=== PATIENT | male | born 1980 | race Caucasian/White ===

== ENCOUNTER 2016-04-20 20:33 | Inpatient (IN) | payer OTHER ==
[~2016-04-20] VITALS: Ht 175.3 cm; Wt 68.7 kg
[~2016-04-20 20:33] MED LIST: Aspirin PO; CREON DR 24,001 EACH PO; ELIQUIS2.5 MG PO; ESCITALOPRAM10 MG PO; FLUOXETINE HCL20 MG PO; FOLIC ACID 1 MG PO; HUMALOG100 U/ML IC; IMODIUM 2 MG. CA2 MG PO; LANTUS INS100 UNITS/ IC; LEVEMIR 10100 UNITS/ SC; LEVEMIR FL100 UNIT/1 SC; LEXAPRO 10MG10 MG PO; MOTRIN 600 MG600 MG PO; NALTREXONE HCL50 MG PO; NEURONTIN300 MG PO; NEXIUM40 M1 PO; NOVOLOG100 U/ML; NOVOLOG100 U/ML SC; PANTOPRAZOLE SO40 MG PO; PERCOCET 325 MG1 TA2 PO; PERCOCET 5-3251 EACH PO; PRILOSEC 20MG C20 MG PO; QUETIAPINE FUMA25 MG PO; REMERON 15MG TA15 MG PO; SEROQUEL50 MG PO; TYLENOL TAB 32325 MG PO; Theragran Vitamins PO; VICODIN 5-3001 EACH PO; VISTARIL50 MG PO; VITAMIN B1100 MG PO; ZOFRAN ODT4 M1 SL; ZOFRAN4 M2 PO
[2016-04-20 21:15] LABS: ABSOLUTE BASOPHIL COUNT 0 /CUMM (0.0-0.2); ABSOLUTE EOSINOPHIL COUNT 0.1 /CUMM (0.0-0.7); ABSOLUTE GRANULOCYTE CT 4.2 /CUMM (1.4-6.5); ABSOLUTE LYMPH COUNT 2.9 /CUMM (1.2-3.4); ABSOLUTE MONOCYTE COUNT 0.3 /CUMM (0.10-0.60); BASOPHIL % 0.5 % (0.0-2.0); EOSINOPHIL % 1.3 % (0-5); GRANULOCYTE % 56.2 % (42.2-75.2); MEAN CORPUSCULAR HGB 29.4 PG (27.0-31.0); MEAN CORPUSCULAR HGB CONC 33.6 G/DL (33.0-37.0); MEAN CORPUSCULAR VOLUME 87.5 FL (80.0-94.0); MEAN PLATELET VOLUME 8.7 FL (7.4-10.4); PLATELET COUNT 220 /CUMM (130-400); RBC DISTRIBUTION WIDTH 15.1 % (11.5-14.5); RED BLOOD CELL CT 5.03 /CUMM (4.70-6.10); WHITE BLOOD CELL COUNT 7.5 /CUMM (4.8-10.8)
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
[2016-04-21 07:10] VITALS: BP 89/54
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
[2016-04-21 09:00] VITALS: BP 108/62
[2016-04-21 16:00] VITALS: BP 92/50
[2016-04-21 20:00] VITALS: BP 104/62
[2016-04-21 22:00] VITALS: BP 104/64
--- NOTE | 2016-04-21 22:42 | Admission Certification ---
Admission Certification Certification Statement - As attending physician, I certify that at the time of - admission, based on clinical presentation, severity of - symptoms, need for further diagnostic testing and - therapeutic interventions, and risk of adverse outcomes - without in-hospital treatment, in my clinical assessment, - this patient requires an acute hospital stay for a minimum - of two nights or longer. I have also considered psychsocial - factors such as support system, advanced age, financial - issues, cognitive issues, and failed out-patient treatments, - past re-admission history, safety of patient, and lack of - compliance as applicable. Specific rationale supporting this admission is: Intentional insulin overdose, hypoglycemia. Suicide attempt.
[2016-04-22] VITALS (9 sets, daily range): BP systolic 93–154; BP diastolic 57–80
--- NOTE | 2016-04-22 08:12 | PN- Diabetes ---
Assessment/Plan Assessment: The patient is still having low sugars. His fingerstick blood sugar this morning is 67. He took about 200 units of Levemir at 6 PM about 36 hours ago. However the effects have persisted as he is probably absorbing it slowly over time. He is able to eat to help keep his sugar up and at times he has received 50% glucose. The patient is alert and awake this morning and states he feels OK. He is going to eat breakfast. Plan: Suggest continue D10W intravenously and continue to monitor his sugars every few hours. He should continue to eat a high carbohydrate diet. He states that his usual dose of insulin is 20 units of Levemir once a day If his sugars become begin to become elevated tonight we could begin Levemir 10 units once a day beginning this evening. Subjective Subjective: Feels okay. Notices low sugar at times. Objective Last 24 Hrs of Vital Signs/I&O Vital Signs Date Time Temp Pulse Resp B/P Pulse O2 O2 Flow FiO2 Ox Delivery Rate 04/22 0600 75 20 95/57 /02 0400 97.7 55 18 100/60 04/22 0400 97 Room Air / 0200 85 16 118/64 02 0000 Room Air 02/ 0000 98.2 61 18 100/60 Room Air 02/02 0000 98.2 61 18 100/60 / 2200 98.4 72 22 104/64 02/ 2000 98.4 78 22 104/62 02/01 1600 98.1 62 13 92/50 95 Room Air 02/ 0900 98.0 76 16 108/62 97 Room Air 02/ 0829 97.5 82 18 116/59 95 Room Air Intake & Output / 1600 02/02 0800 /02 0000 Intake Total 1350 3700 Output Total 800 Balance 1350 2900 Intake, IV 1200 2200 Intake, Oral 150 1500 Output, Urine 800 Vital Signs Date Time Temp Pulse Resp B/P Pulse O2 O2 Flow FiO2 Ox Delivery Rate 04/22 0600 75 20 95/57 /02 0400 97.7 55 18 100/60 /02 0400 97 Room Air /02 0200 85 16 118/64 02/02 0000 Room Air 02/02 0000 98.2 61 18 100/60 Room Air 02/02 0000 98.2 61 18 100/60 02/01 2200 98.4 72 22 104/64 02/ 2000 98.4 78 22 104/62 02/ 1600 98.1 62 13 92/50 95 Room Air / 0900 98.0 76 16 108/62 97 Room Air / 0829 97.5 82 18 116/59 95 Room Air Intake & Output / 1600 / 0800 / 0000 Intake Total 1350 3700 Output Total 800 Balance 1350 2900 Intake, IV 1200 2200 Intake, Oral 150 1500 Output, Urine 800 Physical Exam General Appearance: well developed/nourished, alert, awake Head: atraumatic Respiratory: normal breath sounds Cardiovascular: regular rate/rhythm Abdomen: normal bowel sounds Extremities: normal inspection Current Medications: Current Medications Sig/Alejandrina Start time Last Medication Dose Route Stop Time Status Admin Acetaminophen 1,000 MG Q6P PRN 04/21 0915 AC IV Acetaminophen 650 MG Q6-PRN PRN 04/21 0215 AC PO Cyanocobalamin/ 1 BAG DAILY 04/21 1000 KY Thiamine/Pyridoxine IV Dextrose/Water 1,000 ML Dextrose 25 GM ONCE ONE 04/22 0230 DC 04/22 IV 04/22 0231 0231 Dextrose 25 GM Q1 NEEDED PRN 04/21 1000 AC IV Dextrose 25 GM ONCE ONE 04/21 0945 DC 04/21 IV 04/21 0946 0930 Dextrose/Water 1,000 ML Q8H 04/21 1104 AC 04/22 IV 0234 Dextrose/Water 1,000 ML Q10H 04/21 0100 DC 04/21 IV 1029 Enoxaparin Sodium 40 MG DAILY 04/21 1000 AC 04/21 SC 1029 Fluoxetine HCl 20 MG DAILY 04/21 1000 AC 04/21 PO 1029 Folic Acid 1 MG DAILY 04/21 1115 AC 04/21 PO 1254 Lorazepam 1.5 MG Q6H 04/22 1200 AC PO 04/23 0601 Lorazepam 2 MG Q6 04/21 1200 DC 04/22 PO 0529 Lorazepam 0 Q1P PRN 04/21 1115 AC IV Magnesium Oxide 800 MG ONCE ONE 04/21 1700 DC 02/ PO 04/21 1701 1825 Magnesium Oxide 800 MG ONE ONE 04/21 1000 DC 02 PO 04/21 1001 1105 Melatonin 5 MG AT BEDTIME 04/21 2245 AC 04/21 PO 2350 Multivitamins 1 TAB DAILY 04/21 1115 AC 04/21 PO 1254 Ondansetron HCl 4 MG Q6P PRN 04/21 0915 AC 04/21 IV 1105 Oxycodone/ 2 TAB Q6P PRN 04/21 0915 AC 04/22 Acetaminophen PO 0808 Pantoprazole Sodium 40 MG DAILY 04/21 0215 AC IV Potassium Chloride 40 MEQ ONCE ONE 04/21 1000 DC 04/21 PO 04/21 1001 1031 Potassium Chloride 0 .STK-MED ONE 04/21 0822 DC PO Potassium Chloride 20 MEQ ONCE ONE 04/21 0815 DC 04/21 PO 04/21 0816 0823 Thiamine HCl 100 MG DAILY 04/21 1115 AC 04/21 PO 1254 Findings Pertinent Lab/Judson Results: Laboratory Tests 04/22 04/21 04/21 04/21 04/21 0655 1455 1430 0850 0850 Chemistry Sodium (137 - 145 mmol/L) 135 L 136 L 141 Potassium (3.5 - 5.1 mmol/L) 3.9 4.4 3.8 Chloride (98 - 107 mmol/L) 101 100 103 Carbon Dioxide (22 - 30 mmol/L) 30 30 27 Anion Gap (5 - 16) 4 L 7 11 BUN (9 - 20 mg/dL) 9 14 13 Creatinine (0.7 - 1.2 mg/dL) 0.7 0.8 0.7 Estimated GFR (>60 ml/min) > 60 > 60 > 60 Glucose (65 - 99 mg/dL) 90 103 H 55 L Lactic Acid (0.7 - 2.1 mmol/L) 1.7 2.7 H Calcium (8.4 - 10.2 mg/dL) 8.7 8.5 8.6 Phosphorus (2.5 - 4.5 mg/dL) 3.6 4.2 3.5 Magnesium (1.6 - 2.3 mg/dL) 1.8 1.4 L 1.3 L Total Bilirubin (0.2 - 1.3 mg/dL) 1.0 0.6 0.7 AST (17 - 59 U/L) 52 46 54 ALT (21 - 72 U/L) 45 47 47 Albumin (3.5 - 5.0 g/dL) 3.4 L 3.6 3.9 Toxicology Urine Opiates Screen (>2000 NG/ML) 263.00 Methadone Screen (>300 NG/ML) < 40 Barbiturate Screen (>200 NG/ML) < 60 Ur Phencyclidine Scrn (>25 NG/ML) < 6.00 Amphetamines Screen (>1000 NG/ML) < 100 U Benzodiazepines Scrn (>200 NG/ML) < 85 Urine Cocaine Screen (>300 NG/ML) < 50 Urine Cannabis Screen (>50 NG/ML) < 5.00
--- NOTE | 2016-04-22 09:21 | PN- CRCU ---
Subjective HPI/Critical Care Issues: pt seen and examined glucose still low 67 finger stick this am pt awake and alert no n/v/d/c no bush no dizziness no cp no dyspnea Objective Current Medications: Current Medications Sig/Alejandrina Start time Last Medication Dose Route Stop Time Status Admin Acetaminophen 1,000 MG Q6P PRN 04/21 0915 AC IV Acetaminophen 650 MG Q6-PRN PRN 04/21 0215 AC PO Cyanocobalamin/ 1 BAG DAILY 04/21 1000 DC Thiamine/Pyridoxine IV Dextrose/Water 1,000 ML Dextrose 25 GM ONCE ONE 04/22 0230 DC 04/22 IV 04/22 0231 0231 Dextrose 25 GM Q1 NEEDED PRN 04/21 1000 AC IV Dextrose 25 GM ONCE ONE 04/21 0945 DC 04/21 IV 04/21 0946 0930 Dextrose/Water 1,000 ML Q8H 04/21 1104 AC 04/22 IV 0234 Dextrose/Water 1,000 ML Q10H 04/21 0100 DC 04/21 IV 1029 Enoxaparin Sodium 40 MG DAILY 04/21 1000 AC 04/21 SC 1029 Fluoxetine HCl 20 MG DAILY 04/21 1000 AC 04/21 PO 1029 Folic Acid 1 MG DAILY 04/21 1115 AC 04/21 PO 1254 Lorazepam 1.5 MG Q6H 04/22 1200 AC PO 04/23 0601 Lorazepam 2 MG Q6 04/21 1200 DC 04/22 PO 0529 Lorazepam 0 Q1P PRN 04/21 1115 AC IV Magnesium Oxide 800 MG ONCE ONE 04/22 0915 DC PO 04/22 0916 Magnesium Oxide 800 MG ONCE ONE 04/21 1700 DC 04/21 PO 04/21 1701 1825 Magnesium Oxide 800 MG ONE ONE 04/21 1000 DC 04/21 PO 04/21 1001 1105 Melatonin 5 MG AT BEDTIME 04/21 2245 AC 04/21 PO 2350 Multivitamins 1 TAB DAILY 04/21 1115 AC 04/21 PO 1254 Ondansetron HCl 4 MG Q6P PRN 04/21 0915 AC 04/21 IV 1105 Oxycodone/ 2 TAB Q6P PRN 04/21 0915 AC 04/22 Acetaminophen PO 0808 Pantoprazole Sodium 40 MG DAILY 04/21 0215 AC IV Potassium Chloride 40 MEQ ONCE ONE 04/22 0915 DC PO 04/22 0916 Potassium Chloride 40 MEQ ONCE ONE 04/21 1000 DC 04/21 PO 04/21 1001 1031 Thiamine HCl 100 MG DAILY 04/21 1115 AC 04/21 PO 1254 Vital Signs & I&O Last 24 Hrs of Vitals and I&O: Vital Signs Date Time Temp Pulse Resp B/P Pulse O2 O2 Flow FiO2 Ox Delivery Rate 04/22 0600 75 20 95/57 04/22 0400 97.7 55 18 100/60 04/22 0400 97 Room Air 04/22 0200 85 16 118/64 04/22 0000 Room Air 04/22 0000 98.2 61 18 100/60 Room Air 04/22 0000 98.2 61 18 100/60 04/21 2200 98.4 72 22 104/64 04/21 2000 98.4 78 22 104/62 04/21 1600 98.1 62 13 92/50 95 Room Air Intake & Output 04/22 1600 04/22 0800 04/22 0000 Intake Total 1350 3700 Output Total 800 Balance 1350 2900 Intake, IV 1200 2200 Intake, Oral 150 1500 Output, Urine 800 Exam Other Physical Findings: gen awake and alert heent ncat cvs s1, s2 lungs ctab abd soft bs+ ext without edema Results Last 24 Hrs of Lab Results: Laboratory Tests 04/22/16 0655: Anion Gap 4 L, Estimated GFR > 60, Glucose 90, Calcium 8.7, Phosphorus 3.6, Magnesium 1.8, Total Bilirubin 1.0, AST 52, ALT 45, Albumin 3.4 L 04/21/16 1455: Anion Gap 7, Estimated GFR > 60, Glucose 103 H, Lactic Acid 1.7, Calcium 8.5, Phosphorus 4.2, Magnesium 1.4 L, Total Bilirubin 0.6, AST 46, ALT 47, Albumin 3.6 04/21/16 1430: Urine Opiates Screen 263.00, Methadone Screen < 40, Barbiturate Screen < 60, Ur Phencyclidine Scrn < 6.00, Amphetamines Screen < 100, U Benzodiazepines Scrn < 85, Urine Cocaine Screen < 50, Urine Cannabis Screen < 5.00 Impression/Plan Impression/Plan Impression/Plan: Impression 35-year-old man with diabetes history of PE with a suicide attempt multiple times in the past as well. Ingestion/misuse of subcutaneous insulin. Plan -Endocrinology consultation -Psychiatry consultation -Monitor fingersticks -Once off D10 can be DG to GM -The patient has not been taking Eliquis for his history of PE however given his suicide attempt it would not be to start an anticoagulant, if he overdoses on this, it will be life threatening, he should not be anticoagulated based on his suicide attempt history -DVT prophylaxis at all times at this time TTS 35 min
--- NOTE | 2016-04-22 11:40 | PN- Resident CRCU ---
Subjective HPI/CRCU Issues: Pt in ICU for: suicide attempt with insulin overdose now getting D10 fluids. Saw pt at bedside. He is doingwell this am. no complaints. no acute overnight events. Lowest sugar at 67; no D50 administered; pt encouraged to drink juice and eat carbx. Objective Vital Signs & I&O Last 8 Hrs of Vitals and I&O: Laboratory Tests 04/22 04/21 04/21 0655 1455 1430 Chemistry Sodium (137 - 145 mmol/L) 135 L 136 L Potassium (3.5 - 5.1 mmol/L) 3.9 4.4 Chloride (98 - 107 mmol/L) 101 100 Carbon Dioxide (22 - 30 mmol/L) 30 30 Anion Gap (5 - 16) 4 L 7 BUN (9 - 20 mg/dL) 9 14 Creatinine (0.7 - 1.2 mg/dL) 0.7 0.8 Estimated GFR (>60 ml/min) > 60 > 60 Glucose (65 - 99 mg/dL) 90 103 H Lactic Acid (0.7 - 2.1 mmol/L) 1.7 Calcium (8.4 - 10.2 mg/dL) 8.7 8.5 Phosphorus (2.5 - 4.5 mg/dL) 3.6 4.2 Magnesium (1.6 - 2.3 mg/dL) 1.8 1.4 L Total Bilirubin (0.2 - 1.3 mg/dL) 1.0 0.6 AST (17 - 59 U/L) 52 46 ALT (21 - 72 U/L) 45 47 Albumin (3.5 - 5.0 g/dL) 3.4 L 3.6 Toxicology Urine Opiates Screen (>2000 NG/ML) 263.00 Methadone Screen (>300 NG/ML) < 40 Barbiturate Screen (>200 NG/ML) < 60 Ur Phencyclidine Scrn (>25 NG/ML) < 6.00 Amphetamines Screen (>1000 NG/ML) < 100 U Benzodiazepines Scrn (>200 NG/ML) < 85 Urine Cocaine Screen (>300 NG/ML) < 50 Urine Cannabis Screen (>50 NG/ML) < 5.00 Vital Signs Date Time Temp Pulse Resp B/P Pulse O2 O2 Flow FiO2 Ox Delivery Rate 04/22 1200 97.8 70 22 100/60 04/22 1200 97 Room Air Room Air 04/22 0800 97.5 84 20 93/57 /02 0800 97.5 84 20 100/60 96 Room Air Room Air 04/22 0800 95 Room Air Room Air / 0600 75 20 95/57 /02 0400 97.7 55 18 100/60 / 0400 97 Room Air / 0200 85 16 118/64 / 0000 Room Air / 0000 98.2 61 18 100/60 Room Air / 0000 98.2 61 18 100/60 04/21 2200 98.4 72 22 104/64 / 2000 98.4 78 22 104/62 04/21 1600 98.1 62 13 92/50 95 Room Air Intake & Output 04/22 1600 04/22 0800 04/22 0000 Intake Total 1350 3700 Output Total 800 Balance 1350 2900 Intake, IV 1200 2200 Intake, Oral 150 1500 Output, Urine 800 Exam General Appearance: well developed/nourished, no apparent distress, alert, awake Head: atraumatic, normal appearance Ears, Nose, Throat: normal pharynx Neck: normal inspection, supple Respiratory: normal breath sounds, chest non-tender, no respiratory distress, quiet respiration, lungs clear Cardiovascular: regular rate/rhythm Gastrointestinal: soft, non-tender Extremities: normal inspection IV Drips IV Drips: d10 Nutrition Nutrition: P.O. diet Current Medications: Current Medications Sig/Alejandrina Start time Last Medication Dose Route Stop Time Status Admin Acetaminophen 1,000 MG Q6P PRN 04/21 0915 AC IV Acetaminophen 650 MG Q6-PRN PRN 04/21 0215 AC PO Dextrose 25 GM ONCE ONE 04/22 0230 DC 04/22 IV 04/22 0231 0231 Dextrose 25 GM Q1 NEEDED PRN 04/21 1000 AC IV Dextrose/Water 1,000 ML Q8H 04/21 1104 AC 04/22 IV 1116 Enoxaparin Sodium 40 MG DAILY 04/21 1000 AC 04/21 SC 1029 Fluoxetine HCl 20 MG DAILY 04/21 1000 AC 04/22 PO 1100 Folic Acid 1 MG DAILY 04/21 1115 AC 04/22 PO 1100 Lorazepam 1.5 MG Q6H 04/22 1200 AC PO 04/23 0601 Lorazepam 2 MG Q6 04/21 1200 DC 04/22 PO 0529 Lorazepam 0 Q1P PRN 04/21 1115 AC IV Magnesium Oxide 800 MG ONCE ONE 04/22 0915 DC 04/22 PO 04/22 0916 1059 Magnesium Oxide 800 MG ONCE ONE 04/21 1700 DC 04/21 PO 04/21 1701 1825 Melatonin 5 MG AT BEDTIME 04/21 2245 AC 04/21 PO 2350 Multivitamins 1 TAB DAILY 04/21 1115 AC 04/22 PO 1100 Ondansetron HCl 4 MG Q6P PRN 04/21 0915 AC 04/21 IV 1105 Oxycodone/ 2 TAB Q6P PRN 04/21 0915 AC 04/22 Acetaminophen PO 0808 Pantoprazole Sodium 40 MG DAILY 04/21 0215 AC 04/22 IV 1100 Potassium Chloride 40 MEQ ONCE ONE 04/22 09 DC 04/22 PO 04/22 0916 1100 Thiamine HCl 100 MG DAILY 04/21 1115 AC 04/22 PO 1101 Impression/Plan Impression/Problem List Impression: Impression/Plan: This is a 35-year-old male with past medical history significant for alcohol dependence with chronic pancreatitis, type 1 diabetes, chronic back pain, 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 Additionally, patient has alcohol dependence with last drink of 750 mL of hard liquor on 03/20 evening. In ED he was noted to have mild hypotension, lethargy, with blood sugars ranging between 269 and 62. Admitted to ICU for D10 and q1hr accuckeck. PLAN: Respiratory: Patient satting well on room air. He has hx of PE with IVC filter and on eliquis. He has not been prescribed for several months and he has not taken it. Upon speaking with pt he stated that if he had any access to Eliquis he would have attempted to overdose on it as well. Considering that it could be potentially fatal the risk-benefit strategy would suggest that pt remain off anticoagulation as he more likely to harm himself with medication. Continue to monitor. Per CT in January 2016: IVC filter unchanged. ID: Hypothermic, with normal white count. Does not complain of change in abdominal pain. Con't monitor. CVS:Had Bp in 80s/50s during ED admission. Today BP WNL. Heme/onc: stable. Con't monitor Musculoskeletal: Stable. Con't monitor GI: Chronic pancreatitis: STABLE. Pt has chronic pancreatitis secondary to etoh/ multiple episodes of acute pancreatitis. Per CT done in Jan 2016:Chronic changes related to findings consistent with a chronic pancreatitis unchanged. No evidence for recurrent acute pancreatitis. No pseudocyst or peripancreatic mass. He does not complain of increase or change in quality of abdominal pain. Con't monitor. Amylase lipase within normal limits. Normal LFT * Out pt f/u Nephro: Per CT-Small minimally complex right renal cyst with small amount of peripheral calcification versus adjacent small stone' this has remained stable dating back to 2011 compatible with a benign finding. * Out pt f/u Endo: Insulin overdose: Patient reportedly took 200 units of insulin for overdose and suicide attempt. Unsure how much he actually took. However his insulin level was at 52 during admission. He has resumed eating regular diet. We will encourage high carbohydrate intake initially. Once his blood sugars stabilize we'll plan for your insulin sliding scale and his home dose of 14 units Levemir twice a day. He was on D10 at 125; his last glucose > 200 so we are decreasing rate fo fluids with goal to be off after 3 blood sugars in a row WNL. Additionallyl, AM cortisol 10.3. Lactic acid 2.7. No anion gap, renal function WNL. * repeat labs at 11 AM * high carb diet * plan for resuming home regimen once blood sugars stabilize * D10 at 75cc/hr Psych: Alcohol abuse: He is off banana bag. Started multivitamin. Folic acid given. Today Magnesium 1.3, potassium 3.4. Lat drink on night of admission. Drank a bottle of hard liquor. Currently denying any sob, tremors, shakes, chest pain, etc. Of note Acetaminophen level less than 10, Serum alcohol 367, Negative acetone. CT-TRANSPLANT NURSE shows extensive use of hydrocodone and oxycodone; no prescription of Benzos. * ciwa protocol: Last scores 0,0,0,2,3 * standing 2mg q6 ativan * replete mag and K Pt has supposed hx of: mood disorder, malingering, self-mutilation and cutting, personality disorder, and depression. * psych * social work * utox Full code regualr diet Chemcial dvt ppx Problem List: 1. Chronic pancreatitis 2. Nausea and vomiting 3. Abdominal pain 4. Hypoglycemia due to insulin 5. Suicidal ideation Pain Ratin Pain Location: none Tomorrow's Labs & Rationales: cbc icu Plan DVT/Prophylaxis: pharmacological
--- NOTE | 2016-04-22 13:24 | Cons- Psychiatry ---
Psychiatric Consult Date of Consult: 04/22/16 Reason for Consult: "Suicide attempt. Alcohol dependency, COPD" History of Present Illness: This is a 35-year-old male who presented to the emergency room on 04/20/2016 at 2055, having taken a bus from his home. Per the triage note, he states, "I may have taken too much of my insulin." The patient was noted to be intoxicated and smelling of alcohol in the ED, and reported that he intentionally injected too much insulin. Glucose in the ED was 47 at one point. The patient is well known to our service, and was last admitted to acute inpatient psychiatry in April 2015, and was discharged to a longer term residential program[facility] in [place]. The patient reports today that he was in the [facility] facility, and transferred to the [facility] on [facility] in [place] for 5 months, began drinking, transferred back to [facility] for a few days. The people from [facility] helped him to get a job at [employer] in [place], where he had been working until recently. He had been living with a female friend, who is in recovery, at her place since August 2015. The patient reports that he had a few beers at [facility] and [place], "I didn't think anything of it;" then "I got rocked [intoxicated]" on [place]. CIWA scores from 04/22/2016 0800: 2-4-9-8-3-2-8-8-3-1-1-4-3-0 VS 04/22/16 0800: 100/60, 84HR, 97.5, 20RR, 96% on room air. The patient is currently on lorazepam 1.5 mg PO every 6 hours scheduled for 4 doses, and has lorazepam when necessary ordered per CIWA. He is receiving daily thiamine, folic acid and multivitamin. Allergies: Coded Allergies: adhesive tape (UNKNOWN REACTION TO SURGICAL TAPE 05/13/15) amylase (From Creon) (RASH 05/13/15) lipase (From Creon) (RASH 05/13/15) pancrelipase (RASH 05/13/15) protease (From Creon) (RASH 05/13/15) tramadol (Mild, DIZZY 05/13/15) ketorolac (From TORADOL) (MUSCLE CRAMPING 01/12/16) Current Medications: Current Medications Sig/Alejandrina Start time Last Medication Dose Route Stop Time Status Admin Acetaminophen 1,000 MG Q6P PRN 04/21 0915 AC IV Acetaminophen 650 MG Q6-PRN PRN 04/21 0215 PO Dextrose 25 GM ONCE ONE 04/22 0230 DC 04/22 IV 04/22 0231 0231 Dextrose 25 GM Q1 NEEDED PRN 04/21 1000 AC IV Dextrose/Water 1,000 ML Q8H 04/21 1104 AC 04/22 IV 1116 Enoxaparin Sodium 40 MG DAILY 04/21 1000 AC 04/21 SC 1029 Fluoxetine HCl 20 MG DAILY 04/21 1000 AC 04/22 PO 1100 Folic Acid 1 MG DAILY 04/21 1115 AC 04/22 PO 1100 Lorazepam 1.5 MG Q6H 04/22 1200 AC PO 04/23 0601 Lorazepam 2 MG Q6 04/21 1200 DC 04/22 PO 0529 Lorazepam 0 Q1P PRN 04/21 1115 IV Magnesium Oxide 800 MG ONCE ONE 04/22 0915 DC 04/22 PO 04/22 0916 1059 Magnesium Oxide 800 MG ONCE ONE 04/21 1700 DC 04/21 PO 04/21 1701 1825 Melatonin 5 MG AT BEDTIME 04/21 2245 AC 04/21 PO 2350 Multivitamins 1 TAB DAILY 04/21 1115 AC 04/22 PO 1100 Ondansetron HCl 4 MG Q6P PRN 04/21 0915 AC 04/21 IV 1105 Oxycodone/ 2 TAB Q6P PRN 04/21 0915 AC 04/22 Acetaminophen PO 0808 Pantoprazole Sodium 40 MG DAILY 04/21 0215 AC 04/22 IV 1100 Potassium Chloride 40 MEQ ONCE ONE 04/22 0915 DC 04/22 PO 04/22 0916 1100 Thiamine HCl 100 MG DAILY 04/21 1115 AC 04/22 PO 1101 Past History Past Medical History Neurological: history of TBI EENT: NONE Cardiovascular: NONE Respiratory: pulmonary embolism Gastrointestinal: pancreatitis (complicated by pseudocyst), upper GI bleed, Piedad-Valentino tear Hepatic: NONE Renal: NONE Musculoskeletal: NONE Psychiatric: alcohol dependence, depression, PTSD benzodiazepine dependence suicide attempts Endocrine: diabetes, intentional insulin overdoses Blood Disorders: PE Cancer(s): NONE RISK ANALYST/Reproductive: NONE Past Surgical History Surgical History: IVC filter placement GREY IN R LEG R SCAPULA REPAIR Psychosocial History Strengths/Capabilities: Can be Resourceful; engaging; hard worker, will seek help as needed, sober for 2 months Physical Limitations (Interventions): Patient has several serious medical issues. Psychiatric Treatment History Psych Treatment Psychiatric Treatment Yes Inpatient Treatment Yes Outpatient Treatment Yes Location of Treatment [facility], [facility], and [facility] Reason for Treatment Suicidal ideation, depression, alcohol dependence, benzodiazepine abuse Response to Treatment Improved for short periods of time Diagnosis: Alcohol dependence, benzodiazepine dependence, mood disorder NOS, suicidal ideation, rule out bipolar disorder NOS, personality disorder NOS, with narcissistic traits, rule out antisocial traits. Risk Factors: age (under 24/over 65) (HOMELESS), access to lethal means, high anxiety/distress, history of suicide atmpts, SA/MH hospitalized, substance abuse , isolate/no social support, poor impulse control, male, limited support Substance Use/Abuse History Drug Use/Abuse Substances Used/Abused Yes Substance Used/Abused Alcohol Assessment/Plan Mental Status Orientation: Person, Place, Situation Affect: Constricted, WNL Speech: WNL Mental Status Exam: The patient is sitting up in his bed in ICU room 105. His 1:1 sitter is present , but leaves the room during the interview. He is alert and oriented. He denies history of seizure He denies auditory, visual or tactile hallucinations, and presents no torres delusions. He denies suicidal or homicidal ideation. He reports that he feels safe with himself at this time. He makes a verbal contract to stay safe while in the hospital, and also to not leave before treatment is finished. Insight and judgment are poor. Lab Results: Laboratory Tests 04/22 04/21 04/21 04/21 04/21 0655 1455 1430 0850 0850 Chemistry Sodium (137 - 145 mmol/L) 135 L 136 L 141 Potassium (3.5 - 5.1 mmol/L) 3.9 4.4 3.8 Chloride (98 - 107 mmol/L) 101 100 103 Carbon Dioxide (22 - 30 mmol/L) 30 30 27 Anion Gap (5 - 16) 4 L 7 11 BUN (9 - 20 mg/dL) 9 14 13 Creatinine (0.7 - 1.2 mg/dL) 0.7 0.8 0.7 Estimated GFR (>60 ml/min) > 60 > 60 > 60 Glucose (65 - 99 mg/dL) 90 103 H 55 L Lactic Acid (0.7 - 2.1 mmol/L) 1.7 2.7 H Calcium (8.4 - 10.2 mg/dL) 8.7 8.5 8.6 Phosphorus (2.5 - 4.5 mg/dL) 3.6 4.2 3.5 Magnesium (1.6 - 2.3 mg/dL) 1.8 1.4 L 1.3 L Total Bilirubin (0.2 - 1.3 mg/dL) 1.0 0.6 0.7 AST (17 - 59 U/L) 52 46 54 ALT (21 - 72 U/L) 45 47 47 Albumin (3.5 - 5.0 g/dL) 3.4 L 3.6 3.9 Toxicology Urine Opiates Screen (>2000 NG/ML) 263.00 Methadone Screen (>300 NG/ML) < 40 Barbiturate Screen (>200 NG/ML) < 60 Ur Phencyclidine Scrn (>25 NG/ML) < 6.00 Amphetamines Screen (>1000 NG/ML) < 100 U Benzodiazepines Scrn (>200 NG/ML) < 85 Urine Cocaine Screen (>300 NG/ML) < 50 Urine Cannabis Screen (>50 NG/ML) < 5.00 02 02 02 02 0600 0500 0500 0210 Chemistry Sodium (137 - 145 mmol/L) 145 Potassium (3.5 - 5.1 mmol/L) 3.4 L Chloride (98 - 107 mmol/L) 108 H Carbon Dioxide (22 - 30 mmol/L) 25 Anion Gap (5 - 16) 13 BUN (9 - 20 mg/dL) 12 Creatinine (0.7 - 1.2 mg/dL) 0.6 L Estimated GFR (>60 ml/min) > 60 BUN/Creatinine Ratio (7 - 25 %) 20.0 Hemoglobin A1c (<5.7) 11.3 H Insulin Level (3.0 - 25.0 mIU/mL) Cancelled 52.6 H Lactic Acid (0.7 - 2.1 mmol/L) 2.6 H 2.6 H Cortisol AM Sample (4.46 - 22.7 ug/dL) 10.3 Toxicology Acetaminophen (10.0 - 30.0 ug/mL) < 10.0 L 04/21 04/20 04/20 0217 2143 2108 Blood Gas Bicarbonate Actual (22 - 26 MEQ/L) 24 Mixed VBG pH (7.31 - 7.41 PH) 7.39 Mixed VBG pCO2 (41 - 51 TORR) 41 Mixed VBG O2 Saturation (35 - 45 TORR) 67 H P-50 (Temp Corrected) N Carboxyhemoglobin (1.5 - 5.0 %) 39 *H O2 Concentration % RA Temperature (97.0 - 100.0 FARH) 98.6 Chemistry Sodium (137 - 145 mmol/L) 148 H 144 Potassium (3.5 - 5.1 mmol/L) 3.4 L 3.9 Chloride (98 - 107 mmol/L) 107 100 Carbon Dioxide (22 - 30 mmol/L) 25 23 Anion Gap (5 - 16) 16 21 H BUN (9 - 20 mg/dL) 12 12 Creatinine (0.7 - 1.2 mg/dL) 0.7 0.6 L Estimated GFR (>60 ml/min) > 60 > 60 BUN/Creatinine Ratio (7 - 25 %) 17.1 20.0 Glucose (65 - 99 mg/dL) 47 *L 269 H Lactic Acid (0.7 - 2.1 mmol/L) 3.0 H Calcium (8.4 - 10.2 mg/dL) 8.7 9.2 Magnesium (1.6 - 2.3 mg/dL) 1.7 Total Bilirubin (0.2 - 1.3 mg/dL) 0.4 AST (17 - 59 U/L) 56 ALT (21 - 72 U/L) 55 Alkaline Phosphatase (< 127 U/L) 69 Troponin I (<0.11 ng/ml) < 0.01 Total Protein (6.3 - 8.2 g/dL) 7.6 Albumin (3.5 - 5.0 g/dL) 4.8 Globulin (1.9 - 4.2 gm/dL) 2.8 Albumin/Globulin Ratio (1.1 - 2.2 %) 1.7 Amylase (30 - 110 U/L) < 30 L Lipase (23 - 300 U/L) 28 Hematology CBC w Diff NO MAN DIFF REQ WBC (4.8 - 10.8 /CUMM) 7.5 RBC (4.70 - 6.10 /CUMM) 5.03 Hgb (14.0 - 18.0 G/DL) 14.8 Hct (42 - 52 %) 44.0 MCV (80.0 - 94.0 FL) 87.5 MCH (27.0 - 31.0 PG) 29.4 RDW (11.5 - 14.5 %) 15.1 H Plt Count (130 - 400 /CUMM) 220 MPV (7.4 - 10.4 FL) 8.7 Gran % (42.2 - 75.2 %) 56.2 Lymphocytes % (20.5 - 51.1 %) 38.2 Monocytes % (1.7 - 9.3 %) 3.8 Eosinophils % (0 - 5 %) 1.3 Basophils % (0.0 - 2.0 %) 0.5 Absolute Granulocytes (1.4 - 6.5 /CUMM) 4.2 Absolute Lymphocytes (1.2 - 3.4 /CUMM) 2.9 Absolute Monocytes (0.10 - 0.60 /CUMM) 0.3 Absolute Eosinophils (0.0 - 0.7 /CUMM) 0.1 Absolute Basophils (0.0 - 0.2 /CUMM) 0 PUBS MCHC (33.0 - 37.0 G/DL) 33.6 Miscellaneous Phlebotomy Draw Site L WRIST Toxicology Methadone Screen Cancelled Acetaminophen (10.0 - 30.0 ug/mL) < 10.0 L Barbiturate Screen Cancelled Ur Phencyclidine Scrn Cancelled Amphetamines Screen Cancelled U Benzodiazepines Scrn Cancelled Urine Cocaine Screen Cancelled Urine Cannabis Screen Cancelled Serum Alcohol (<10 MG/DL) 367.0 Acetone Level (NEGATIVE) NEGATIVE NEGATIVE Diffential Diagnosis: Alcohol use disorder, moderate, recurrent Substance induced mood disorder Depression NOS Rule out bipolar disorder Impression: The patient reports that his trigger for overdosing on insulin and coming to the hospital was to get away from the female friend that he lives with. This friend is in recovery from substance or alcohol abuse, and was talking to the patient about quitting his drinking. The patient reports that he has had 2-3 months of sobriety in the last year. He has asked his nurse to reduce his Ativan dosing, as he is on a taper for alcohol withdrawal. I've asked patient to take it as ordered, and that we are reducing it at a reasonable rate to prevent seizure. The patient denies having a seizure event in the past. He feels that if he discharges stewards current situation, "I'll be back in the shit." He would prefer the structured program such as [facility], [facility]. He may also qualify for a [facility] bed at [facility]. I've discussed these possibilities briefly with Brooklynn Joshua LCSW, who will discuss them with the patient again. The patient can possibly discharge without acute inpatient psychiatry if a safe plan can be found, including living situation. He is not currently medically clear yet, as the ICU team is reducing his IV glucose, after which he will be observed for stability. Provisional Treatment Plan: 1. Continue "EtOH detox" benzodiazepam taper protocol. 2. Continue fluoxetine 20 mg by mouth daily. 3. Continue daily thiamine, folic acid and multivitamin. 4. Continue 1:1 safety monitor 5. family caseworker, Brooklynn Joshua LCSW, is aware of the patient, and we will discuss discharge possibilities with him. 6. The patient should not be discharged until cleared by psychiatry. He may need acute inpatient psychiatry. We will continue to follow along with you. Thank you for asking us to participate in [facility]'s care. Cesar Zamora APRN, pager [phone].
[2016-04-23] VITALS (7 sets, daily range): BP systolic 100–102; BP diastolic 60–68
--- NOTE | 2016-04-23 05:39 | PN- Housestaff ---
NAE SKY 04/23/16 0539: Subjective Follow-up For: 1. insulin overdose Subjective: The patient was comfortable this morning. Did not have any new complaints. Vitals were stable overnight. Blood sugars ranged in between 156-225. Still complains of diarrhea 6 this afternoon. As per the patient, he is allergic to Zenpep. He has been taking Creon, every day. Also has been requesting nicotine gum. Low CIWA scores, has not been requiring any extra intravenous Ativan in the last 24 hours. During the day, diarrheal episodes subsided. Discussed with psychiatry, and it was certain that there was a bed available for him to be transferred to inpatient psychiatry. Currently on long-acting and NovoLog sliding scale, with adequate blood sugar control. Also notified Sherman, the nursing staff could check blood glucose every 8 hours. Also discussed with Sherman about continuing the current abdomen taper. Review of Systems Constitutional: Reports: see HPI. Objective Last 24 Hrs of Vital Signs/I&O Vital Signs Date Time Temp Pulse Resp B/P Pulse O2 O2 Flow FiO2 Ox Delivery Rate 04/22 2332 98.4 62 20 118/60 97 Room Air 04/22 1951 98.3 64 18 116/65 02/02 1600 99.1 65 20 98/60 02/02 1600 99.1 65 20 98/60 97 Room Air Room Air 02/ 1200 97.8 70 22 100/60 /02 1200 97 Room Air Room Air 02/ 0800 97.5 84 20 93/57 02/02 0800 97.5 84 20 100/60 96 Room Air Room Air 04/22 0800 95 Room Air Room Air 04/22 0600 75 20 95/57 Intake & Output /03 0800 02/03 0000 04/22 1600 Intake Total 1810 Output Total Balance 1810 Intake, IV 850 Intake, Oral 960 Number 2 Bowel Movements Physical Exam General Appearance: No Acute Distress Other Physical Findings: General Exam: AAOx3, No acute distress, Skin: No rashes, no breakdown HEENT: PERRLA, EOMI Neck: Supple, No JVD No cervical lymphadenopathy CVS: Reg Rate, Normal S1,S2, No MGR Resp: Normal air entry, no ronchi/rales Abdomen: Soft, tenderness positive, Normal Bowel Sounds Neuro: Normal Speech, Strength 5/5 b/l x 4 extremities, Sensation intact, CN III -XII NL, Reflexes 2+ Extremities: No cyanosis, pedal edema Current Medications: Current Medications Sig/Alejandrina Start time Last Medication Dose Route Stop Time Status Admin Acetaminophen 1,000 MG Q6P PRN 04/21 0915 IV Acetaminophen 650 MG Q6-PRN PRN 04/21 0215 PO Dextrose 25 GM Q1 NEEDED PRN 04/21 1000 IV Dextrose/Water 1,000 ML Q8H 04/21 1104 AL 04/22 IV 1116 Enoxaparin Sodium 40 MG DAILY 04/21 1000 04/21 AK 1029 Fluoxetine HCl 20 MG DAILY 04/21 1000 AC 04/22 PO 1100 Folic Acid 1 MG DAILY 04/21 1115 AC 04/22 PO 1100 Insulin Detemir 10 UNITS ONCE ONE 04/22 1999 AL 04/22 AK 04/22 2000 1958 Lorazepam 1.5 MG Q6H 04/22 1200 AC 04/22 PO 04/23 0601 2356 Lorazepam 2 MG Q6 04/21 1200 AL 04/22 PO 0529 Lorazepam 0 Q1P PRN 04/21 1115 IV Magnesium Oxide 800 MG ONCE ONE 04/22 0915 AL 04/22 PO 04/22 0916 1059 Melatonin 5 MG AT BEDTIME 04/21 2245 AC 04/22 PO 2148 Multivitamins 1 TAB DAILY 04/21 1115 AC 04/22 PO 1100 Ondansetron HCl 4 MG Q6P PRN 04/21 0915 04/22 IV 1342 Oxycodone/ 2 TAB Q6P PRN 04/21 0915 AC 04/23 Acetaminophen PO 0153 Pantoprazole Sodium 40 MG DAILY 04/21 0215 04/22 IV 1100 Potassium Chloride 40 MEQ ONCE ONE 04/22 0915 AL 04/22 PO 04/22 0916 1100 Thiamine HCl 100 MG DAILY 04/21 1115 AC 04/22 PO 1101 Last 24 Hrs of Lab/Judson Results Last 24 Hrs of Labs/Mics: Laboratory Tests 04/22/16 0655: Anion Gap 4 L, Estimated GFR > 60, Glucose 90, Calcium 8.7, Phosphorus 3.6, Magnesium 1.8, Total Bilirubin 1.0, AST 52, ALT 45, Albumin 3.4 L Assessment/Plan Assessment: Mr. Castellanos is a 35-year-old man with a past history of alcohol dependence, insulin -dependent diabetes mellitus, chronic pancreatitis (on Creon), pulmonary embolism status post IVC filter (not on any NOAC, d/c'ed for traumatic brain injury), is being evaluated for surreptitious use of insulin. At the time of admission, white is indicated temperature 98.1, pulse rate 72, respiratory rate 16, blood pressure 115/67, 97% on room air. Lab findings indicated WBC 7.5, hemoglobin 14.8, platelets 220, normal sodium-136, potassium 4.4, normal renal function-BUN 14, serum creatinine 0.8. Blood glucose 47. Lactic acid 3.0 (improved to 1.7), AST, ALT-46, 47, alkaline phosphatase 69. Lipase-28. He was admitted to critical care unit, and was started on D10. After the blood sugars stabilized, he was started on Levemir and NovoLog. Differential diagnosis: #1 insulin overdose #2 alcohol abuse #3 electrolyte imbalance Below is the problem list and plan: #1 insulin overdose-currently blood sugars 225, 156. Has been started on Levemir 8 units twice a day. Insulin sliding scale 3 times a day before meals/ at bedtime as per Dr. Recinos's recommendations. #2 alcohol abuse-currently low CIWA scores. Ativan has been changed from 1.5 every 6 to 1 mg every 6. Banana bag, thiamine. #3 chronic pain-Percocet as needed. #4 chronic pancreatitis-patient has been restarted on pancreatic enzymes this a.m. Tolerating well. #5 electrolyte abnormalities-hypokalemia which is resolved. Problem List: 1. ALCOHOL WITHDRAWAL 2. Chronic pancreatitis 3. Nausea and vomiting 4. Abdominal pain Pain Ratin Pain Location: Abdomen Pain Goal: Pain 4 or less Pain Plan: Percocet Tomorrow's Labs & Rationales: No labs necessary-patient to be discharged. DVT/Prophylaxis: pharmacological SALVADOR POLANCO MD 04/23/16 1219: Attending MD Review Statement Attending Statement Attending MD Statement: examined this patient, discuss w/resident/PA/CUSTOMER SALES REPRESENTATIVE, agreed w/resident/PA/CUSTOMER SALES REPRESENTATIVE, reviewed EMR data (avail) Attending Assessment/Plan: 35M PMH Type 1 DM, history of PE s/p IVC filter not on anti-coagulation, chronic pancreatitis, anxiety, depression, multiple suicide attempts with insulin overdoses, presenting with suicide attempt from insulin overdose. Monitored in ICU overnight with transient hypoglycemia managed with dextrose drips, now hyperglycemic again. Complains only of chronic abdominal pain. Exam and labs otherwise normal. 1. Insulin induced hypoglycemia 2. Suicide attempt 3. Type 1 DM 4. Chronic pancreatitis 5. Depression Plan - Continue on general medicine - Follow endocrine recommendations - Start insulin per endocrine guidelines - Restart Creon - Continue home medications - Follow psychiatry and social work recommendations - DVT PPx
--- NOTE | 2016-04-23 07:48 | PN- Diabetes ---
Assessment/Plan Assessment: The patient is alert and awake this morning. The effects of the intentional Levemir overdose are wearing off. His blood sugars have began to become elevated again. His last few sugars are to 25 and 156. The patient did receive 1 dose of Levemir 10 units. He still hates he has some abdominal pain when eating from chronic pancreatitis.. Plan: Suggest begin Levemir today 8 units twice a day the first dose this morning. Also begin sliding scale NovoLog. Sliding-scale NovoLog before meals should be 80-150 give 3 units NovoLog, 151-200 give 4 units NovoLog, 201-250 give 5 units NovoLog, 251-300 give 6 units NovoLog, 301-350 give 7 units NovoLog, 351 of 400 give 8 units NovoLog. A separate sliding scale NovoLog for bedtime should be written. Sliding-scale NovoLog at bedtime should be less than 250 give no insulin 251-300 give 2 units NovoLog, 301-350 give 3 units NovoLog, 351 of 400 give 4 units NovoLog. The patient should be started back on pancreatic enzymes or chronic pancreatitis. Subjective Subjective: Feels okay Review of Systems Constitutional: Denies: chills, fever. Cardiovascular: Denies: chest pain. Gastrointestinal: Reports: abdominal pain. Denies: nausea, vomiting. Skin: Reports: no symptoms. Objective Last 24 Hrs of Vital Signs/I&O Vital Signs Date Time Temp Pulse Resp B/P Pulse O2 O2 Flow FiO2 Ox Delivery Rate 04/22 2331 98.4 62 20 118/60 97 Room Air 04/22 195 98.3 64 18 116/65 /02 1600 99.1 65 20 98/60 /02 1600 99.1 65 20 98/60 97 Room Air Room Air / 1200 97.8 70 22 100/60 /02 1200 97 Room Air Room Air 04/22 0800 97.5 84 20 93/57 02/02 0800 97.5 84 20 100/60 96 Room Air Room Air 04/22 0800 95 Room Air Room Air Intake & Output /03 0800 02/03 0000 04/22 1600 Intake Total 800 1810 Output Total Balance 800 1810 Intake, IV 850 Intake, Oral 800 960 Number 2 Bowel Movements Vital Signs Date Time Temp Pulse Resp B/P Pulse O2 O2 Flow FiO2 Ox Delivery Rate 04/22 2331 98.4 62 20 118/60 97 Room Air 02/ 1951 98.3 64 18 116/65 02/02 1600 99.1 65 20 98/60 02/02 1600 99.1 65 20 98/60 97 Room Air Room Air 02/ 1200 97.8 70 22 100/60 02/02 1200 97 Room Air Room Air 04/22 0800 97.5 84 20 93/57 02/ 0800 97.5 84 20 100/60 96 Room Air Room Air 04/22 0800 95 Room Air Room Air Intake & Output 04/23 0800 / 0000 04/22 1600 Intake Total 800 1810 Output Total Balance 800 1810 Intake, IV 850 Intake, Oral 800 960 Number 2 Bowel Movements Physical Exam General Appearance: alert, awake, comfortable Neck: normal inspection Respiratory: normal breath sounds Abdomen: normal bowel sounds, soft Extremities: normal inspection Current Medications: Current Medications Sig/Alejandrina Start time Last Medication Dose Route Stop Time Status Admin Acetaminophen 1,000 MG Q6P PRN 04/21 0915 IV Acetaminophen 650 MG Q6-PRN PRN 04/21 0215 PO Dextrose 25 GM Q1 NEEDED PRN 04/21 1000 IV Dextrose/Water 1,000 ML Q8H 04/21 1104 DC 04/22 IV 1116 Enoxaparin Sodium 40 MG DAILY 04/21 1000 04/21 DE 1029 Fluoxetine HCl 20 MG DAILY 04/21 1000 AC 04/22 PO 1100 Folic Acid 1 MG DAILY 04/21 1115 AC 04/22 PO 1100 Insulin Detemir 10 UNITS ONCE ONE 04/22 1999 AR 04/22 DE 04/22 2000 195 Lorazepam 1.5 MG Q6H 04/22 1200 DC 04/23 PO 04/23 0601 0636 Lorazepam 0 Q1P PRN 04/21 1115 IV Magnesium Oxide 800 MG ONCE ONE 04/22 0915 DC 04/22 PO 04/22 0916 1059 Melatonin 5 MG AT BEDTIME 04/21 2245 AC 04/22 PO 2148 Multivitamins 1 TAB DAILY 04/21 1115 AC 04/22 PO 1100 Ondansetron HCl 4 MG Q6P PRN 04/21 0915 AC 04/22 IV 1342 Oxycodone/ 2 TAB Q6P PRN 04/21 0915 AC 04/23 Acetaminophen PO 0153 Pantoprazole Sodium 40 MG DAILY 04/21 0215 AC 04/22 IV 1100 Potassium Chloride 40 MEQ ONCE ONE 04/22 0915 DC 04/22 PO 04/22 0916 1100 Thiamine HCl 100 MG DAILY 04/21 1115 AC 04/22 PO 1101 Findings Pertinent Lab/Judson Results: Laboratory Tests 04/23 0645 Chemistry Sodium Pending Potassium Pending Chloride Pending Carbon Dioxide Pending Anion Gap Pending BUN Pending Creatinine Pending Glucose Pending Calcium Pending Phosphorus Pending Magnesium Pending Total Bilirubin Pending AST Pending ALT Pending Albumin Pending Hematology CBC w Diff Pending WBC Pending RBC Pending Hgb Pending Hct Pending MCV Pending MCH Pending RDW Pending Plt Count Pending MPV Pending PUBS MCHC Pending
[2016-04-23 07:53] LABS: ABSOLUTE BASOPHIL COUNT 0 /CUMM (0.0-0.2); ABSOLUTE EOSINOPHIL COUNT 0.2 /CUMM (0.0-0.7); ABSOLUTE GRANULOCYTE CT 3.3 /CUMM (1.4-6.5); ABSOLUTE LYMPH COUNT 1.8 /CUMM (1.2-3.4); ABSOLUTE MONOCYTE COUNT 0.3 /CUMM (0.10-0.60); BASOPHIL % 0.9 % (0.0-2.0); GRANULOCYTE % 58.6 % (42.2-75.2); HEMATOCRIT 39.3 % (42-52); MEAN CORPUSCULAR HGB 29.8 PG (27.0-31.0); MEAN CORPUSCULAR HGB CONC 33.6 G/DL (33.0-37.0); MEAN CORPUSCULAR VOLUME 88.7 FL (80.0-94.0); MEAN PLATELET VOLUME 9.8 FL (7.4-10.4); PLATELET COUNT 186 /CUMM (130-400); RBC DISTRIBUTION WIDTH 15.3 % (11.5-14.5); RED BLOOD CELL CT 4.42 /CUMM (4.70-6.10); WHITE BLOOD CELL COUNT 5.7 /CUMM (4.8-10.8)
[2016-04-23] MEDS ORDERED: VITAMIN B-1100 MG PO (14:39)
[2016-04-23] MEDS ORDERED: FOLIC ACID1 M1 PO (14:39)
[2016-04-23] MEDS ORDERED: ONE DAILY MULT1 EAC2 PO (14:39)
[2016-04-23] MEDS ORDERED: CREON DR 24,001 EACH PO (14:40)
[2016-04-23] MEDS ORDERED: ATIVAN0.5 M1 PO (14:46)
--- NOTE | 2016-04-23 14:47 | Patient Discharge Instructions ---
Discharge Instructions General Discharge Information You were seen/treated for: #1 insulin overdose #2 hypoglycemia Watch for these problems: #1 lightheadedness, dizziness #2 shortness of breath, chest pain, palpitations Special Instructions: #1 please follow-up with your primary care provider within one week of discharge. #2 please follow up with her wood tank builder within a week of discharge. #3 please take your medications as prescribed. Acute Coronary Syndrome Inclusion Criteria At DC or during hospital stay patient has or had the following: ACS DIAGNOSIS No Discharge Core Measures Meds if any: Prescribed or Continued at Discharge Meds if any: NOT Prescribed or Continued at Discharge Congestive Heart Failure Inclusion Criteria At DC or during hospital stay patient has or had the following: CHF DIAGNOSIS No Discharge Core Measures Meds if any: Prescribed or Continued at Discharge Meds if any: NOT Prescribed or Continued at Discharge Cerebrovascular accident Inclusion Criteria At DC or during hospital stay patient has or had the following: CVA/TIA Diagnosis No Discharge Core Measures Meds if any: Prescribed or Continued at Discharge Meds if any: NOT Prescribed or Continued at Discharge Venous thromboembolism Inclusion Criteria VTE Diagnosis No VTE Type NONE VTE Confirmed by (Test) NONE Discharge Core Measures - Per Current guidelines, there needs to be overlap - treatment for the first 5 days of Warfarin therapy. - If discharged on Warfarin prior to 5 days of - overlap therapy, the patient will need to be - assessed for post discharge needs including - *Post discharge parental anticoagulation - *Warfarin and/or parental anticoagulation education - *Follow up date to check INR post discharge At least 5 days overlap therapy as Inpatient No Meds if any: Prescribed or Continued at Discharge Note: Overlap Therapy is Warfarin and Anticoagulant Meds if any: NOT Prescribed or Continued at Discharge
--- NOTE | 2016-04-23 14:53 | Transfer of Care Summary ---
Hospital Course Course Hospital Course: This is a 35-year-old male with past medical history significant for alcohol dependence with chronic pancreatitis, type 1 diabetes, chronic back pain, 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 Additionally, patient has alcohol dependence with last drink of 750 mL of hard liquor on 03/20 evening. In ED he was noted to have mild hypotension, lethargy, and hypoglycemia. Admitted to ICU for D10 and q1hr accuckeck. PLAN: Insulin overdose: Patient reportedly took 200 units of Levemir for overdose and suicide attempt (he has previous attempts of suicide in similar fashion). Unsure how much insulin he actually took. However, his insulin level was at 52 during admission. He has resumed eating regular diet and sugars are stabilizing. We encouraged high carbohydrate intake initially. In ICU he was on D10 at 125, eating high carb diet yet he had some episodes where his blood sugar dropped to 60s and required amp of D50. Prior to transfer out of ICU he had >3 blood sugars >100 OFF D10. Pt was switched from regular/ high carb diet to Consistent carb diet and he was started with just 10units of Levemir overnight for persistently elevated blood sugars. * Once his blood sugars stabilize we'll eventually plan for insulin sliding scale and his home dose of 20 units Levemir twice a day. * CC diet * Q4 accucheck--> change to decreased frequency as he stabilizes Alcohol abuse: He is off banana bag. Started multivitamin. Folic acid given. Last drink on night of admission. Drank 750ml hard liquor. Denies any hx of alcoholic siezures or DT. In ICU his CIWAs remained low(0-3). Of note Acetaminophen level less than 10, Serum alcohol 367, Negative acetone. CT-CHIEF MEDICAL TECHNOLOGIST shows extensive use of hydrocodone and oxycodone; no prescription of Benzos. * ciwa protocol * standing 2mg q6 ativan--> decrease an necessary * replete mag and K Hypokalemia: Pt came in with low K; on 04/22/16 measured at 3.4. Unsurprising as he OD'd on Insulin. Con't monitor and replete. * BEP * Monitor K and replete * Monitor Mag and replete Pt has supposed hx of: mood disorder, malingering, self-mutilation and cutting, personality disorder, and depression. * psych- Per psych he cannot leave without their oversight. * social work * F/U utox Hx PE:STABLE. He has hx of PE with IVC filter and on eliquis. He has not been prescribed for several months and he has not taken it. Upon speaking with pt he stated that if he had any access to Eliquis he would have attempted to overdose on it as well. Considering that it could be potentially fatal the risk-benefit strategy would suggest that pt remain off halfway PO anticoagulation as he more likely to harm himself with medication. Per CT in January 2016: IVC filter unchanged. He has been stable from a respiratory perspective. Hypotension: STABLEHad Bp in 80s/50s during ED admission. Pt was given fluids and started on diet; BP WNL when transferred out of ICU. Chronic pancreatitis: STABLE. Pt has chronic pancreatitis secondary to etoh/ multiple episodes of acute pancreatitis. Per CT done in Jan 2016:Chronic changes related to findings consistent with a chronic pancreatitis unchanged. No evidence for recurrent acute pancreatitis. No pseudocyst or peripancreatic mass. He does not complain of increase or change in quality of abdominal pain. Con't monitor. Amylase lipase within normal limits during this admission. Normal LFTs on admission. * Out pt f/u Renal cyst: STABLE: Per CT-Small minimally complex right renal cyst with small amount of peripheral calcification versus adjacent small stone' this has remained stable dating back to 2011 compatible with a benign finding. * Out pt f/u Assessment/Plan: see above
[2016-04-23] MEDS ORDERED: LEVEMIR100 UNIT/1 SC (14:55)
[2016-04-23] MEDS ORDERED: NOVOLOG100 UNIT/2 SC (14:55)
[2016-04-23] MEDS ORDERED: LEVEMIR FL100 UNIT/1 SC ×2 (15:24→15:28)
[2016-04-23] MEDS ORDERED: LANTUS SOL100 UNIT/1 SC (15:25)
[2016-04-23] MEDS ORDERED: NOVOLOG FL100 UNIT/1 SC (15:36)
--- NOTE | 2016-04-23 15:38 | Discharge Summary ---
Visit Information Visit Dates Admission Date: 04/21/16 Discharge Date: 04/23/16 Hospital Course Course Attending Physician: SALVADOR POLANCO MD Primary Care Physician: ANNY LOPEZ[place] [place]: Mr. Castellanos is a 35-year-old man with a past history of alcohol dependence, insulin -dependent diabetes mellitus, chronic pancreatitis (on Creon), pulmonary embolism status post IVC filter (not on any NOAC, d/c'ed for traumatic brain injury), previous suicidal attempts was evaluated for surreptitious use of insulin ( insulin overdose suicide attempt). At the time of admission, temperature 98.1, pulse rate 72, respiratory rate 16, blood pressure 115/67, 97% on room air. Lab findings indicated WBC 7.5, hemoglobin 14.8, platelets 220, normal sodium-136, potassium 4.4, normal renal function-BUN 14, serum creatinine 0.8. Blood glucose 47. Lactic acid 3.0 ( improved to 1.7), AST, ALT-46, 47, alkaline phosphatase 69. Lipase-28. He was admitted to critical care unit, and was started on D10. After the blood sugars stabilized, he was started on Levemir and NovoLog. Differential diagnosis: #1 insulin overdose #2 alcohol abuse #3 electrolyte imbalance #4 Suicidal attempt Below is the problem list and plan: #1 insulin overdose- Reportedly took 200 units of Levemir for overdose and suicide attempt (he has previous attempts of suicide in similar fashion). However, his insulin level was at 52 during admission. While in the ICU he was on D10, which was discontinued after blood sugars stabilized. He was started on long acting insulin, after he confirming adequated dieatary intake and transfered to [facility] Medicine floor for monitoring. Blood sugar levels were well controlled. No episodes of hypoglycemia were observed, during the stay in the hospital. Dr Rojas, Welder Apprentice was contacted for advice. #2 alcohol abuse-Monitored closely and treated w/ benzodiazepines-ativan taper as per hospital recommended [facility] protocol. Also treated w/ multivitamin, thiamine and folic acid. #3 chronic pain- treated w/ opiates. Well controlled during the stay in the hospital. #4 chronic pancreatitis-patient was restarted on pancreatic enzymes, Creon with no complications. As per the pt, he is not allergic to Creon, and unsure of the reason for the medical documentation about allergy to zenpep. Discussed w/ the patient and updated the allergy list. No further complications arose during the stay, and there was no need for imaging. #5 electrolyte abnormalities-Likely due to vomiting, and inadequate dietary intake or insulin use. Repleted accordingly. #6 PE- s/p IVC filter placement. Not currently on Eliquis. It was ascertained that the the risks for overdosing or injury were higher w/ more access to an anticoagulant. Not continued on Eliquis, as the pt was not taking the medication for a few months. #7 Mental health- hisotry of mood disorder, malingering, self-mutilation and cutting, personality disorder, and depression. Psychiatry was consulted for advice. As per Pshychiatry, he was to be discharged to Inpatient Pscyhiatry with an advice to completing the ativan taper. He was to have frequent accucheks, to make sure that blood sugars were in control while in the stay at the psychiatry dept. Allergies: Coded Allergies: adhesive tape (UNKNOWN REACTION TO SURGICAL TAPE 05/13/15) tramadol (Mild, DIZZY 05/13/15) ketorolac (From TORADOL) (MUSCLE CRAMPING 01/12/16) Disposition Summary Disposition Principal Diagnosis: Inuslin overdose Additional Diagnosis: suicidal attempt Discharge Disposition: Inpatient Psychiatry Discharge Instructions General Discharge Information Code Status: Full Code Patient's Diet: as tolerated Patient's Activity: as tolerated Follow-Up Instructions/Appts: #1 please follow-up with your primary care provider within one week of discharge. #2 please follow up with her heel trimmer within a week of discharge. #3 please take your medications as prescribed. Medications at Discharge Discharge Medications: Stop taking the following medications: Insulin Aspart, Recombinant (Novolog) 100 U/ML ANAIS Inject into fatty tissue BEFORE MEALS AND AT BEDTIME Qty = 14 Insulin Detemir (Levemir Flextouch) 100 UNIT/ML (3 ML) INSULN.PEN Inject into fatty tissue TWICE DAILY Qty = 15 Ondansetron (Zofran Odt) 4 MG TAB.RAPDIS SUBLINGUAL THREE TIMES DAILY Qty = 20 Continue taking these medications: FLUOXETINE HCL (Fluoxetine HCl) 20 MG CAP 1 Tablet ORAL DAILY Qty = 14 Comments: Last Taken: 04/29/15 Time: 0900 Esomeprazole (Nexium) 40 MG CAPSULE.DR 1 Capsule ORAL DAILY Qty = 30 Comments: Last Taken: 04/23/16 Time: 0600 am Ondansetron HCl (Zofran) 4 MG TABLET 1 Tablet ORAL Every 6-8 Hours as Needed as needed for NAUSEA Qty = 10 Comments: Last Taken: not given Time: Oxycodone HCl/Acetaminophen (Percocet 5-325 MG Tablet) 5 MG-325 MG TABLET 1 Tablet ORAL TWICE DAILY as needed for PAIN Qty = 8 Comments: Last Taken: 04/23/16 Time: 1350 Lipase/Protease/Amylase (Creon 24,000 Units Capsule) 24-76-120K CAPSULE. 2 Tablet ORAL THREE TIMES DAILY Qty = 240 Comments: Last Taken: 04/23/16 Time: 1238 This prescription has been renewed Start taking the following new medications: Folic Acid (Folic Acid) 1 MG TABLET 1 Milligram ORAL DAILY Days = 30 No Refills Comments: Last Taken: 04/23/16 Time: 1019 Thiamine HCl (Vitamin B-1) 100 MG TABLET 100 Milligram ORAL DAILY Days = 30 No Refills Comments: Last Taken:04/23/16 Time:1020 Multivitamin (One Daily Multivitamin) 1 EACH TABLET 1 Tablet ORAL DAILY Days = 30 No Refills Comments: Last Taken: 04/23/16 Time:1020 Lorazepam (Ativan) 0.5 MG TABLET 0 ORAL SEE INSTRUCTIONS as needed for alcohol withdrawl Qty = 18 No Refills Instructions: please take- 2 tabs(1mg) every 6hrs on 04/23 1 tab(0.5mg) every 6hrs on 04/24 1 tab(0.5mg) every 8hrs on 04/25 1 tab(0.5mg) every 12 hrs on 04/26 1 tab(0.5mg) every 24 hrs on 04/27. Comments: Last Taken: 04/23/16 Time: 1212 Insulin Detemir (Levemir Flextouch) 100 UNIT/ML (3 ML) INSULN.PEN 8 Units Inject into fatty tissue TWICE DAILY Days = 30 No Refills Comments: Last Taken: 04/23/16 Time: 1021 Insulin Aspart, Recombinant (Novolog Flexpen) 100 UNIT/ML INSULN.PEN 0 Inject into fatty tissue BEFORE MEALS AND AT BEDTIME Days = 30 No Refills Instructions: PLEASE TAKE bLOOD SUGAR-INSULIN DOSE 80-150 MG/DL-3 units 151-200 MG/DL-4 units 201-250 MG/DL-5 units 251-300 MG/DL-6 units 301-350 MG/DL-7 units 351-400 MG/DL-8 units >400 MG/DL- 8 units. CALL MD BED TIME 80-150 MG/DL-0 UNITS 151-200 MG/DL-0 UNITS 201-250 mg/dl-0 UNITS 251-300 mg/dl-2 UNITS 301-350 mg/dl-3 UNITS 351-400 mg/dl-4 UNITS >400 mg/dl-4 UNITS. cALL m.lei Comments: Last Taken: 04/23/16 Time: 1200 Nicotine Polacrilex (Nicorette) 2 MG GUM 1 Gum ORAL DAILY Days = 7 No Refills Copies To: ANNY LOPEZ,CAROL Attending MD Review Statement Documenting Attending: SALVADOR POLANCO MD Documenting Attending: SALVADOR POLANCO MD
[2016-04-23] MEDS ORDERED: NICORETTE2 M2 PO (15:50)
== END 2016-04-23 17:30 | DRG 812 ==
LOC: ENRESERVDT → ENRESERVTM → ERH 20:33 → ERHI 22:26 → CRI 04-21 00:51 → CMPBEDREQ 04-21 01:05 → ERHI 04-21 06:10 → CRI 04-21 07:34 → ERHI 04-21 07:42 → CRI 04-21 09:20 → 2NB 04-22 18:14
PROVIDERS: Emergency Medicine; Student in an Organized Health Care Education/Training Program; ADMIT Student in an Organized Health Care Education/Training Program
DX: T38.3X2A Poisoning by insulin and oral hypoglycemic [antidiabetic] drugs, intentional self-harm, initial encounter (principal); K86.1 Other chronic pancreatitis; F17.210 Nicotine dependence, cigarettes, uncomplicated; F32.9 Major depressive disorder, single episode, unspecified; E10.649 Type 1 diabetes mellitus with hypoglycemia without coma; F10.239 Alcohol dependence with withdrawal, unspecified; Z79.4 Long term (current) use of insulin; E87.6 Hypokalemia; F60.9 Personality disorder, unspecified; Z86.711 Personal history of pulmonary embolism
CPT/HCPCS: 2NBSP; CCU; 36415; 80307; 82436; 86337; 93005; 93010; 99232; 99233; G0480; J0131; J1650; J2405; J3490; J7060

== ENCOUNTER 2016-04-23 15:32 | Inpatient (IN) | payer OTHER ==
[~2016-04-23] VITALS: Ht 174 cm; Wt 69.9 kg
[~2016-04-23 15:32] MED LIST changes: +ATIVAN0.5 M1 PO; +FOLIC ACID1 M1 PO; +LANTUS SOL100 UNIT/1 SC; +LEVEMIR100 UNIT/1 SC; +NOVOLOG100 UNIT/2 SC; +ONE DAILY MULT1 EAC2 PO; +VITAMIN B-1100 MG PO
[2016-04-23] MEDS ORDERED: NOVOLOG FL100 UNIT/1 SC (15:36)
[2016-04-23] MEDS ORDERED: NICORETTE2 M2 PO (15:50)
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
[2016-04-23 17:54] VITALS: BP 112/65
--- NOTE | 2016-04-23 18:25 | NUR ---
RECEIVED REPORT FROM 2NB DESI SOLIZ. PT BS CHECKED AT 4PM ON 2NB REPORTED 138. PT ARRIVED ON CPS 1734 AND IT WAS VERIFIED WITH PT AND DIETARY THAT PT HAD ALREADY EATEN DINNER PRIOR TO ARRIVAL ON UNIT.
--- NOTE | 2016-04-23 18:41 | NUR ---
SPOKE WITH DESI REGARDING INSULIN COVERAGE AND CREON SHOWING ON EMAR NOT ADMINISTERED. NEITHER GIVEN AT DINNER MEALTIME ON 2NB. BS CHECKED ON CPS 248. PER DR STUBBS PT TO HAVE 4 UNITS NOVOLOG INSULIN AND CREON. DR STEPHENS AWARE THAT PT HAS ALREADY EATEN DINNER.
[2016-04-23 19:45] VITALS: BP 104/66
--- NOTE | 2016-04-23 21:51 | NUR ---
Pt is out in the community mood is stable affect is full range, compliant and cooperative with the staff. Pt vital signs are stable appetite is good blood sugar is 201 at 2130. Will continue to monitor the pt overnight.
--- NOTE | 2016-04-23 22:06 | NUR ---
PT ADMITTED TO CPS FOLLOWING SUICIDE ATTEMPT BY INSULIN OVERDOSE. PT WITH PAST HX OF SUICIDE ATTEMPT BY SAME MECHANISM APPROX. 1 YEAR AGO AND WAS HOSPITALIZED ON CPS AT THAT TIME. PT HAS HX OF CUTTING, "LIKE 10 YEARS AGO." PT ALSO BEING TREATED FOR ALCOHOL WITHDRAWAL AND IS ON ATIVAN TAPER. NO SIGNS OR SYMPTOMS OF WITHDRAWAL NOTED/REPORTED. PT PRESENTED DYSTHYMIC. DEPRESSION REPORTED "3" ON SCALE OF 1-10. AFFECT FULL RANGE. PT ENGAGEABLE, VERBAL, PLEASANT, AND COOPERATIVE. THOUGHT PROCESS CLEAR AND LOGICAL. PT DENIED ANXIETY, PARANOID THOUGHTS, AND ALL HALLUCINATIONS. DURING INTERVIEW, PT DENIED SI/THOUGHTS OF SELF HARM. HE AGREED TO TELL STAFF IF/WHEN THOUGHTS RETURN. VSS. PAIN FROM PANCREATITIS "5." NO OTHER SOMATIC C/O. LOOSE BM REPORTED WHILE PT ON MEDICAL FLOOR HAS SIGNIFICANTLY IMPROVED PER PT.
[2016-04-24 00:14] VITALS: BP 109/70
--- NOTE | 2016-04-24 04:24 | NUR ---
SLEPT WELL, NO COMPLAINTS
--- NOTE | 2016-04-24 04:24 | NUR ---
SLEPT WELL, NO COMPLAINTS OFFERED.
[2016-04-24 07:41] VITALS: BP 114/73
[2016-04-24 12:12] VITALS: BP 107/72
--- NOTE | 2016-04-24 12:36 | PN- Diabetes ---
Assessment/Plan Assessment: Patient was admitted after he intentionally gave himself Levemir 200 units on . Now he in [facility]. He was put on Levemir 8 units twice a day, Novolog coverage before meals and Novolog coverage at bedtime. His FSGs were 155, 208, 138, 248, 201, 336 and 158. Plan: continue the current insulin regimen for now; monitor FSGs; will follow. Subjective Subjective: His glucose level has been up and down ? due to diet. Objective Last 24 Hrs of Vital Signs/I&O Vital Signs Date Time Temp Pulse Resp B/P Pulse O2 O2 Flow FiO2 Ox Delivery Rate 04/24 1212 72 107/72 04/24 0741 97.6 84 114/73 04/24 0014 89 109/70 04/23 1945 96.1 62 104/66 02/ 1754 95.6 63 112/65 Intake & Output 04/24 1600 04/24 0800 04/24 0000 Intake Total Output Total Balance Patient 154 lb Weight
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
--- NOTE | 2016-04-24 14:22 | NUR ---
Pt was visible in the milieu today. His goal today was to "relax" in which pt seemed to have done. He did attend groups, and had positive interactions with both peers and staff alike. Pt has been cooperative with staff direction. No further issues. Pt denies thoughts of hurting self when asked.
[2016-04-24 15:40] VITALS: BP 111/65
--- NOTE | 2016-04-24 18:27 | PN- Att Addend ---
Attending Addendum Attending Brief Note Patient seen and examined, feels ok., Denies any current complaints. No aches, pains. Vital Signs Date Time Temp Pulse Resp B/P Pulse O2 O2 Flow FiO2 Ox Delivery Rate 04/24 1540 70 111/65 04/24 1212 72 107/72 04/24 0741 97.6 84 114/73 04/24 0014 89 109/70 04/23 1945 96.1 62 104/66 on exam; aox3, nad. cv; s1,s2, rrr. resp; clear abd; soft, nt, bs+ ext; no edema, no labs. A/P: 35M PMH Type 1 DM, history of PE s/p IVC filter not on anti-coagulation, chronic pancreatitis, anxiety, depression, multiple suicide attempts with insulin overdoses, who was admitted to med floor with suicide with insulin overdose and hypoglycemia. Now transferred to [facility] for further psych mx. Insulin is being managed by Dr. Bell and blood sugars are stable. Psych Mx, will deefr to psych. Atvan taper per psych. COntinue MVI/Thiamine and folate.
[2016-04-24 19:15] VITALS: BP 111/62
--- NOTE | 2016-04-24 20:13 | NUR ---
PT IS STABLE WITH BRIGHT FULL RANGE OF AFFECT. CURRENTLY WANDERING THE UNIT AND INTERMITTENTLY WATCHING A MOVIE WITH PEERS. APPROPRIATE TO THE UNIT, POLITE AND COMPLIANT. ENGAGED WITH STAFF AND EXPLAINED HOW HIS GIRLFRIEND HAS TATTOOS AND HOW HE "REALLY LOVES TATTOOS". VS ARE STABLE AND PT DENIES ANY SI/HI TO THIS MHW.
--- NOTE | 2016-04-24 23:02 | NUR ---
2300 REPORTED TO [facility] BS 439.
[2016-04-25 07:49] VITALS: BP 102/60
[2016-04-25 12:11] VITALS: BP 99/68
--- NOTE | 2016-04-25 12:47 | NUR ---
CONFIRMED WITH PATIENT THAT HE DOES NOT HAVE ALLERGY TO PANCRELIPASE. SPOKE WITH PHARMACIST MILAGROS WELL.
--- NOTE | 2016-04-25 13:12 | NUR ---
PT IS COMPLIANT AND COOPERATIVE. PT IS OUT IN COMMUNITY INTERACTING WELL WITH STAFF AND PEERS. PT IS ACTIVE IN GROUPS. PT MOOD IS STABLE WTIH A FULL RANGE AFFECT. PT DENIES SI.
--- NOTE | 2016-04-25 13:39 | PN- Diabetes ---
Assessment/Plan Assessment: Patient was admitted after he intentionally gave himself Levemir 200 units on . Now he in [facility]. He was put on Levemir 8 units twice a day, Novolog coverage before meals and Novolog coverage at bedtime. His FSGs were 336, 158, 372, 439, 273 and 212. Plan: 1. increase Levemir to 10 units twice a day; 2. adjust Novolog coverage before meals--detail see the inpatient DM order; 3. continue the current Novolog coverage at bedtime; 4. monitor FSGs. will follow. Inpatient Diabetes Orders Before Each Meal: Bolus Insulin: Novolog < 80 mg/dl: no coverage 80-100 mg/dl: 5 units 101-120 mg/dl: 5 units 121-150 mg/dl: 5 units 151-200 mg/dl: 6 units 201-250 mg/dl: 7 units 251-300 mg/dl: 8 units 301-350 mg/dl: 9 units 351-400 mg/dl: 10 units > 400 mg/dl: 10 units Subjective Subjective: His glucose level has been controlled. Objective Last 24 Hrs of Vital Signs/I&O Vital Signs Date Time Temp Pulse Resp B/P Pulse O2 O2 Flow FiO2 Ox Delivery Rate 04/25 1211 77 99/68 04/25 0749 96.6 76 102/60 04/24 1915 96.9 71 111/62 0204 1540 70 111/65
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
[2016-04-25 15:48] VITALS: BP 115/64
[2016-04-25 19:46] VITALS: BP 124/75
--- NOTE | 2016-04-25 21:49 | NUR ---
PT IS CALM, COOPERATIVE WITH STAFF AND PEERS, AND COMPLIANT WITH UNIT RULES. PT IS IN MILIEU OFTEN, INTERACTING WELL WITH PEERS. MOOD IS STABLE, AFFECT APPEARS FULL RANGE, COMMUNICATION IS NORMAL, AND APPETITE IS NORMAL. PT DENIES SI AT THIS TIME. PT GLUCOSE LEVELS AT 1630 - 382, AT 2130 - 343.
--- NOTE | 2016-04-26 07:05 | NUR ---
PATIENT AWAKE AT 0300, GOT PRN PERCOCET, OTHERWISE SLEPT ALL NIGHT.
[2016-04-26 07:58] VITALS: BP 109/71
--- NOTE | 2016-04-26 11:55 | CP SOUTH PROGRESS NOTE PSYCH ---
Psych (Inpt) Progress Note Progress Note Progress Note: [I discussed this patient's progress to date, current mental status, treatment process in the context of the treatment plan, and discharge planning with staff/ team in the daily morning inpatient team meeting. I also met with the patient myself in individual session.] S: "I feel good" O: Current Medications Sig/Alejandrina Start time Last Medication Dose Route Stop Time Status Admin Acetaminophen 650 MG Q6P PRN 04/23 1630 AC PO Fluoxetine HCl 20 MG DAILY 04/24 1000 AC 04/26 PO 0825 Folic Acid 1 MG DAILY 04/24 1000 AC 04/26 PO 0824 Insulin Aspart See Dose AC & AT BEDTIME 04/23 1700 AC 04/26 Insts (1) SC 0825 Insulin Detemir 10 UNITS BID 04/25 2200 AC 04/26 SC 1000 Insulin Detemir 8 UNITS BID 04/23 2200 DC 04/25 SC 0843 Lipase/Protease/ 1 CAP WITH MEALS 04/23 1700 AC 04/26 Amylase PO 0825 Lorazepam 0.5 MG DAILY 04/28 1000 AC PO 04/28 1001 Lorazepam 0.5 MG BID 04/27 1000 AC PO 04/27 2201 Lorazepam 0.5 MG TID 04/26 1000 AC 04/26 PO 04/26 2201 0825 Lorazepam 0.5 MG 4 TIMES/DAY 04/25 1400 DC 04/25 PO 04/25 2201 2126 Lorazepam 0.5 MG Q8P PRN 04/25 1230 AC PO 05/02 1229 Lorazepam 1 MG Q6 04/23 1800 DC 04/25 PO 0705 Melatonin 5 MG AT BEDTIME 04/23 2200 AC 04/25 PO 2126 Multivitamins 1 TAB DAILY 04/24 1000 AC 04/26 PO 0825 Nicotine 4 MG Q2 HRS NEEDED PRN 04/24 1315 AC 04/26 PO 1113 Omeprazole 40 MG DAILY AC 04/24 0700 AC 04/26 PO 0605 Ondansetron HCl 4 MG Q6P PRN 04/23 1615 AC PO Oxycodone/ 2 TAB Q6-PRN PRN 04/23 1630 AC 04/26 Acetaminophen PO 0926 Thiamine HCl 100 MG DAILY 04/24 1000 AC 04/26 PO 0825 Dose Instructions: (1)Insulin Aspart: PER SLIDING SCALE Vital Signs Date Time Temp Pulse Resp B/P Pulse O2 O2 Flow FiO2 Ox Delivery Rate 04/26 0758 98.2 73 109/71 04/25 1946 96.3 90 124/75 04/25 1548 72 115/64 04/25 1211 77 99/68 Laboratory Tests 04/26 0805 Chemistry TSH (0.270 - 4.200 uIU/mL) 2.200 Depression: 0/10 (10 worst) Anxiety: 3/10 (10 worst) -regarding getting letter for work to explain his absence Mood: "optimistic" Denies SI/HI, AH/VH, PI. "A little" hopelessness and helplessness. Clear speech. Goal-directed thoughts. Eye contact WNL. Appears alert and oriented. A: Client presents today well groomed in casual clothing. 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 Client is homeless and has his GED. He has a supportive girlfriend. Client has a history of pancreatitis and insulin dependent diabetes. On 04/20/16 client self- presented to ED after an intentional OD on insulin, while under the influence of alcohol. Client was hospitalized on the medical unit and came to inpatient psychiatry on 04/24/16. Client has a history of using insuling in suicide attempts , however, he reports previously he used to OD on insulin while in the hospital ED as a means to get admitted. He feels this was his "first true" suicide attempt and states he over-used insulin home and then "just got on the bus", not intending to come to or seek treatment. That being said, client is grateful that he ultimately sought help and is alive today. He reports he has a history of being put on psychiatric medications in the hospital which he stops at discharge. Client presents with past symptoms of major depressive disorder and alcohol use disorder. Client was restarted on prozac over the weekend and denies any side effects of complications. He is in an ativan taper and denies any problems with the taper. He is motivated to be off ativan. Client is utilizing nicotine gum. He states, "I am not a big fan of medication." Prior to this relapse client had 5-6 months without alcohol use and reports, "I just got comfortable and drank." He denies any cravings for alcohol or alcohol withdrawal signs and symptoms today. Client has no complaints regarding sleep, energy, or appetite. He denies any suicidal ideation, intent, or plan today and reports if he felt suicidal after discharge he would reach out for help. He is hopeful to discharge to [facility] after hospitalization. Client understands the risks, benefits, and side effects of his current medication regimen and is agreeable to continue taking them. P: 1. Continue medications as written 2. Continue to provide psychosocial support
[2016-04-26 12:27] VITALS: BP 110/67
--- NOTE | 2016-04-26 13:58 | NUR ---
going to most groups. has been cooperative with care. Mood is stable, full range of affect. Denied thoughts of self harm when asked.
--- NOTE | 2016-04-26 14:52 | SOCIAL WORKER PROG NOTE PSYCH ---
Social Work Progress Note Progress Note Introduced myself to Sotero and informed him that Liz Ohara [facility] will be meeting with him to get his social history done. Sotero asked that a letter be faxed to his employer. He is currently working at [employer] in [place]. Signed a release for them. I asked if he had a referral done to [facility] yet? He said he believed that someone was supposed to meet with him from [facility] today. I told him I would follow up and see what was happening. He has been at the [place] program several times. Called Shane at the [place] [facility] and left a message.
[2016-04-26 15:52] VITALS: BP 106/58
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
--- NOTE | 2016-04-26 16:41 | SOCIAL WORKER PROG NOTE PSYCH ---
Social Work Progress Note Progress Note Met with Sotero to complete his social history today. He denied having any SI/HI, no psychosis. He stated he has been sober (no drugs or ETOH) for 5-6 months, relapsed with alcohol in 2015 - around . He stated he thought he was doing well and could have "just a couple beers." His drinking escalated to 1/5th of everyday (after work). He has been working full-time at [employer] in [place] for the past 8 months. He stated he likes his job and is doing well there. He was able to identify when he drinks, things get worse - he becomes suicidal and makes an attempt. He lost his apartment - was living with a friend, then took over the rent ($900 per month) - was unable to pay. He stated he has a new girlfriend, Ximena who he plans to get an apartment with. He is hoping to go to [facility] in [place], and was excited to hear that Lily Brock LCSW arranged for Shane to interview him tomorrow 04/27 on [facility] for a bed. Sotero stated after his last admission to [facility] in 2015 - he stayed sober for the longest period of time in his adult life. He went to [facility], then to a sober house - [facility] in [place], went to [facility] for individual therapy - apparently he did not continue medication. Sotero stated "I don't like medication." He did not attend AA meetings, and no sponsor. Sotero is willing to return to [facility] in [place] for aftercare, he signed a release for this program. Sotero stated he wants to discharge as soon as possible.
[2016-04-26 19:35] VITALS: BP 117/61
--- NOTE | 2016-04-26 22:19 | NUR ---
Pt is out in the community mood is stable no behavioral issues noted affect is in full range. Compliant and cooperative with the staff. Pt vital signs are stable. Appetite is good. Will continue to monitor the pt overnight.
[2016-04-27 07:49] VITALS: BP 108/61
--- NOTE | 2016-04-27 08:50 | CP SOUTH PROGRESS NOTE PSYCH ---
Psych (Inpt) Progress Note Progress Note Progress Note: [I discussed this patient's progress to date, current mental status, treatment process in the context of the treatment plan, and discharge planning with staff/ team in the daily morning inpatient team meeting. I also met with the patient myself in individual session.] S: "I am feeling good, I am not suicidal." O: Current Medications Sig/Alejandrina Start time Last Medication Dose Route Stop Time Status Admin Acetaminophen 650 MG Q6P PRN 04/23 1630 AC PO Fluoxetine HCl 20 MG DAILY 04/24 1000 AC 04/26 PO 0825 Folic Acid 1 MG DAILY 04/24 1000 AC 04/26 PO 0824 Insulin Aspart See Dose AC & AT BEDTIME 04/23 1700 AC 04/26 Insts (1) SC 2155 Insulin Detemir 10 UNITS BID 04/25 2200 AC 04/26 SC 2159 Lipase/Protease/ 1 CAP WITH MEALS 04/23 1700 AC 04/26 Amylase PO 1627 Lorazepam 0.5 MG DAILY 04/28 1000 AC PO 04/28 1001 Lorazepam 0.5 MG BID 04/27 1000 AC PO 04/27 2201 Lorazepam 0.5 MG TID 04/26 1000 DC / PO 04/26 2201 2203 Lorazepam 0.5 MG Q8P PRN 04/25 1230 AC PO 05/02 1229 Melatonin 5 MG AT BEDTIME 04/23 2200 AC 04/26 PO 2203 Multivitamins 1 TAB DAILY 04/24 1000 AC 04/26 PO 0825 Nicotine 4 MG Q2 HRS NEEDED PRN 04/24 1315 AC 04/26 PO 1818 Omeprazole 40 MG DAILY AC 04/24 0700 AC 04/27 PO 0627 Ondansetron HCl 4 MG Q6P PRN 04/23 1615 AC PO Oxycodone/ 2 TAB Q6-PRN PRN 04/23 1630 AC 04/27 Acetaminophen PO 0629 Thiamine HCl 100 MG DAILY 04/24 1000 AC 04/26 PO 0825 Dose Instructions: (1)Insulin Aspart: PER SLIDING SCALE Vital Signs Date Time Temp Pulse Resp B/P Pulse O2 O2 Flow FiO2 Ox Delivery Rate 04/27 0749 96.9 77 108/61 / 1935 97.0 81 117/61 /06 1552 67 106/58 02/ 1227 67 110/67 Depression: 0/10 (10 worst) Anxiety: 3/10 (10 worst) Denies SI/HI, AH/VH, PI. Clear speech. Goal-directed thoughts. Eye contact WNL. Alert and oriented x3 ( states today is the 6th when it is the 7th). A: Client presents today well groomed, bearded, in casual clothing. He reports he is feeling "good" today. He reports his sleep was "a little restless" because he is anticipating a meeting with [facility] today and he is hopeful they will accept him. He reports he has a decent appetite. Client reports he has intermittent stomach pain secondary to chronic pancreatitis which is relieved by oxycodone. He hopes to go to [facility] in [place] for pain management. 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 Client denies alcohol cravings. He reports he feels safe in the hospital and he denies suicidal ideation, intent, or plan. Client denies any problems or side effects from his psychiatric medications. Client is tolerating ativan taper well. He continues to utilize nicotine gum. He reports he intends to stay on medications after hospitalization, which is not something he has typically done in the past. This consumer loan underwriter spent much of the session discussing the severity of client's suicide attempt and stressing the importance of remaining sober and adherent to treatment recommendations. Client verbalizes understanding. Discussed prozac increase for additional antidepressant support. Client agreeable. Client also requests bengay for some mild elbow pain. Client presents with past symptoms of major depressive disorder and alcohol use disorder that are responding well to inpatient treatment. Reviewed s/s of bipolar disorder, client denies any history of bipolar disorder or current symptoms. Continue to rule out bipolar process. Client understands the risks, benefits, and side effects of his current medication regimen and is agreeable to continue taking them. P: 1. Increase prozac to 40mg daily, continue ativan taper 2. Continue to provide psychosocial support 3. Analgesic balm ordered, allergy rechecker alert from [facility], discussed with Moody at inpatient pharmacy, OK to prescribe
[2016-04-27 12:26] VITALS: BP 107/58
--- NOTE | 2016-04-27 14:18 | NUR ---
PT WAS VISIBLE IN THE [place] TODAY. HIS GOAL WAS TO "STAY POSITIVE" AND SEEMS TO BE REACHING HIS GOAL. IN THE [place] PT HAS BEEN ENGAGING WITH HIS PEERS, AND HAVING ACTIVE PARTICIPATION IN GROUPS. HE HAS BEEN COOPERATIVE WITH STAFF DIRECTION, DENIES SELF HARM WHEN ASKED.
[2016-04-27 16:00] VITALS: BP 118/62
--- NOTE | 2016-04-27 17:17 | SOCIAL WORKER PROG NOTE PSYCH ---
Social Work Progress Note Progress Note Talked to Shane from [facility]. He shared that he would need to cancel the 1pm meeting with [facility] and reschedule for tomorrow at 11:30am. Lissette (Director) got on the phone and shared her concerns about [facility], stating in the past he has drank there, he tries to get around the rules, and his stay has been too long in the past. She wants him to have a secure discharge plan. I talked to [facility] about the conversation I had with Lissette. He said that his plan is to get his taxes done and get money back to get an apartment. I asked how much he would need for an apt? He said he was thinking 600.00 for rent and 600.00 for security. I asked how much he was thinking he was getting back from taxes? He said he didn't know, but was hoping for around 800.00. He said he made around 7,000 this year. He also shared that he planned to live with his new girlfriend and she would be splitting it with him. I asked if he had a plan B, in case this plan didn't work out? He said no. I shared that the crisis and respite staff had concerns about his length of stay. He was getting frustrated with this information and at one point was using profanity and stated he would just get a hotel and start drinking again and that they could "go fuck themselves". We talked about his drinking and what he planned to do for treatment after leaving here. He said that he planned to go to crisis and respite and return to work in the next couple of weeks. I asked if he was willing to do IOP? He said no. AA? He said no. He said he wasn't committed to going for treatment and would only do it, if crisis and respite required it. I asked where he was going to get his medications? He stated that he didn't plan to stay on medication and would most likely go off of them after leaving crisis and respite. I asked him to tell me about that and he said "I don't need medication". Tried to talk to him about his goal of getting an apartment and how that was tied into him making money and keeping his job, so it was important for him to maintain his sobriety and health. It is clear that he is not motivated at this time. He did offer to sign a release for the [facility] [place] as a option from here. He was expecting his worker from [facility] this afternoon to come to the unit and bring his W-2's. It's not clear how he is going to get his taxes done. Offered to have his new girlfriend in for a meeting. He refused, stating she can't get here for that due to transportation. Asked if there was anyone else involved and supportive? He said no. His recent breakup was a trigger for his suicide attempt. Stated he felt desperate and had no where to go, he was out on the street. He reported that he was in this relationship for about 7 months. This new girlfriend is someone he knows through work.
--- NOTE | 2016-04-27 17:17 | SOCIAL WORKER TX PLAN PSYCH ---
Treatment Plan - Please Document: - Evidence that there is ongoing collaboration between - the patient and the interdisciplinary team, - including the patient's active participation and - responsibility for engaging in the treatment regimen, - and that the treatment plan is individualized and - relevant to the patient's conditions. - Treatment plan should reflect documentation indicating - that all active therapeutic efforts are included. Strengths/Capabilities: I work hard, I am easy going Physical Limitations (Interventions): Patient has several serious medical issues. Patient Identified Trmt Goals: "I need to keep my job" Discharge Plan: [facility] Problem/Goals #1 Problem #1: self-harm behaviors Goal (Short Term): patient will explore medications to help with symptoms Goal (Note Keeper): patient will be compliant with medication Interventions: patient will be offered medication management with the AFFIRMATIVE ACTION OFFICER, groups on symptom management, coping skills, relaxation, art therapy, focus group, goals group, self-esteem and accupuncture. Boat Cleaner will use MT to discuss goals and how he can continue to work towards those if he stays in treatment. Boat Cleaner will coordinate aftercare. Problem/Goals #2 Problem #2: alcohol dependence/abuse Goal (Short Term): patient will identify 2 triggers to relapse Goal (Note Keeper): patient will identify a relapse prevention plan Interventions: patient will be offered medications to assist with not using alcohol, patient will be offered relapse prevention groups and AA on unit. Boat Cleaner will connect the benefit of sobriety to maintaining his employment. Boat Cleaner will assist in setting up aftercare. DSM5/PS Stressors/Medical Prob Diagnosis' (DSM 5, Stressors, Medical): F 33.2 major depressive disorder, severe, recurrent F 10.20 alcohol use disorder, severe, recurrent Current GAF: 21 Treatment Team - Responsibilities of members of the treatment team include: - Medication Management- MD or AFFIRMATIVE ACTION OFFICER - Medication Administration and Monitoring- Nurse - Group Therapy- Occupational Therapist - 1:1 Therapy,Disch Planning,family involvement-Boat Cleaner
[2016-04-27 20:22] VITALS: BP 111/60
--- NOTE | 2016-04-28 04:59 | NUR ---
PT APPEARED TO SLEEP THRU THE NIGHT.
[2016-04-28 07:53] VITALS: BP 118/69
--- NOTE | 2016-04-28 09:31 | CP SOUTH PROGRESS NOTE PSYCH ---
See Addendum Psych (Inpt) Progress Note Progress Note Progress Note: [I discussed this patient's progress to date, current mental status, treatment process in the context of the treatment plan, and discharge planning with staff/ team in the daily morning inpatient team meeting. I also met with the patient myself in individual session.] S: "I am optimistic" O: Current Medications Sig/Alejandrina Start time Last Medication Dose Route Stop Time Status Admin Acetaminophen 650 MG Q6P PRN 04/23 1630 AC PO Fluoxetine HCl 40 MG 0800 04/28 0800 AC 04/28 PO 0807 Fluoxetine HCl 20 MG ONE TIME ONE 04/27 1100 DC 04/27 PO 04/27 1101 1201 Fluoxetine HCl 20 MG DAILY 04/24 1000 DC 04/27 PO 0931 Folic Acid 1 MG DAILY 04/24 1000 AC 04/28 PO 0807 Insulin Aspart See Dose AC & AT BEDTIME 04/23 1700 AC 04/28 Insts (1) SC 0809 Insulin Detemir 10 UNITS BID 04/25 2200 AC 04/28 SC 0919 Lipase/Protease/ 1 CAP WITH MEALS 04/23 1700 AC 04/28 Amylase PO 0807 Lorazepam 0.5 MG DAILY 04/28 1000 AC 04/28 PO 04/28 1001 0808 Lorazepam 0.5 MG BID 04/27 1000 DC 04/27 PO 04/27 2201 2211 Lorazepam 0.5 MG Q8P PRN 04/25 1230 AC PO 05/02 1229 Melatonin 5 MG AT BEDTIME 04/23 2200 AC 04/27 PO 2211 Methyl Salicylate 1 ARYAN BID PRN 04/27 1300 AC 04/27 TOP 1441 Multivitamins 1 TAB DAILY 04/24 1000 AC 04/28 PO 0807 Nicotine 4 MG Q2 HRS NEEDED PRN 04/24 1315 AC 04/28 PO 0917 Omeprazole 40 MG DAILY AC 04/24 0700 AC 04/28 PO 0807 Ondansetron HCl 4 MG Q6P PRN 04/23 1615 AC PO Oxycodone/ 2 TAB Q6-PRN PRN 04/23 1630 AC 04/28 Acetaminophen PO 0810 Thiamine HCl 100 MG DAILY 04/24 1000 AC 04/28 PO 0807 Dose Instructions: (1)Insulin Aspart: PER SLIDING SCALE Vital Signs Date Time Temp Pulse Resp B/P Pulse O2 O2 Flow FiO2 Ox Delivery Rate 04/28 0753 95.8 66 118/69 04/27 2021 97.1 69 111/60 04/27 1600 68 118/62 04/27 1226 70 107/58 EKG 04/20/16 sinus rhythm, QT 408, QTc 437, borderline intraventricular conduction delay, no significant change since previous tracing (Dr. Yousuf Starr) Depression: 0/10 (10 worst) Anxiety: 4/10 (10 worst) regarding his meeting with [facility] today Denies SI/HI, AH/VH, PI. States he would feel hopeless "if things go bad [with [facility]] then yeah" Clear speech. Goal-directed thoughts. Eye contact WNL. Appears alert and oriented. A: Client is a 35 year old single male with major depressive disorder and alcohol use disorder who was hospitalized after a suicide attempt by insulin OD for which he self-presented to the ED. He reports he slept well and has a "decent" appetite and energy level. He continues to have stomach pain 4/10 (10 worst) which is tolerable and alleviated by his prn percocet. Client states that he had this pain prior to hospitalization and it has not worsened during the course of his time here. This process description writer expressed to client that should he relapse on alcohol, the pancreatitis may kill him. Client verbalizes understanding. Client denies any alcohol cravings on the unit. He denies any problems with the prozac increase or ativan taper. Today is the last day of standing ativan, but client will continue to have a prn dose available to him. Client reports that the analgesic balm was too "greasy" so he only utilized it once. He does not have any upcoming family sessions. Client lists his girlfriend whom he has been dating for 5 months to be his only support. He states to this process description writer that he is motivated to remain on prozac after discharge, and that he will seek care from [facility]. Discussed medications to help with alcohol cravings when client is discharged. Though he denies alcohol cravings on the unit, client has a history of multiple relapses. As client is currently on percocet, will not start naltrexone. Discussed antabuse versus campral. Client agreeable to start campral. This process description writer also met with client in conjunction with [facility] and social services director Lily North to discuss discharge plan. Client understands the risks, benefits, and side effects of his current medication regimen and is agreeable to continue taking them. P: 1. Continue to provide psychosocial support 2. Start campral 666mg TID 3. Continue other medications
--- NOTE | 2016-04-28 11:26 | NUR ---
Pt is present in the community and appropriately interacting with peers and staff, mood is stable with full range affect, vital signs are stable, reported many + aspects to life such as job he has been working for a few months and motivated to get back, did not attend planning meeting but did go to focus group where he spoke about wanting to lead a healthier more positive lifestyle, showed some good insight.
[2016-04-28 12:36] VITALS: BP 122/74
--- NOTE | 2016-04-28 12:36 | PN- Diabetes ---
Assessment/Plan Assessment: Patient was admitted after he intentionally gave himself Levemir 200 units on . Now he on in [facility]. He was put on Levemir 10 units twice a day, Novolog coverage before meals and Novolog coverage at bedtime. 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 This morning his fingerstick blood sugar is 243. The patient states that he gets pain when eating from his chronic pancreatitis. He is on pancreatic enzymes and does receive some Percocet. Plan: Suggest increase the patient's Levemir to 12 units twice a day. Continue sliding-scale NovoLog but will increase by 1 unit for each interval. Subjective Subjective: Feels a little better Review of Systems Constitutional: Denies: chills, fever. Cardiovascular: Denies: chest pain. Respiratory: Denies: short of breath. Gastrointestinal: Reports: abdominal pain (epigastric). Skin: Reports: no symptoms. Objective Last 24 Hrs of Vital Signs/I&O Vital Signs Date Time Temp Pulse Resp B/P Pulse O2 O2 Flow FiO2 Ox Delivery Rate 04/28 1236 66 122/74 02/ 0753 95.8 66 118/69 /2021 97.1 69 111/60 02/ 1600 68 118/62 Vital Signs Date Time Temp Pulse Resp B/P Pulse O2 O2 Flow FiO2 Ox Delivery Rate 04/28 1236 66 122/74 02/08 0753 95.8 66 118/69 /2021 97.1 69 111/60 02/ 1600 68 118/62 Physical Exam General Appearance: alert, awake, comfortable Head: normal appearance Neck: normal inspection Respiratory: normal breath sounds Extremities: normal inspection
[2016-04-28 15:36] VITALS: BP 114/62
--- NOTE | 2016-04-28 17:13 | SOCIAL WORKER PROG NOTE PSYCH ---
Social Work Progress Note Progress Note Directors from [facility] in [place] came to meet with [facility]. Nicolasa Roman APRN and I were also part of this meeting. They talked with [facility] about the length of stay at their program needing to be 14 days and that they cannot make an exception for him, as they have in the past. They asked about his discharge plan and what he would be following up on. He said that he planned to look for an apartment with the tax return money he recieves. They mentioned that their supervised apartment programs may be an option. Rent is around 475 a month. [facility] did say that he was attempting to find an apartment with his girlfriend if possible. He admitted that he couldn't say whether or not he would have something secured in 2 weeks. He was asked if he would then consider going to the half-way? He said he didn't want to if he had to worry about his belongings. [facility] offered to hold his things and work with him as he was staying in the half-way. Lissette and Shane were clear with him that they have to have limits and give him the same treatment that all their other patients get. He didn't argue this. He stated during the meeting that he would do breathlyzer's at the door and that he would let them hold his bank card. Talked about trying to maintain his sobriety since he doesn't want to lose his job. Shane encouraged me to fill out a referral and send it over. He said they will look and see if they can have a bed for Tuesday or Tuesday next week. Referral started and waiting to be signed off on by the doctor. [facility] also handed me short term disability paperwork that needs to be completed and signed off on by the doctor. I gave this to Nicolasa Roman APRN.
[2016-04-28 20:02] VITALS: BP 115/66
--- NOTE | 2016-04-28 22:29 | NUR ---
PT IS VISIBLE ON UNIT, VERY SOCIAL WITH PEERS AND STAFF. ATTENDED WRAP UP MEETING AND PARTICIPATED. COOPERATIVE AND COMPLIANT WITH STAFF. 2129 BLOOD SUGAR WAS 417. NO COMPLAINTS OR SI REPORTED. PT HAS A STABLE MOOD AND FULL RANGE AFFECT.
--- NOTE | 2016-04-29 05:36 | NUR ---
PT APPEARED TO SLEEP AFTER PRN PERC/ACETAMINOPHEN AT 2044.
[2016-04-29 07:50] VITALS: BP 115/66
--- NOTE | 2016-04-29 08:50 | CP SOUTH PROGRESS NOTE PSYCH ---
See Addendum Psych (Inpt) Progress Note Progress Note Progress Note: [I discussed this patient's progress to date, current mental status, treatment process in the context of the treatment plan, and discharge planning with staff/ team in the daily morning inpatient team meeting. I also met with the patient myself in individual session.] S: "I feel alright" O: Current Medications Sig/Alejandrina Start time Last Medication Dose Route Stop Time Status Admin Acamprosate 666 MG TID 04/28 1600 AC 04/29 PO 0818 Acetaminophen 650 MG Q6P PRN 04/23 1630 AC PO Fluoxetine HCl 40 MG 0800 04/28 0800 AC 04/29 PO 0817 Folic Acid 1 MG DAILY 04/24 1000 AC 04/29 PO 0817 Insulin Aspart See Dose AC & AT BEDTIME 04/23 1700 AC 04/29 Insts (1) SC 0820 Insulin Detemir 12 UNITS BID 04/28 2200 AC 04/28 SC 2345 Insulin Detemir 10 UNITS BID 04/25 2200 DC 04/28 SC 0919 Lipase/Protease/ 1 CAP WITH MEALS 04/23 1700 AC 04/29 Amylase PO 0816 Lorazepam 0.5 MG DAILY 04/28 1000 DC / PO 08 1001 0808 Lorazepam 0.5 MG Q8P PRN 04/25 1230 AC PO 05/02 1229 Melatonin 5 MG AT BEDTIME 04/23 2200 AC 04/28 PO 2307 Methyl Salicylate 1 ARYAN BID PRN 04/27 1300 AC 04/27 TOP 1441 Multivitamins 1 TAB DAILY 04/24 1000 AC 04/29 PO 0817 Nicotine 4 MG Q2 HRS NEEDED PRN 04/24 1315 AC 04/28 PO 1737 Omeprazole 40 MG DAILY AC 04/24 0700 AC 04/29 PO 0611 Ondansetron HCl 4 MG Q6P PRN 04/23 1615 AC PO Oxycodone/ 2 TAB WITH MEALS PRN 04/28 1915 AC 04/29 Acetaminophen PO 0823 Oxycodone/ 2 TAB Q6-PRN PRN 04/23 1630 DC 04/28 Acetaminophen PO 04/29 0000 2041 Thiamine HCl 100 MG DAILY 04/24 1000 AC 04/29 PO 0817 Dose Instructions: (1)Insulin Aspart: PER SLIDING SCALE Vital Signs Date Time Temp Pulse Resp B/P Pulse O2 O2 Flow FiO2 Ox Delivery Rate 04/29 0750 97.3 72 115/66 04/28 2001 95.9 72 115/66 04/28 1536 73 114/62 04/28 1236 66 122/74 Sadness: 0/10 (10 worst) Anxiety: 0/10 (10 worst) Denies SI/HI, AH/VH, PI. Clear speech. Goal-directed thoughts. Eye contact WNL. Alert and oriented x4. A: Client presents today casually dressed in own clothes. He denies any complications with campral start. He reports he is tolerating the medication well. He denies alcohol cravings. Client states he intends to follow through with the [facility] discharge plan. He will be there for 2 weeks and then , if need be, enter a group home until he can secure housing. He reports he slept "not so well" but that he finds the melatonin to be helpful. His appetite is "decent" and he has no complaints about his energy level. pipe out worker has partially completed short term disability paperwork for client, this flex o writer operator to complete. Client is now finished with ativan taper and has started percocet taper. He has not been utilizing PRN ativan therefore will discontinue order. Client agreeable. He understands that he will not be discharged with percocet. Today he is getting 2 percocet TID with meals PRN. Tomorrow he will get 2 percocet Q12 PRN, suggest the following day be 2 daily PRN then stop. Continue prozac. P: 1. Continue oxycodone taper 2. Continue other medications 3. Continue to provide psychosocial support
[2016-04-29 12:37] VITALS: BP 101/57
--- NOTE | 2016-04-29 14:15 | SOCIAL WORKER PROG NOTE PSYCH ---
Social Work Progress Note Progress Note Pt reports for the first time in his life he has held down a job and received a W2, he wants to make the approrpiate decisions and make them caustiously, he is determined to abstain from etoh, he reports a trigger to relaspe is being discharged to a snf. he is aware of efforts being made on hsi bahlf upon discharge. Pt reprts trying to not get ahead of himself and all "the what ifs". Pt returned to group and had no other concerns at this time.
[2016-04-29 15:50] VITALS: BP 121/57
--- NOTE | 2016-04-29 15:59 | IP INCIDENTAL NOTE PSYCH ---
Incidental Note Notation: Nursing alerted this greeting card writer that client was complaining of "blister on his foot ". This greeting card writer examined client's left foot. No erythema, edema, warmth, discharge. Small circular bump palpated which client reports is painful. Discussed with Dr. Sherwood. As client is known diabetic, ordered podiatry consult for tomorrow 04/29/16. Asked nursing to evaluate q shift.
--- NOTE | 2016-04-29 17:33 | NUR ---
Message left on Dr. Brown answering service ([phone]) for consult, will also pass in report for day shift tomorrow to renotify as well.
[2016-04-29 19:27] VITALS: BP 118/63
--- NOTE | 2016-04-29 22:02 | NUR ---
PT. LANCE EVENING SHOWED THIS NURSE HIS FOOT. NOTED A SMALL AREA TO BALL OF LEFT FOOT PIMPLE-LIKE AREA REDDENED PT. "HURTS" DR. EPSTEIN WILL BE CALLED IN AM TO REMIND FOR CONSULT.
--- NOTE | 2016-04-30 05:35 | NUR ---
SLEPT WELL AWAKE TO BATHROOM ONCE.
[2016-04-30 07:50] VITALS: BP 108/71
--- NOTE | 2016-04-30 08:47 | CP SOUTH PROGRESS NOTE PSYCH ---
Psych (Inpt) Progress Note Progress Note [I discussed this patient's progress to date, current mental status, treatment process in the context of the treatment plan, and discharge planning with staff/ team in the daily morning inpatient team meeting. I also met with the patient myself in individual session.] S: "You're setting me up to fail." O: Current Medications Sig/Alejandrina Start time Last Medication Dose Route Stop Time Status Admin Acamprosate 666 MG TID 04/28 1600 AC 04/30 PO 0756 Acetaminophen 650 MG Q6P PRN 04/23 1630 AC PO Fluoxetine HCl 40 MG 0800 04/28 0800 AC 04/30 PO 0756 Folic Acid 1 MG DAILY 04/24 1000 AC 04/30 PO 0756 Insulin Aspart See Dose AC & AT BEDTIME 04/23 1700 AC 04/30 Insts (1) SC 0757 Insulin Detemir 12 UNITS BID 04/28 2200 AC 04/29 SC 2147 Lipase/Protease/ 1 CAP WITH MEALS 04/23 1700 AC 04/30 Amylase PO 0756 Lorazepam 0.5 MG Q8P PRN 04/25 1230 DC PO 05/02 1229 Melatonin 5 MG AT BEDTIME 04/23 2200 AC 04/29 PO 2146 Methyl Salicylate 1 ARYAN BID PRN 04/27 1300 AC 04/27 TOP 1441 Multivitamins 1 TAB DAILY 04/24 1000 AC 04/30 PO 0756 Nicotine 4 MG Q2 HRS NEEDED PRN 04/24 1315 AC 04/29 PO 2148 Omeprazole 40 MG DAILY AC 04/24 0700 AC 04/30 PO 0756 Ondansetron HCl 4 MG Q6P PRN 04/23 1615 AC PO Oxycodone/ 2 TAB Q12P PRN 04/30 0600 AC 04/30 Acetaminophen PO 0804 Oxycodone/ 2 TAB Q12P PRN 04/29 1030 CAN Acetaminophen PO Oxycodone/ 2 TAB WITH MEALS PRN 04/28 1915 DC 04/29 Acetaminophen PO 04/30 0000 1730 Thiamine HCl 100 MG DAILY 04/24 1000 AC 04/30 PO 0756 Dose Instructions: (1)Insulin Aspart: PER SLIDING SCALE No new labs Vital Signs Date Time Temp Pulse Resp B/P Pulse O2 O2 Flow FiO2 Ox Delivery Rate 04/30 0750 97.2 63 108/71 04/29 1927 96.9 74 118/63 04/29 1550 67 121/57 04/29 1237 62 101/57 Patient seen by Podiatry today (see note) and followed by Endocrinology for diabetes and pancreatitis. Anxiety: 3/10 Depression: 0/10 Dressed comfortably with adequate hygiene, long red goatee. Affect initially pleasant and somewhat guarded and irritable towards end of session. Speech loud and with good eye contact. Describes current mood as "fine" and later reports feeling irritated when discussing discharge planning. Patient denies feeling depressed or current active/passive SI/HI, and reports feeling safe on unit. Denies AH/VH, psychotic symptoms. Reports feeling anxious when discussing discharge planning. Sleep is okay. Experiences some pain with eating and is on pancrease enzymes. Patient reports no difficulties with percocet taper. Recently experienced "flushed" feeling which he believes is related to campral, he requests to discontinue it and his prozac at this time. He denies current alcohol cravings, however states that he plans to drink should he [facility] to [facility]. Lily Brock LCSW present during session and discussed discharge planning. Patient requests to remain at [facility] for more than two weeks and states he does not wish to reside in homeless jail. A: Recently completed ativan taper and currently on percocet taper. Pain scale over past 24hrs have ranged from 4-7. He has chronic pancreatitis and is on pancreatic enzymes and is being followed by podiatry. On campral to help with alcohol cravings, patient requests to discontinue medications at this time. Supply Planner strongly advised patient to remain on current medications. See no reason to discontinue medications while patient is inpatient. Client understands the risks, benefits, and side effects of his current medication regimen. Plan continue oxycodone taper to off continue current medications continue to monitor client on unit for safety, SI, benzo withdrawal, opioid withdrawal appreciate endocrine input on diabetes and pancreatitis management appreciate podiatry input on patient's left foot lesion discharge planning per primary team appreciate wound care/podiatry input on patient's foot patient to discharge to [facility] when psychiatrically stable
--- NOTE | 2016-04-30 09:54 | SOCIAL WORKER PROG NOTE PSYCH ---
Social Work Progress Note Progress Note Faxed referral to the [facility]. Also had S[employer]ero sign a release for [employer] so I could fax his short term disability information to . Information faxed to [phone]. Did phone screening with Shane from [facility]. He does not anticipate an opening for Tuesday. Stated we will talk Tuesday to see about Tuesday. Jo-Ann Wei APRN and I met with [employer]. I let him know that his phone screening was done for Crisis and Respite and there probably won't be a bed on Tuesday. He started talking about how if he needs to leave their program in 2 weeks and go to a assisted we are just setting him up for failure. He is putting the blame on the hospital for setting up this discharge plan. I asked him if he had any other options? He said no. I talked about how we are setting him up with this plan as a stepping stone and it is temporary and that it is up to him to make better choices from there. He stated he would end of drinking and going back to the hospital again. I told him that didn't have to be one of the choices. Asked if he would like me to set him up for aftercare with [facility]? He refused, stating that the only place he'll go back to is [facility]. He then told Jo-Ann Wei APRN and I that he was not going to take the Prozac or the Campral anymore. He reports not feeling well on the Campral and doesn't think he needs the Prozac. He told Jo-Ann to discontinue it. He had an irritable mood today and admitted that it was about the conversation we were having regarding his discharge plans. He then got up and left the office.
[2016-04-30 12:21] VITALS: BP 115/70
--- NOTE | 2016-04-30 13:51 | Cons- Podiatry ---
General Information and HPI Consulting Request Date of Consult: 04/30/16 Requested By: DIONTE TOPETE MD History of Present Illness: Robert is a 35-year-old diabetic male admitted for a psychiatric complaint, who noted approximately 3 days ago that he had a posterior lesion to the plantar aspect of his left foot with drainage. The patient denies any obvious inciting factors. Patient denies stepping on anything or ambulating while barefoot. Patient denies systemic signs of infection. Patient denies nausea vomiting fever chills. Allergies/Medications Allergies: Coded Allergies: adhesive tape (UNKNOWN REACTION TO SURGICAL TAPE 05/13/15) tramadol (Mild, DIZZY 05/13/15) ketorolac (From TORADOL) (MUSCLE CRAMPING 01/12/16) Home Med List: Esomeprazole (Nexium) 40 MG CAPSULE. 1 CAP PO DAILY GI (Reported) FLUOXETINE HCL (Fluoxetine HCl) 20 MG CAP 1 TAB PO DAILY MENTAL HEALTH Folic Acid 1 MG TABLET 1 MG PO DAILY nutrition Insulin Aspart, Recombinant (Novolog Flexpen) 100 UNIT/ML INSULN.PEN 0 SC TIDAC/HS DIABETES PLEASE TAKE bLOOD SUGAR-INSULIN DOSE 80-150 MG/DL-3 units 151-200 MG/DL-4 units 201-250 MG/DL-5 units 251-300 MG/DL-6 units 301-350 MG/DL-7 units 351-400 MG/DL-8 units >400 MG/DL- 8 units. CALL BED TIME 80-150 MG/DL-0 UNITS 151-200 MG/DL-0 UNITS 201-250 mg/dl-0 UNITS 251-300 mg/dl-2 UNITS 301-350 mg/dl-3 UNITS 351-400 mg/dl-4 UNITS >400 mg/dl-4 UNITS. cALL mmini Insulin Detemir (Levemir Flextouch) 100 UNIT/ML (3 ML) INSULN.PEN 8 UNITS SC BID DIABETES Lipase/Protease/Amylase (Gretchen Tavarez 24,000 Units Capsule) 24-76-120K CAPSULE. 2 TAB PO TID SUPPLEMENT Lorazepam (Ativan) 0.5 MG TABLET 0 PO SEE ADMIN CRITERIA PRN alcohol withdrawl please take- 2 tabs(1mg) every 6hrs on 04/23 1 tab(0.5mg) every 6hrs on 04/24 1 tab(0.5mg) every 8hrs on 04/25 1 tab(0.5mg) every 12 hrs on 04/26 1 tab(0.5mg) every 24 hrs on 04/27. Multivitamin (One Daily Multivitamin) 1 EACH TABLET 1 TAB PO DAILY nutrition Nicotine Polacrilex (Nicorette) 2 MG GUM 1 GUM PO DAILY SMOKINNG Ondansetron HCl (Zofran) 4 MG TABLET 1 TAB PO Q6-8P PRN NAUSEA Oxycodone HCl/Acetaminophen (Percocet 5-325 MG Tablet) 5 MG-325 MG TABLET 1 TAB PO BID PRN PAIN Thiamine HCl (Vitamin B-1) 100 MG TABLET 100 MG PO DAILY nutrtion Past History Medical History Neurological: history of TBI EENT: NONE Cardiovascular: NONE Respiratory: pulmonary embolism Gastrointestinal: pancreatitis (complicated by pseudocyst), upper GI bleed, GEOVANNY-LEMA TEAR Hepatic: NONE Renal: NONE Musculoskeletal: NONE Psychiatric: depression, substance abuse, PTSD benzodiazepine dependence suicide attempts Endocrine: diabetes Blood Disorders: PE Cancer(s): NONE 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 Home Who Do You Live With? friends Services at Home: None Primary Language: Faroese Functional Ability ADLs Independent: dressing, eating, toileting, bathing. Ambulation: independent IADLs Independent: shopping, housework, finances, food prep, telephone, transportation , medication admin. Employment History Employment: Employed Profession/Employer: [employer] in [place] Review of Systems Review of Systems: Unremarkable except for that noted in history present illness Exam & Diagnostic Data Vital Signs and I&O Vital Signs Date Time Temp Pulse Resp B/P Pulse O2 O2 Flow FiO2 Ox Delivery Rate 04/30 1221 66 115/70 04/30 0750 97.2 63 108/71 04/29 1927 96.9 74 118/63 04/29 1550 67 121/57 Physical Exam: Neurovascular status grossly intact bilaterally. Small hyperkeratotic lesion noted sub-first met head left foot. No active drainage identified. No cellulitis noted. There is some pain with palpation. Assessment/Plan Assessment/Plan Superficial skin lesion plantar left foot. Recommend x-ray the left foot to rule out a retained foreign body. For now, keep the foot clean and dry. No dressings required. Consult Acknowledgment - Thank you for your consult request. Attending MD Review Statement Attending Statement Attending MD Statement: examined this patient
--- NOTE | 2016-04-30 13:59 | NUR ---
PT WAS VISIBLE IN THE [place] TODAY. HE HAS BEEN ATTENDING GROUPS TODAY, AND INTERACTING WITH PEERS AND STAFF ALIKE. PT HAS BEEN COOPERATIVE WITH STAFF DIRECTION, AND DENIES HURTING SELF WHEN ASKED.
[2016-04-30 15:55] VITALS: BP 113/72
--- NOTE | 2016-04-30 16:52 | RADIOLOGY REPORT ---
EXAMINATION: XR FOOT, LEFT CLINICAL INFORMATION: Draining ulcer plantar surface left foot below first metatarsal head. Evaluate for osteomyelitis, foreign body. COMPARISON: None TECHNIQUE: AP, lateral, and oblique views of the left foot. FINDINGS: The bones and soft tissues are normal. No fracture. Alignment is anatomic. Joint spaces are maintained. IMPRESSION: Normal left foot.
[2016-04-30 19:28] VITALS: BP 112/61
--- NOTE | 2016-04-30 21:51 | NUR ---
Pt is out in the community mood is stable interacts well with his peers, vital signs are stable appetite is good. Will continue to monitor the pt overnight.
--- NOTE | 2016-05-01 05:43 | NUR ---
PT APPEARED TO SLEEP. -SI.
[2016-05-01 07:59] VITALS: BP 98/71
--- NOTE | 2016-05-01 09:39 | PN- Diabetes ---
Assessment/Plan Assessment: Patient was admitted after he intentionally gave himself Levemir 200 units on . Now he on in [facility]. He was put on Levemir 10 units twice a day, Novolog coverage before meals and Novolog coverage at bedtime. His FSGs were 175, 111, 284, 299 and 149. Plan: continue the current insulin regimen for now. Subjective Subjective: He feels okay. His glucose level has been relatively stable. Objective Last 24 Hrs of Vital Signs/I&O Vital Signs Date Time Temp Pulse Resp B/P Pulse O2 O2 Flow FiO2 Ox Delivery Rate 05/01 0759 97.0 64 98/71 04/30 1928 96.4 74 112/61 04/30 1555 67 113/72 04/30 1221 66 115/70 Intake & Output 05/01 1600 05/01 0800 05/01 0000 Intake Total Output Total Balance Patient 154 lb Weight
[2016-05-01 12:34] VITALS: BP 103/66
--- NOTE | 2016-05-01 13:52 | NUR ---
PT IS COMPLIANT AND COOPERATIVE. MOOD IS STABLE WITH A FULL RANGE OF AFFECT. PT DENIES SI AT THIS TIME, NO COMPLAINTS OFFERED. PT IS PRESENT IN THE COMMUNITY AND INTERACTING WELL WITH PEERS AND STAFF. PT IS ATTENDING GROUPS. VITALS ARE STABLE, APPETITE IS GOOD. BLOOD SUGAR ELEVATED- 149 @0800 AND 263 @1200.
--- NOTE | 2016-05-01 15:18 | CP SOUTH PROGRESS NOTE PSYCH ---
Psych (Inpt) Progress Note Progress Note Include the following elements, when applicable: Involvement in the active treatment of the patient with behavioral observations of the patient and the patient's response to the treatment. Review of the ongoing treatment process in the context of the treatment plan. Indication of how multi-disciplinary staff members are carrying out the treatment plan. Plans for future interventions and recommendations for revision of the treatment plan. Liaison with other physicians/providers. Progress Note: Pt notes that continued pain 2/2 pancreatitis. Unable to eat lunch today because of it but did eat a big breakfast. Denies SI or HI. Noted that acamprosate caused flushing, refusing to continue to take it. Notes good mood overall. Current Medications Sig/Alejandrina Start time Last Medication Dose Route Stop Time Status Admin Acamprosate 666 MG TID 04/28 1600 DC 04/30 PO 0756 Acetaminophen 650 MG Q6P PRN 04/23 1630 AC PO Fluoxetine HCl 40 MG 0800 04/28 0800 AC 05/01 PO 1033 Folic Acid 1 MG DAILY 04/24 1000 AC 05/01 PO 0758 Insulin Aspart See Dose AC & AT BEDTIME 04/23 1700 AC 05/01 Insts (1) SC 1238 Insulin Detemir 12 UNITS BID 04/28 2200 AC 05/01 SC 1033 Lipase/Protease/ 1 CAP WITH MEALS 04/23 1700 AC 05/01 Amylase PO 1238 Melatonin 5 MG AT BEDTIME 04/23 2200 AC 04/30 PO 2303 Methyl Salicylate 1 ARYAN BID PRN 04/27 1300 AC 04/27 TOP 1441 Multivitamins 1 TAB DAILY 04/24 1000 AC 05/01 PO 0758 Nicotine 4 MG Q2 HRS NEEDED PRN 04/24 1315 AC 05/01 PO 1338 Omeprazole 40 MG DAILY AC 04/24 0700 AC 05/01 PO 0705 Ondansetron HCl 4 MG Q6P PRN 04/23 1615 AC PO Oxycodone/ 2 TAB WMBID PRN 05/01 1508 AC Acetaminophen PO Oxycodone/ 2 TAB Q12P PRN 04/30 0600 DC 05/01 Acetaminophen PO 0802 Thiamine HCl 100 MG DAILY 04/24 1000 AC 05/01 PO 0758 Dose Instructions: (1)Insulin Aspart: PER SLIDING SCALE Vital Signs Date Time Temp Pulse Resp B/P Pulse O2 O2 Flow FiO2 Ox Delivery Rate 05/01 1234 60 103/66 05/01 0759 97.0 64 98/71 04/30 1928 96.4 74 112/61 04/30 1555 67 113/72 MSE Appears as stated age. Cooperative behavior, good, appropriate eye contact. Nl speech rate and prosody. No psychomotor retardation or agitation. Mood good Affect euthymic full range appropriate, non-liable. Linear and goal directed thought process. Denies SI or HI. Does not appear to be responding to internal stimuli. Denies AVHs, paranoia, or delusions. I/J: limited A/P: Pt with unspecified mood disorder with improved mood. Will closely montior - Change perocet PRNs to be taken PRN with breakfast and dinner as patient needs pain relief with meals - Pt requesting increase in pancreatic enzymes, to contact endocrine MD for recs ; seen this am - Continue current medication regimen
[2016-05-01 16:21] VITALS: BP 121/67
[2016-05-01 19:57] VITALS: BP 131/81
--- NOTE | 2016-05-01 22:34 | NUR ---
PT IS CALM, COOPERATIVE WITH STAFF AND PEERS, AND COMPLIANT WITH UNIT RULES. PT RECIEVED VISITORS TODAY DURING EVENING SHIFT. PT IN [place], INTERACTING WELL WITH OTHERS. BLOOD GLUSOCSE LEVELS: AT 1630 - 271, AT 2130 - 307. MOOD IS STABLE, AFFECT IS FULL RANGE, COMMUNCIATION IS NORMAL, AND APPETITE IS NORMAL. PT DENIES SI AT THIS TIME.
[2016-05-02 08:13] VITALS: BP 109/64
--- NOTE | 2016-05-02 08:43 | PN- Diabetes ---
Assessment/Plan Assessment: Patient was admitted after he intentionally gave himself Levemir 200 units on . Now he on in [facility]. He was put on Levemir 10 units twice a day, Novolog coverage before meals and Novolog coverage at bedtime. His FSGs were 149, 263, 271, 307 and 108. Patient was having diarrhea after meals. Creon was increased to Creon-36 before meals. He started feeling better. Plan: continue Creon 36 before meals; continue the current insulin orders for now; monitor FSGs. will follow. Subjective Subjective: He feels better. Objective Last 24 Hrs of Vital Signs/I&O Vital Signs Date Time Temp Pulse Resp B/P Pulse O2 O2 Flow FiO2 Ox Delivery Rate 05/02 0813 96.9 63 109/64 05/01 1956 96.6 74 131/81 05/01 1621 72 121/67 05/01 1234 60 103/66
--- NOTE | 2016-05-02 08:52 | CP SOUTH PROGRESS NOTE PSYCH ---
Psych (Inpt) Progress Note Progress Note Include the following elements, when applicable: Involvement in the active treatment of the patient with behavioral observations of the patient and the patient's response to the treatment. Review of the ongoing treatment process in the context of the treatment plan. Indication of how multi-disciplinary staff members are carrying out the treatment plan. Plans for future interventions and recommendations for revision of the treatment plan. Liaison with other physicians/providers. Progress Note: Pt notes continued improved mood, sleep and slight improvement in appetite. Hopeful that increase in pancreatic enzymes will decrease his diarrhea after meals. Denies SI or HI. Denies psychotic sx. Current Medications Sig/Alejandrina Start time Last Medication Dose Route Stop Time Status Admin Acamprosate 666 MG TID 04/28 1600 DC 04/30 PO 0756 Acetaminophen 650 MG Q6P PRN 04/23 1630 AC PO Fluoxetine HCl 40 MG 0800 04/28 0800 AC 05/01 PO 1033 Folic Acid 1 MG DAILY 04/24 1000 AC 05/01 PO 0758 Insulin Aspart See Dose AC & AT BEDTIME 04/23 1700 AC 05/02 Insts (1) SC 0831 Insulin Detemir 12 UNITS BID 04/28 2200 AC 05/01 SC 2225 Lipase/Protease/ 7 CAP WM 05/02 0800 AC 05/02 Amylase PO 0828 Lipase/Protease/ 1 CAP WITH MEALS 04/23 1700 DC 05/01 Amylase PO 1714 Melatonin 5 MG AT BEDTIME 04/23 2200 AC 05/01 PO 2225 Methyl Salicylate 1 ARYAN BID PRN 04/27 1300 AC 04/27 TOP 1441 Multivitamins 1 TAB DAILY 04/24 1000 AC 05/01 PO 0758 Nicotine 4 MG Q2 HRS NEEDED PRN 04/24 1315 AC 05/01 PO 2226 Omeprazole 40 MG DAILY AC 04/24 0700 AC 05/02 PO 0825 Ondansetron HCl 4 MG Q6P PRN 04/23 1615 AC PO Oxycodone/ 2 TAB WMBID PRN 05/01 1508 AC 05/02 Acetaminophen PO 0827 Oxycodone/ 2 TAB Q12P PRN 04/30 0600 DC 05/01 Acetaminophen PO 0802 Thiamine HCl 100 MG DAILY 04/24 1000 AC 05/01 PO 0758 Dose Instructions: (1)Insulin Aspart: PER SLIDING SCALE Vital Signs Date Time Temp Pulse Resp B/P Pulse O2 O2 Flow FiO2 Ox Delivery Rate 05/02 0813 96.9 63 109/64 MSE Appears as stated age. Cooperative behavior, good, appropriate eye contact. Nl speech rate and prosody. No psychomotor retardation or agitation. Mood fine Affect euthymic, full range, appropriate, non-liable. Linear and goal directed thought process. Denies SI or HI. Does not appear to be responding to internal stimuli. Denies AVHs, paranoia, or delusions. I/J: limited A/P: Pt with unspecified mood disorder with improved mood on fluoxetine. - Continue current medication regimen - Pancreatic enzymes increased per endo to 36,000 at AC - Encourage intergration into the milieu
--- NOTE | 2016-05-02 12:05 | NUR ---
Pt is observed to have second lesion beside the previous one in his plantar aspect of the Left Foot aleady evaluated by the surgical services assistant. HOD has been notified who promise to come down to evalute the lesion. Small dry gauze and bandage was placed on the effected area before socks instructed patient to favor his left foot as he complains of pain due to the lesion. Pt is afebrile, denies any other physical discomfort. A&O X 3, compliant with medication and group therapies, Vital sign is stable and WNL,denies thought of self-harm and to some someone else.
[2016-05-02 13:19] VITALS: BP 106/67
[2016-05-02 16:27] VITALS: BP 121/69
[2016-05-02 19:46] VITALS: BP 106/60
--- NOTE | 2016-05-02 21:34 | NUR ---
PT IS VISIBLE ON UNIT, VERY SOCIAL WITH PEERS AND STAFF. COOPERATIVE AND COMPLIANT. NO COMPLAINTS OR SI REPORTED. PT HAS A STABLE MOOD AND FULL RANGE AFFECT.
--- NOTE | 2016-05-03 06:52 | NUR ---
PATIENT BRIEFLY AWAKE IN [employer]AC [employer]CHANIC, OTHERWISE SLEPT ALL NIGHT.
[2016-05-03 07:49] VITALS: BP 115/77
--- NOTE | 2016-05-03 09:20 | PN- Diabetes ---
Assessment/Plan Assessment: Patient was admitted after he intentionally gave himself Levemir 200 units on . Now he on in [facility]. The patient is presently on Levemir 14 units twice a day. His FSG this am id 98. Patient was having diarrhea after meals. Creon was increased to Creon-36 before meals. He started feeling better. Plan: If the patient goes home today he can resume his usual outpatient regimen. This is Levemir 20 units once a day and sliding-scale NovoLog before meals. Prescriptions were made out for him because he states he no longer has insulin at home. he was also given a prescription for Freestyle lite test strips.He wishes to go back to his previous diabetes doctor who is in [place]. Subjective Subjective: Feels okay Review of Systems Constitutional: Denies: chills, fever. Cardiovascular: Denies: chest pain. Respiratory: Denies: short of breath. Gastrointestinal: Reports: abdominal pain. Genitourinary: Denies: frequency. Objective Last 24 Hrs of Vital Signs/I&O Vital Signs Date Time Temp Pulse Resp B/P Pulse O2 O2 Flow FiO2 Ox Delivery Rate 05/03 0749 96.7 69 115/77 05/02 1946 95.9 70 106/60 05/02 1627 70 121/69 05/02 1319 66 106/67 Vital Signs Date Time Temp Pulse Resp B/P Pulse O2 O2 Flow FiO2 Ox Delivery Rate 05/03 0749 96.7 69 115/77 05/02 1946 95.9 70 106/60 05/02 1627 70 121/69 05/02 1319 66 106/67 Physical Exam General Appearance: alert, awake, comfortable Head: normal appearance Neck: normal inspection Respiratory: normal breath sounds Cardiovascular: regular rate/rhythm Current Medications: Current Medications Sig/Alejandrina Start time Last Medication Dose Route Stop Time Status Admin Acetaminophen 650 MG Q6P PRN 04/23 1630 AC PO Fluoxetine HCl 40 MG 0800 04/28 0800 AC 05/02 PO 0902 Folic Acid 1 MG DAILY 04/24 1000 AC 05/02 PO 0902 Insulin Aspart See Dose AC & AT BEDTIME 04/23 1700 AC 05/03 Insts (1) SC 0853 Insulin Detemir 12 UNITS BID 04/28 2200 AC 05/02 SC 2225 Lipase/Protease/ 7 CAP WM 05/02 0800 AC 05/02 Amylase PO 1704 Melatonin 5 MG AT BEDTIME 04/23 2200 AC 05/02 PO 2224 Methyl Salicylate 1 ARYAN BID PRN 04/27 1300 AC 04/27 TOP 1441 Multivitamins 1 TAB DAILY 04/24 1000 AC 05/02 PO 0903 Nicotine 4 MG Q2 HRS NEEDED PRN 04/24 1315 AC 05/02 PO 1958 Omeprazole 40 MG DAILY AC 04/24 0700 AC 05/03 PO 0708 Ondansetron HCl 4 MG Q6P PRN 04/23 1615 AC PO Oxycodone/ 2 TAB WMBID PRN 05/01 1508 AC 05/03 Acetaminophen PO 0724 Thiamine HCl 100 MG DAILY 04/24 1000 AC 05/02 PO 0903 Dose Instructions: (1)Insulin Aspart: PER SLIDING SCALE
--- NOTE | 2016-05-03 12:06 | CP SOUTH PROGRESS NOTE PSYCH ---
Psych (Inpt) Progress Note Progress Note Include the following elements, when applicable: Involvement in the active treatment of the patient with behavioral observations of the patient and the patient's response to the treatment. Review of the ongoing treatment process in the context of the treatment plan. Indication of how multi-disciplinary staff members are carrying out the treatment plan. Plans for future interventions and recommendations for revision of the treatment plan. Liaison with other physicians/providers. Progress Note: [I discussed this patient's progress to date, current mental status, treatment process in the context of the treatment plan, and discharge planning with staff/ team in the daily morning inpatient team meeting. I also met with the patient myself in individual session.] SUBJECTIVE: "I feel fine, I want to go home." OBJECTIVE: Current Medications Sig/Alejandrina Start time Last Medication Dose Route Stop Time Status Admin Acetaminophen 650 MG Q6P PRN 04/23 1630 AC PO Fluoxetine HCl 40 MG 0800 02 0800 AC 05/02 PO 0902 Folic Acid 1 MG DAILY 04/24 1000 AC 05/03 PO 0935 Insulin Aspart See Dose AC & AT BEDTIME 04/23 1700 AC 05/03 Insts (1) SC 0853 Insulin Detemir 12 UNITS BID 04/28 2200 AC 05/03 SC 0932 Lipase/Protease/ 7 CAP WM 05/02 0800 AC 05/02 Amylase PO 1704 Melatonin 5 MG AT BEDTIME 04/23 2200 AC 05/02 PO 2224 Methyl Salicylate 1 ARYAN BID PRN 04/27 1300 AC 04/27 TOP 1441 Multivitamins 1 TAB DAILY 04/24 1000 AC 05/02 PO 0903 Nicotine 4 MG Q2 HRS NEEDED PRN 04/24 1315 AC 05/03 PO 1139 Omeprazole 40 MG DAILY AC 04/24 0700 AC 05/03 PO 0708 Ondansetron HCl 4 MG Q6P PRN 04/23 1615 AC PO Oxycodone/ 2 TAB WMBID PRN 05/01 1508 AC 05/03 Acetaminophen PO 0724 Thiamine HCl 100 MG DAILY 04/24 1000 AC 05/02 PO 0903 Dose Instructions: (1)Insulin Aspart: PER SLIDING SCALE Vital Signs Date Time Temp Pulse Resp B/P Pulse O2 O2 Flow FiO2 Ox Delivery Rate 05/03 0749 96.7 69 115/77 05/02 1946 95.9 70 106/60 05/02 1627 70 121/69 02/12 1319 66 106/67 ASSESSMENT: Chart, progress notes, medication list, VS labs and FS reviewed. Patient refused morning dose of Prozac 40mg. Met with patient today on the date of discharge. Patient presented alert and oriented to person, place, time and situation. Speech was normal in rate, tone and volume. Affect was full-range. Mood was "fine." Eye contact was appropriate. Patient was initially not scheduled for discharge d/t waiting for a [facility] bed, as he previously had no place to return to. He reported this morning that his girlfriend was agreeable to having him return to her home in [place], [place]. Patient therefore elected to no longer pursue [facility] bed since now having a place to return to. He would not allow this curriculum writer to contact his girlfriend to confirm this disposition plan. Today, on encounter, the patient reported depression of 0/10 (10 being the worst ) and anxiety of 0/10 (10 being the worst). He denied active and passive suicidal ideation, plans and intent. He denied homicidal ideation. He stated and also believed he will not harm himself or others. He identified his "girlfriend " as a protective factor and a positive support. He denied feeling hopeless, helpless, worthless, or guilty. He denied urges/cravings to use alcohol and/or other drugs. He was agreeable to f/u with after care plan at [facility] in [place], [place] and to follow-up with outpatient metal miner for diabetes management. He denied auditory and visual hallucinations. Thought process was linear and organized. Thought content was appropriate. Cognition was grossly intact. The patient reported feeling safe and ready for discharge. PLAN: 1. Discharge today into the care of his girlfriend. 2. F/u at [facility] on 05/06/16 at 1:45PM with Clinician Nicolasa. Patient verbalized understanding of appointment. 3. F/u at [place] [facility] with Dr. Hansen on 05/17/16 at 1:15PM. Patient verbalized understanding of appointment. 4. F/u with Smoking Cessation Program on 05/12/16 at 4PM for assistance with smoking cessation. Patient verbalized understanding of appointment. 5. Patient was strongly advised to please take his medications as prescribed. D/ C prescriptions printed, reviewed with patient and provided to patient on discharge. H/W prescriptions for Levemir pen, Novolog pen, pen needles, and glucose testing strips were provided by Dr. Rojas. Patient was provided with a copy of Novolog sliding scale (before meals TID and HS) on discharge. Patient verbalized understanding of all prescribed medications and administration instructions. 6. In the event of an emergency, call 911/go to nearest emergency department. Patient verbalized understanding of all instructions.
[2016-05-03 12:16] VITALS: BP 116/61
[2016-05-03] MEDS ORDERED: LEVEMIR FL100 UNIT/1 SC (12:16)
[2016-05-03] MEDS ORDERED: NOVOLOG FL100 UNIT/1 SC (12:19)
[2016-05-03] MEDS ORDERED: OMEPRAZOLE20 M2 PO (12:24)
[2016-05-03] MEDS ORDERED: MELATONIN5 M7 PO (12:24)
[2016-05-03] MEDS ORDERED: NICORELIEF4 MG PO (12:24)
[2016-05-03] MEDS ORDERED: FLUOXETINE HCL20 M2 PO (12:24)
[2016-05-03] MEDS ORDERED: ZENPEP DR 5,001 EACH PO ×2 (12:24→13:15)
--- NOTE | 2016-05-03 12:25 | DISCHARGE SUMMARY REPORT-PSYCH ---
Visit Information Visit Dates/Diagnosis' Admission Date: 04/23/16 Discharge Date: 05/03/16 Reason for Admission: Suicide attempt via insulin overdose. Psy Discharge Primary Diag: Unspecified depressive disorder Psy Discharge Secondary Diag: Alcohol use disorder; Diabetes, pacreatic insufficiency Hospital Course Significant Lab Findings: Lab Amylase < 30 U/L L 04/20/16 2109 Cortisol AM Sample 10.3 ug/dL 04/21/16 0500 Glucose 180 mg/dL H 04/23/16 0645 Hemoglobin A1c 11.3 H 04/21/16 0500 Insulin Level 52.6 mIU/mL H 04/21/16 0500 TSH 2.200 uIU/mL 04/26/16 0805 TSH &T3 &Free T4 Intrp 1.310 uIU/mL 04/23/16 0645 Urine Opiates Screen 263.00 NG/ML 04/21/16 1430 04/30/16 XRAY of LEFT FOOT: FINDINGS: The bones and soft tissues are normal. No fracture. Alignment is anatomic. Joint spaces are maintained. IMPRESSION: Normal left foot. Course Complications: Elevated blood sugars Consultations: The patient was seen for admission history and physical by Dr. Linda Gomez. Please see her note for additional details. The patient was consulted by Dr. Redd Rojas and Dr. Sebastian Bell from endocrinology. Per Dr. Rojas and Dr. Bell, Levemir was increased to 12 units twice a day and Novolog Sliding scale was adjusted before meals and at bedtime as follows: Novolog Sliding Scale Before Meals (Three times a day): 80-150 mg/dl: 6 units 151- 200 mg/dl: 7 units 201-250 mg/dl: 8 units 251-300 mg/dl: 9 units 301-350 mg/dl: 10 units 351-400 mg/dl: 11 units More than 400 mg/dl: 12 units Novolog Sliding Scale at Bedtime 251-300 mg/dl: 2 units 301-350 mg/dl: 3 units 351-400 mg/dl: 4 units More than 400 mg/dl: [address] Rojas evaluated the patient prior to discharge on 05/03/16. Per Dr. Rojas, the patient was instructed to resume outpatient Levemir 20 units once daily and instructed to continue inpatient Novolog sliding scale before meals and at bedtime. The patient was provided with hand-written prescriptions for Novolog pen #5, NR; Levemir pen #5, NR; pen needles #100, NR; and glucose test strips # 100, NR by Dr. Rojas. The patient was additionally consulted by assistant professor of surgery Dr. Dae Lopez for a posterior lesion to the plantar aspect of his left foot with drainage. An xray of the patient's left foot was ordered by Dr. Lopez and completed. Xray of left foot resulted within normal limits. No further management was recommended by Dr. Lopez. Allergies: Coded Allergies: adhesive tape (UNKNOWN REACTION TO SURGICAL TAPE 05/13/15) tramadol (Mild, DIZZY 05/13/15) ketorolac (From TORADOL) (MUSCLE CRAMPING 01/12/16) Hospital Course/TX Response: The patient was monitored on the unit for safety, suicidal ideation, alcohol withdrawal and mood disorder. The patient participated in multimodal treatments on the unit. The patient was monitored on CIWA protocol and started on an Ativan taper for alcohol withdrawal. The patient successfully completed Ativan taper with no complications. The patient was restarted on Prozac 20mg daily for depression/anxiety which he had been nonadherent to prior to this inpatient hospitalization. Prozac was increased to 40mg daily for depression/anxiety. Campral 666mg was started TID for alcohol cravings, and was later discontinued d /t unclear reasons and the patient's request to discontinue medication. The patient tolerated Prozac well and denied untoward medication effects. During the hospital course, the patient's mood and affect improved. Suicidal ideation remitted. On the date of discharge, 05/03/16, it was this video game script writer's first encounter with the patient on [facility]. His discharge was reviewed with his primary CPS clinician Lily Brock LCSW and the [facility] treatment team. The patient was deemed psychiatrically cleared from inpatient level of care. On the date of discharge 05/03/16, the patient presented alert and oriented to person, place, time and situation. Speech was normal in rate, tone and volume. Affect was full-range. Mood was "fine." Eye contact was appropriate. He had no complaints. The patient reported depression of 0/10 (10 being the worst) and anxiety of 0/10 (10 being the worst). He denied active and passive suicidal ideation, plans and intent. He denied homicidal ideation. He stated and also believed he will not harm himself or others. He identified his "girlfriend" as a protective factor and a positive support. He felt safe returning to his girlfriend's home in [place], [place] post-discharge. He denied feeling hopeless, helpless, worthless, or guilty. He denied urges/cravings to use alcohol and/or other drugs. He was agreeable to f/u with after care plan at [facility] in [place], [place] and to follow-up with outpatient egg tester for diabetes management. He denied auditory and visual hallucinations. Thought process was linear and organized. Thought content was appropriate. Cognition was grossly intact. The patient reported feeling safe and ready for discharge. Discharge HBIPS - Tobacco Use Treatment Offered Post DC Medications Offered: Script Given-See Med List Post DC Tobacco Treatment Plan: [facility]x Pgm Program Appt Date: 05/12/16 Program Appt Time: 1600 - EtOH/Drug Use D/O Treatment Offered Post DC Medications Offered: Ref Med EtOH/Drug Use D/O Post DC EtOH/SubAbuse TX Plan: Refused Post DC Tx Pgm Metabolic Screening - Screen if on a Neuroleptic Medication - Metabolic screening should include: - Blood Pressure, BMI, Glucose or Hgb A1c, & a - Lipid profile from within the past 365 days. Metabolic Screening ([X]) Not Applicable, patient not on a neuroleptic. OR () Patient on a neuroleptic(s) . Enter below results for Glucose or Hemoglobin A1C, and lipid panel if obtained during the last 365 days. BMI: 23.000 Blood Pressure: 116/61 Laboratory Results (If applicable): n/a Discharge Instructions General Discharge Information Discharge Medications: Discharge Medications- (Dose, route, freq, indication): HOME MEDICATION LIST START taking these NEW Home Medications: Nicotine Polacrilex Dose: ORAL, EVERY 2 HOURS Qty: 30 Printed (Nicorelief) 4 MG 4 Milligram NEEDED as needed for Refills: 0 GUM Tobacco cessation Fluoxetine HCl Dose: ORAL, DAILY @8 AM for Qty: 28 Printed (Fluoxetine HCl) 20 40 Milligram depression/anxiety Refills: 0 MG CAPSULE Take 2 capsules (40mg) by mouth every morning. Lipase/Protease/ Dose: ORAL, WITH MEALS TID for Qty: 98 Printed Amylase (Zenpep Dr 7 Capsule pancreatic insufficiency Refills: 2 5,000 Units Capsule) [id number] CAPSULE. Omeprazole Dose: ORAL, DAILY BEFORE Qty: 28 Printed (Omeprazole) 20 MG 40 Milligram BREAKFAST for GERD Refills: 0 CAPSULE. Melatonin Dose: ORAL, AT BEDTIME for Qty: 14 Printed (Melatonin) 5 MG 5 Milligram insomnia Refills: 0 TABLET Take 1 tablet by mouth at bedtime. CONTINUE taking these Home Medications: Folic Acid (Folic Acid) Dose: ORAL, DAILY for 1 MG TABLET 1 Milligram nutrition Last Taken: 04/23/16 Time: 1019 Thiamine HCl (Vitamin B- Dose: ORAL, DAILY for nutrtion 1) 100 MG TABLET 100 Milligram Last Taken:04/23/16 Time:1020 Multivitamin (One Daily Dose: ORAL, DAILY for Multivitamin) 1 EACH 1 Tablet nutrition TABLET Last Taken: 04/23/16 Time:1020 Insulin Detemir (Levemir Dose: Inject into fatty H/W Rx provided Dr. Rojas Flextouch) 100 UNIT/ML 20 Unit tissue, DAILY for #5, NR (3 ML) INSULN.PEN diabetes Per Dr. Rojas Insulin Aspart, Dose: Inject into fatty H/W Rx provided by Dr. Rojas Recombinant (Novolog tissue, SEE #5, NR Flexpen) 100 UNIT/ML INSTRUCTIONS for INSULN.PEN diabetes Novolog Sliding Scale Before Meals (Three times a day): 80-150 mg/dl: 6 units 151-200 mg/dl: 7 units 201-250 mg/dl: 8 units 251-300 mg/dl: 9 units 301-350 mg/dl: 10 units 351-400 mg/dl: 11 units More than 400 mg/dl: 12 units and call Novolog Sliding Scale at Bedtime: 251-300 mg/dl: 2 units 301-350 mg/dl: 3 units 351-400 mg/dl: 4 units More than 400 mg/dl: 5 units and call Multiple Neuroleptics: ([X]) Not Applicable OR Document below three failed attempts at monotherapy, or a plan to taper to monotherapy, or augmentation of Clozapine. () Patient's Diet: Regular. Patient's Activity: No restrictions. DC Disposition: Patient to return to girlfriend and girlfriend's home in [place], [place]. Recommendations: The patient was advised to please take his medications as prescribed. He was advised to abstain from alcohol and other drugs. He was advised to attend AA/NA meetings and to obtain a sponsor for support in sobriety. He was advised to follow-up with all scheduled outpatient appointments (please see in referral section). He was advised that in the event of an emergency to call 911/go to nearest emergency department. Patient verbalized understanding of all instructions. Referred To: The [address] )[phone] Intake appointment scheduled on 05/06/16 at 1:45PM with Clinician Nicolasa. [facility] - Dr. Hansen [address] [place] [address] ()[phone] Appointment scheduled with outpatient egg tester Dr. Hansen on 05/17/16 at 1 :15PM. [facility] [address] [place] [address] ()[phone] Walk into group on 05/12/16 at 4PM. Please bring appointment card. Copies To: [facility]; [facility] endocrinology Appointment scheduled with outpatient egg tester Dr. Hansen on 05/17/16 at 1 :15PM. [facility] [address] [place] [address] ()[phone] Walk into group on 05/12/16 at 4PM. Please bring appointment card. Copies To: [facility]; [facility] endocrinology
--- NOTE | 2016-05-03 12:27 | SOCIAL WORKER PROG NOTE PSYCH ---
Social Work Progress Note Progress Note Called [facility] in [place]. Spoke with Shane, who informed me that there was no bed available today and that there may not be a bed for awhile. Sotero approached me late morning stating he was ready to go and that his girlfriend was available to pick him up today. I questioned which girlfriend he was referring to? He didn't seem to want to answer me directly. I told him that the team would need to discuss his discharge for today and if that was okay. Sotero met with Caroline Suarez APRN and I. We talked about where he would be receiving treatment from here? He stated he didn't need any treatment and that he always refuses treatment. I asked about where he would get his Prozac? He stated he wasn't taking it after leaving here. I stressed the importance of staying sober and that he needed to have some follow up from here to assist him. Told him I will try and call [facility] again and if I couldn't get someone there, I would encourage him to follow up with [facility] in [place]. Called [facility] and was able to get him an intake with a clinician for 1:45pm on [facility] in [place]. Clinical can be faxed to [phone]. Informed Sotero of the appt. I also worked with Sotero to determine where he was seen for his endocrinology appt. a few months back. It turns out he was seen by [facility] on [address] in [place]. Called and found out he was seen by Dr. Lucy Lee. Got him a follow up with her for 05/17 at 1:15pm.
--- NOTE | 2016-05-03 13:07 | NUR ---
Discharge Assessment Patient to be discharged with f/u psych and endocrinology. Patient minimizes previous suicide attempts, denies SI at present. Patient encouraged to look at ETOH use as a trigger for impulsive behaviors. Patient has no relapse prevention plan- "I'll just stop". Meds reviewed with a stress on compliance. Suicide management education reviewed with the patient.
== END 2016-05-03 14:32 | DRG 754 ==
LOC: CP SOUTH 15:32 → DELPENDDIS 17:34 → ENPENDDIS 17:34 → CP SOUTH 05-03 14:32
PROVIDERS: ADMIT Psychiatry & Neurology Psychiatry
DX: F32.9 Major depressive disorder, single episode, unspecified (principal); Z72.89 Other problems related to lifestyle; E11.9 Type 2 diabetes mellitus without complications; K86.89 Other specified diseases of pancreas
CPT/HCPCS: 36415; 73630-LT; J3101; J3490

== ENCOUNTER 2016-05-21 13:47 | Emergency (ER) | payer OTHER ==
[~2016-05-21 13:47] MED LIST changes: +FLUOXETINE HCL20 M2 PO; +MELATONIN5 M7 PO; +NICORELIEF4 MG PO; +NICORETTE2 M2 PO; +NOVOLOG FL100 UNIT/1 SC; +OMEPRAZOLE20 M2 PO; +ZENPEP DR 5,001 EACH PO
--- NOTE | 2016-05-21 14:12 | ED PSYCHIATRIC COMPLAINT ---
See Addendum History of Present Illness General Chief Complaint: Psychiatric Related Complaint Stated Complaint: PT IS POSTIVE SI Source: patient, old records Exam Limitations: intoxication Vital Signs & Intake/Output Vital Signs & Intake/Output Vital Signs Date Time Temp Pulse Resp B/P Pulse O2 O2 Flow FiO2 Ox Delivery Rate 05/21 2335 97.8 71 18 103/56 97 Room Air 05/21 2105 96.4 96 12 94/62 05/21 1653 98.4 76 16 98/54 05/21 1538 Room Air 05/21 1415 94.7 84 16 92/64 Allergies Coded Allergies: adhesive tape (UNKNOWN REACTION TO SURGICAL TAPE 05/13/15) tramadol (Mild, DIZZY 05/13/15) ketorolac (From TORADOL) (MUSCLE CRAMPING 01/12/16) Reconcile Medications Fluoxetine HCl 20 MG CAPSULE 40 MG PO 0800 depression/anxiety Take 2 capsules (40mg) by mouth every morning. Folic Acid 1 MG TABLET 1 MG PO DAILY nutrition Insulin Aspart, Recombinant (Novolog Flexpen) 100 UNIT/ML INSULN.PEN diabetes ( Reported) Novolog Sliding Scale Before Meals (Three times a day): 80-150 mg/dl: 6 units 151-200 mg/dl: 7 units 201-250 mg/dl: 8 units 251-300 mg/dl: 9 units 301-350 mg/dl: 10 units 351-400 mg/dl: 11 units More than 400 mg/dl: 12 units and call Novolog Sliding Scale at Bedtime: 251-300 mg/dl: 2 units 301-350 mg/dl: 3 units 351-400 mg/dl: 4 units More than 400 mg/dl: 5 units and call Insulin Detemir (Levemir Flextouch) 100 UNIT/ML (3 ML) INSULN.PEN 20 UNIT SC DAILY diabetes (Reported) Lipase/Protease/Amylase (Sudheer Tavarez 5,000 Units Capsule) [id number] CAPSULE. 7 CAP PO WM pancreatic insufficiency Lipase/Protease/Amylase (Sudheer Tavarez 5,000 Units Capsule) [id number] CAPSULE.DR Schofield CAP PO WM pancreatic insufficiency Take 7 capsules by mouth three times a day with meals. Melatonin 5 MG TABLET 5 MG PO AT BEDTIME insomnia Take 1 tablet by mouth at bedtime. Multivitamin (One Daily Multivitamin) 1 EACH TABLET 1 TAB PO DAILY nutrition Nicotine Polacrilex (Nicorelief) 4 MG GUM 4 MG PO Q2 HRS NEEDED PRN Tobacco cessation Omeprazole 20 MG CAPSULE.DR 40 MG PO DAILY AC GERD Thiamine HCl (Vitamin B-1) 100 MG TABLET 100 MG PO DAILY nutrtion Triage Note: PT TO ER WITH REPORTS OF +SI AND ETOH USE. PT DENIES HI. Triage Nurses Notes Reviewed? yes Onset: Abrupt (b) Duration: hour(s): (5) Timing: single episode today Severity: severe Associated Symptoms: suicidal ideation, depression, alcohol abuse HPI: 35 year old male with history of IDDM and substance abuse, brought in by housing placement staff of [facility] after his girlfriend reported he was drinking and expressing suicidal ideation. They found him surrounded by bottles of alcohol this morning. He was very depressed, recently sober for 15 days. Patient reports he took 300-400 units of levemir this morning 5-6 hours ago in an attempt to kill himself. (FRANCE LOPEZ,DENISE) Past History Travel History Traveled to [place] past 21 day No Medical History Any Pertinent Medical History? see below for history Neurological: history of TBI EENT: NONE Cardiovascular: NONE Respiratory: pulmonary embolism Gastrointestinal: pancreatitis (complicated by pseudocyst), upper GI bleed, GEOVANNY-LEMA TEAR Hepatic: NONE Renal: NONE Musculoskeletal: NONE Psychiatric: depression, substance abuse, PTSD benzodiazepine dependence suicide attempts Endocrine: diabetes Blood Disorders: PE Cancer(s): NONE PLANNING ASSOCIATE/Reproductive: NONE History of MRSA: No History of VRE: No History of CDIFF: No Tetanus Vaccine: 04/20/12 Surgical History Surgical History: IVC filter placement GREY IN R LEG R SCAPULA REPAIR Psychosocial History Who do you live with Friend Services at Home None What is your primary language Indonesian Tobacco Use: Current Daily Use Daily Tobacco Use Amount/Type: => 5 Cigarettes daily ETOH Use: heavy use Illicit Drug Use: denies illicit drug use Family History Family History, If Any: MOTHER Cervical cancer FH: diabetes mellitus FH: lung cancer FATHER FH: brain tumor Hx Contributory? No (DENISE HOUGH MD) Review of Systems Review of Systems Constitutional: Denies: fever. EENTM: Reports: no symptoms. Respiratory: Reports: no symptoms. Cardiovascular: Denies: chest pain. GI: Denies: abdominal pain. Genitourinary: Reports: no symptoms. Musculoskeletal: Reports: no symptoms. Skin: Reports: no symptoms. Neurological/Psychological: Reports: anxiety, depressed, emotional problems. Hematologic/Endocrine: Reports: no symptoms. Immunologic/Allergic: Denies: splenectomy. All Other Systems: Reviewed and Negative (DENISE HOUGH MD) Physical Exam Physical Exam General Appearance: well developed/nourished, mild distress Head: atraumatic Eyes: Bilateral: PERRL, EOMI. 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 yes 1 Depression/Hopelessness? yes 2 Previous Attempts/Psych Care yes 1 Excessive Ethanol/Drug Use? yes 1 Rational Thinking Loss? yes 2 Single//? yes 1 Organized/Serious Attempt yes 2 Social Support? has no support 1 Stated Future Intent? yes 2 Total 13 SAD PERSONS Done? yes (DENISE HOUGH MD) Progress Differential Diagnosis: SUICIDAL IDEATION, OVERDOSE ON INSULIN, ALCOHOL ABUSE Plan of Care: Orders Procedure Date/time Status ED CRISIS PSYCH CONSULT 05/21 1840 Active Add-on Test (ER Only) 05/21 1445 Active MAGNESIUM 05/21 1423 Complete FingerStick- Glucose 05/21 1417 Active MIXED VENOUS BLOOD GAS (GEN) 05/21 1413 Active Continuous Observation Monitor 05/21 1413 Active URINE DRUGS OF ABUSE 05/21 1413 Complete ETHANOL 05/21 1413 Complete COMPREHENSIVE METABOLIC PANEL 05/21 1413 Complete CBC WITHOUT DIFFERENTIAL 05/21 1413 Complete ACETONE 05/21 1413 Complete Current Medications Sig/Alejandrina Start time Last Medication Dose Stop Time Status Admin Insulin Aspart 10 UNITS ONCE ONE 05/22 0015 UNVr (NovoLOG) 05/22 0016 Laboratory Tests 05/21/16 1423: Anion Gap 17 H, Estimated GFR > 60, BUN/Creatinine Ratio 14.0, Glucose 430 H, Calcium 8.9, Magnesium 1.6, Total Bilirubin 0.4, AST 31, ALT 43, Alkaline Phosphatase 73, Total Protein 6.7, Albumin 4.2, Globulin 2.5, Albumin/Globulin Ratio 1.7, CBC w Diff NO MAN DIFF REQ, RBC 4.71, MCV 86.2, MCH 29.5, RDW 14.4, MPV 9.4, Gran % 69.1, Lymphocytes % 25.3, Monocytes % 3.9, Eosinophils % 1.1, Basophils % 0.6, Absolute Granulocytes 6.0, Absolute Lymphocytes 2.2, Absolute Monocytes 0.3, Absolute Eosinophils 0.1, Absolute Basophils 0.1, PUBS MCHC 34.2, Serum Alcohol 299.0, Acetone Level NEGATIVE 05/21/16 1415: Urine Opiates Screen < 100.00, Methadone Screen < 40, Barbiturate Screen < 60, Ur Phencyclidine Scrn < 6.00, Amphetamines Screen < 100, U Benzodiazepines Scrn < 85, Urine Cocaine Screen < 50, Urine Cannabis Screen < 5.00 05/21/16 1335: Bicarbonate Actual 25, Mixed VBG pH 7.36, Mixed VBG pCO2 45, Mixed VBG O2 Saturation 57 H, P-50 (Temp Corrected) YES, Carboxyhemoglobin 4.0, O2 Concentration % RA, Temperature 94.7 L, O2 Delivery Method RA, Phlebotomy Draw Site LAC sitter order, serial glucose check q 30 minutes, labs, mixed venous, acetone. crisis consult with sober and medically stable. (DENISE HOUGH MD) Hand-Off Endorsed To: RADHA LOPEZ,DIONTE Ji Endorsed Time: 1905 Pending: consult (CRISIS) (DENISE HOUGH MD) Departure Departure Disposition: STILL A PATIENT Condition: Guarded Clinical Impression Primary Impression: Suicide attempt Secondary Impressions: Alcohol intoxication, Overdose of insulin Referrals: CAROL MCCORMICK MD (PCP/Family) Departure Forms: Customer Survey General Discharge Information (DENISE HOUGH MD) PA/PARACHUTE TAPER Co-Sign Statement Statement: ED Attending supervision documentation- [] I saw and evaluated the patient. I have also reviewed all the pertinent lab results and diagnostic results. I agree with the findings and the plan of care as documented in the PA's/PARACHUTE TAPER's documentation. [x] I have reviewed the ED Record and agree with the PA's/PARACHUTE TAPER's documentation. [] Additions or exceptions (if any) to the PAs/PARACHUTE TAPER's note and plan are summarized below: [] (RADHA LOPEZ,DIONTE Ji)
[2016-05-21 14:37] LABS: ABSOLUTE BASOPHIL COUNT 0.1 /CUMM (0.0-0.2); ABSOLUTE EOSINOPHIL COUNT 0.1 /CUMM (0.0-0.7); ABSOLUTE LYMPH COUNT 2.2 /CUMM (1.2-3.4); ABSOLUTE MONOCYTE COUNT 0.3 /CUMM (0.10-0.60); BASOPHIL % 0.6 % (0.0-2.0); EOSINOPHIL % 1.1 % (0-5); GRANULOCYTE % 69.1 % (42.2-75.2); HEMATOCRIT 40.6 % (42-52); MEAN CORPUSCULAR HGB 29.5 PG (27.0-31.0); MEAN CORPUSCULAR HGB CONC 34.2 G/DL (33.0-37.0); MEAN CORPUSCULAR VOLUME 86.2 FL (80.0-94.0); MEAN PLATELET VOLUME 9.4 FL (7.4-10.4); PLATELET COUNT 199 /CUMM (130-400); RBC DISTRIBUTION WIDTH 14.4 % (11.5-14.5); RED BLOOD CELL CT 4.71 /CUMM (4.70-6.10); WHITE BLOOD CELL COUNT 8.8 /CUMM (4.8-10.8)
[2016-05-22 11:25] VITALS: BP 110/60
--- NOTE | 2016-05-22 12:09 | ED PSYCH CRISIS CONSULTATION ---
Crisis Consult Basic Assessment Date of Consult: 05/22/16 Responsible Person/Accompanied By: Vollee Workers (Rosario and Humberto) Insurance Authorization: Insurance #1: Insurance name: JEANCARLOS STAFFORD Phone number: Policy number: [id number] Group number: Authorization number: n/a ED Provider: Patient's ED Provider: DENISE HOUGH MD Primary Care Physician: Patient's PCP: CAROL MCCORMICK MD PCP's Current Psychiatrist: none Chief Complaint: Psychiatric Related Complaint Patient's Quote: "I'm not suicidal" Present Illness: Pt is a 35 year old male brought to the ED last night by two of his Vollee workers. Pt has an extensive history of alcohol abuse, SI and suicide attempts by insulin OD, his last attempt being at the beginning of April 2016, after which he was admitted to [facility]. According to reports made by both pt and his girlfriend (Courtney Joyner) via telephone, pt had received his Income Tax refund yesterday and so had packed up his belongings and left his girlfriends house so that he could go to a hotel room and use alcohol. Pt reports that he had been sober about two and half weeks at that point. Pts gf explains that pt knows that he is not allowed to drink in her house or around her as she is in recovery. Pt's girlfriend reports that pt called her from the hotel room asking her to come and get him so she went to the hotel room and found him intoxicated, crying and listening to a song called "mother". Pt's girlfriend reports that pt 's mother a few years ago and he is still very upset about this. Pt 's girlfriend reports that she and pt were first talking pleasantly about him getting some help, but then pt apparently became angry and started "talking nasty" to her. Pt tells this coat examiner that he was getting angry because he was talking to her about getting their own apartment together, but that his gf said that she could not leave her son who also lives with them. Pt says that he also does not like his girlfriend telling him that he needs help and treating him "like she was my mother". Pt's girlfriend reports that after she left 's motel room last night, pt kept calling and texting both her and her son saying nasty things" and also saying that he was going to kill himself and that it would be her fault. Pt denies remembering making any suicidal statements or having any suicidal thoughts last night, however acknowledges that he was very intoxicated - having had 30 beers - and does not remember some of the events of last night. Pt. says that he last remembers his two Vollee workers coming to his hotel room and saying that they were taking him to the hospital for detox. Pt denied any current suicidal thoughts to this coat examiner during his evaluation this morning. He says that he intends on leaving [place] to go to [place] where his step-father and a few other relatives live. Pt says that he believes he has a better chance of staying sober there "because my family won't let me drink". He believes that if he goes into a Rehab here in [place] he will most likely relapse quickly because his girlfriend is his only support here in [place] and their relationship is very conflictual right now. Upon this coat examiner encouraging him to enter a rehab her in [place], pt. agreed to try it. However, when this coat examiner called the two rehabs in [facility] and [facility] - both programs said that they only did admissions Tuesday to Tuesday and so pt should call them back on Tuesday. Consulted with Dr. Godinez who is agreeable to his discharge from the ED with this follow-up plan.. Patient's Address: [address] [place] [address] Other Phone Number: n/a Who Do You Live With? Significant Other Family/Informants Interviewed: Pt's girlfriend (Courtney Joyner) [phone] Allergies - Coded Allergies: adhesive tape (UNKNOWN REACTION TO SURGICAL TAPE 05/13/15) tramadol (Mild, DIZZY 05/13/15) ketorolac (From TORADOL) (MUSCLE CRAMPING 01/12/16) Current Medications - Scheduled Medications Fluoxetine HCl 20 MG CAPSULE 40 MG PO 0800 depression/anxiety #28 CAP Prescribed by TIN CULLEN APRN on 05/03/16 Folic Acid 1 MG TABLET 1 MG PO DAILY nutrition 30 Days Prescribed by NAE SKY on 04/23/16 Insulin Detemir (Levemir Flextouch) 100 UNIT/ML (3 ML) INSULN.PEN 20 UNIT SC DAILY diabetes #5 (Reported) Entered as Reported by TIN CULLEN APRN on 05/03/16 1216 Lipase/Protease/Amylase (Sudheer Tavarez 5,000 Units Capsule) [id number] CAPSULE.DR Schofield CAP PO WM pancreatic insufficiency #98 Prescribed by TIN CULLEN APRN on 05/03/16 Lipase/Protease/Amylase (Sudheer Tavarez 5,000 Units Capsule) [id number] CAPSULE.DR Schofield CAP PO WM pancreatic insufficiency #98 Prescribed by TIN CULLEN APRN on 05/03/16 Melatonin 5 MG TABLET 5 MG PO AT BEDTIME insomnia #14 TAB Prescribed by TIN CULLEN APRN on 05/03/16 Multivitamin (One Daily Multivitamin) 1 EACH TABLET 1 TAB PO DAILY nutrition 30 Days Prescribed by NAE SKY on 04/23/16 Omeprazole 20 MG CAPSULE. 40 MG PO DAILY AC GERD #28 Prescribed by TIN CULLEN APRN on 05/03/16 Thiamine HCl (Vitamin B-1) 100 MG TABLET 100 MG PO DAILY nutrtion 30 Days Prescribed by NAE SKY on 04/23/16 Scheduled PRN Medications Nicotine Polacrilex (Nicorelief) 4 MG GUM 4 MG PO Q2 HRS NEEDED PRN Tobacco cessation #30 GUM Prescribed by TIN CULLEN APRN on 05/03/16 Miscellaneous Medications Insulin Aspart, Recombinant (Novolog Flexpen) 100 UNIT/ML INSULN.PEN diabetes ( Reported) Entered as Reported by TIN CULLEN APRN on 05/03/16 1219 Laboratory Results: Laboratory Tests 05/21/16 1423: Anion Gap 17 H, Estimated GFR > 60, BUN/Creatinine Ratio 14.0, Glucose 430 H, Calcium 8.9, Magnesium 1.6, Total Bilirubin 0.4, AST 31, ALT 43, Alkaline Phosphatase 73, Total Protein 6.7, Albumin 4.2, Globulin 2.5, Albumin/Globulin Ratio 1.7, CBC w Diff NO MAN DIFF REQ, RBC 4.71, MCV 86.2, MCH 29.5, RDW 14.4, MPV 9.4, Gran % 69.1, Lymphocytes % 25.3, Monocytes % 3.9, Eosinophils % 1.1, Basophils % 0.6, Absolute Granulocytes 6.0, Absolute Lymphocytes 2.2, Absolute Monocytes 0.3, Absolute Eosinophils 0.1, Absolute Basophils 0.1, PUBS MCHC 34.2, Serum Alcohol 299.0, Acetone Level NEGATIVE 05/21/16 1415: Urine Opiates Screen < 100.00, Methadone Screen < 40, Barbiturate Screen < 60, Ur Phencyclidine Scrn < 6.00, Amphetamines Screen < 100, U Benzodiazepines Scrn < 85, Urine Cocaine Screen < 50, Urine Cannabis Screen < 5.00 05/21/16 1335: Bicarbonate Actual 25, Mixed VBG pH 7.36, Mixed VBG pCO2 45, Mixed VBG O2 Saturation 57 H, P-50 (Temp Corrected) YES, Carboxyhemoglobin 4.0, O2 Concentration % RA, Temperature 94.7 L, O2 Delivery Method RA, Phlebotomy Draw Site LAC Past History Past Medical History Neurological: history of TBI EENT: NONE Cardiovascular: NONE Respiratory: pulmonary embolism Gastrointestinal: pancreatitis (complicated by pseudocyst), upper GI bleed, GEOVANNY-LEMA TEAR Hepatic: NONE Renal: NONE Musculoskeletal: NONE Psychiatric: depression, substance abuse, PTSD benzodiazepine dependence suicide attempts Endocrine: diabetes Blood Disorders: PE Cancer(s): NONE 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 Psychiatric Treatment History Psych Treatment Psychiatric Treatment Yes Inpatient Treatment Yes Outpatient Treatment No Location of Treatment [facility] Reason for Treatment SI, Suicide attempts, ETOH abuse, Benzo abuse Dates of Treatment 04/2016, 04/2015, 07/2014 (2x), 04/2014, 12/2012, 07/2012, 2012, 02/2011 Response to Treatment Pt reports that he never folows uo with aftercare plan or stays on his meds, however he reports being sober for 2 and a half weeks after the most recent discharge. Diagnosis by History: Alcohol dependence, benzodiazepine dependence, mood disorder NOS, suicidal ideation, rule out bipolar disorder NOS, personality disorder NOS, with narcissistic traits, rule out antisocial traits. Substance Use/Abuse History Drug Use/Abuse 1 Substances Used/Abused Yes Substance Used/Abused Alcohol First Use unk Last Used yesterday How much used/taken 30 beers How often pt reports being sober for 2 and a half weeks and relapsed yesterday. For how long one day Route of use oral Drug Use/Abuse 2 Substances Used/Abused Yes Substance Used/Abused Benzodiazepines First Use unk Last Used unk How much used/taken n/a How often unk For how long unk - past hx Route of use unk Substance Abuse Treatment Substance Abuse Treatment Past Substance Abuse TX Yes Inpatient Treatment Yes Outpatient Treatment No Location of Treatment [facility] Reason for Treatment ETOH, Benzo detox Dates of Treatment 2016, 2015, 2014, 2012, 2010 Response to Treatment Pt reports that he does not usually f/u with aftercare but had been sober 2 and a half weeks until yesterday's relapse on ETOH. Comments: n/a Current Mental Status Mental Status Orientation: Person, Place, Situation Affect: WNL Speech: WNL Neuro-vegetative: WNL Appearance Appearance- Dress/Hygiene: WNL Behaviors Thought Process: WNL Thought Content: WNL Memory: WNL Insight: Poor SI/HI Risk Assessment Past Suicidal Ideation/Attempts Yes (last attempt was 04/23/16) Current Suicidal Ideation/Att No Past Homicidal Ideation/Att: No Current Homicidal Ideation/Attempts No Degree of Intent: None Danger To: none Gravely Disabled: none Risk Factors: chronic/serious med cond., history of suicide atmpts, SA/MH hospitalized, substance abuse, poor impulse control, male Lethality Ratin (mild) PTSD Checklist PTSD Done? patient declined ED Management Sitter: Yes Restraints: No DSM5/PS Stressors/Medical Prob Diagnosis' (DSM 5, Stressors, Medical): F33.2 - MDD, recurrent, severe; F10.20 - Alcohol Use D/O, severe. Stressors - unemployed, limited supports. Medical - Diabetes Current GAF: 50 Comments: unemployed, recent relapse, mild depression, no current SI. Departure Disposition Psych Medical Clearance Date: 05/22/16 Medically Cleared at: 0900 Time Started: 0900 Time Ended: 1000 Psychiatrist Consulted: Vera Godinez MD Date Disposition Established: 05/22/16 Time Disposition Established: 1000 Plan for Disposition - Modality: Substance Abuse Inp. Rehab Facility: Pt given numbers to [facility] in [facility] Contact: Jossue Quiroz Telephone: numbers given to pt. Rationale for Disposition: Pt denied current suicidal thoughts; pt's girlfriend did not feel he was a safety risk only at risk to relapse; Pt took numbers to two inpatient rehabs and agreed to call them on Tuesday. Consulted with Dr. Godinez who agreed that pt was not at current risk of harm to self or others and could be discharged. Additional Instructions: none Referrals CAROL MCCORMICK MD (PCP/Family)
== END 2016-05-22 12:30 ==
LOC: ERH 13:47
PROVIDERS: Emergency Medicine
DX: T38.3X2A Poisoning by insulin and oral hypoglycemic [antidiabetic] drugs, intentional self-harm, initial encounter (principal); F10.19 Alcohol abuse with unspecified alcohol-induced disorder; F32.9 Major depressive disorder, single episode, unspecified; E11.9 Type 2 diabetes mellitus without complications; Z79.4 Long term (current) use of insulin
CPT/HCPCS: 80307; 96372; 99291; G0463; G0480; J3101

== ENCOUNTER 2016-06-28 19:36 | Emergency (ER) | payer OTHER ==
[~2016-06-28] VITALS: Ht 177.8 cm; Wt 59.0 kg
--- NOTE | 2016-06-28 19:41 | ED GI/GU/ABDOMINAL COMPLAINT ---
History of Present Illness General Chief Complaint: Abdominal Pain/Flank Pain Stated Complaint: ABD PAIN Source: patient, old records Exam Limitations: intoxication Vital Signs & Intake/Output Vital Signs & Intake/Output Vital Signs Date Time Temp Pulse Resp B/P Pulse O2 O2 Flow FiO2 Ox Delivery Rate 06/29 1222 97.0 72 16 116/65 98 Room Air 06/29 1058 99.0 06/29 1032 99.0 88 20 110/60 20 06/29 0917 98.0 80 22 101/56 96 Room Air 06/29 0632 96.8 83 16 100/70 97 Room Air 06/28 1943 97.6 89 19 123/63 98 Room Air ED Intake and Output 06/29 0000 06/28 1200 Intake Total 1400 Output Total Balance 1400 Intake, IV 1400 Patient 130 lb Weight Allergies Coded Allergies: adhesive tape (UNKNOWN REACTION TO SURGICAL TAPE 05/13/15) tramadol (Mild, DIZZY 05/13/15) ketorolac (From TORADOL) (MUSCLE CRAMPING 01/12/16) Reconcile Medications Fluoxetine HCl 20 MG CAPSULE 40 MG PO 0800 depression/anxiety Take 2 capsules (40mg) by mouth every morning. Folic Acid 1 MG TABLET 1 MG PO DAILY nutrition Insulin Aspart, Recombinant (Novolog Flexpen) 100 UNIT/ML INSULN.PEN diabetes ( Reported) Novolog Sliding Scale Before Meals (Three times a day): 80-150 mg/dl: 6 units 151-200 mg/dl: 7 units 201-250 mg/dl: 8 units 251-300 mg/dl: 9 units 301-350 mg/dl: 10 units 351-400 mg/dl: 11 units More than 400 mg/dl: 12 units and call Novolog Sliding Scale at Bedtime: 251-300 mg/dl: 2 units 301-350 mg/dl: 3 units 351-400 mg/dl: 4 units More than 400 mg/dl: 5 units and call Insulin Detemir (Levemir Flextouch) 100 UNIT/ML (3 ML) INSULN.PEN 10 UNIT SC BID DM (Reported) Lipase/Protease/Amylase (Zensaimap 5,000 Units Capsule) [id number] CAPSULE. 7 CAP PO WM pancreatic insufficiency Nicotine Polacrilex (Nicorelief) 4 MG GUM 4 MG PO Q2 HRS NEEDED PRN Tobacco cessation Omeprazole 20 MG CAPSULE.DR 40 MG PO DAILY AC GERD Triage Note: PT BIBA C/O LUQ ABD PAIN THAT RADIATES TO BACK. PT STATES HE WAS HOSPITALIZED AT [facility] FOR SAME THING ON TUESDAY. PT ALSO STATES HE WAS HYPERGLYCEMIC, ON ARRIVAL BG 311. PT STATES HE HAS NOT BEEN COMPLIANT WITH INSULIN. PT ALSO STATES "SUGAR MIGHT BE HIGH BECAUSE I DRANK ALOT TODAY". DENIES SI/HI. Triage Nurses Notes Reviewed? yes HPI: 35-year-old male with history of insulin-dependent diabetes, pancreatic tenderness, chronic alcohol abuse presents to the ER with chief complaint of left upper quadrant abdominal pain radiating to the back since last . He states he stayed overnight at [facility] that night. He states he's been drinking a lot. He drinks one fifth of vodka daily last drank just prior to arrival. Admits to vomiting alcohol and clear brown. Denies any black or bloody emesis. Denies any fever or chills. (FRANCE LOPEZ,DENISE) Past History Travel History Traveled to [place] past 21 day No Medical History Any Pertinent Medical History? 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 No (FRANCE LOPEZ,DENISE) Review of Systems Review of Systems Constitutional: Denies: chills, fever. EENTM: Reports: no symptoms. Respiratory: Denies: cough, short of breath. Cardiovascular: Denies: chest pain, palpitations. GI: Reports: abdominal pain, nausea, vomiting. Genitourinary: Reports: no symptoms. Musculoskeletal: Reports: no symptoms. Skin: Reports: no symptoms. Neurological/Psychological: Reports: depressed. Hematologic/Endocrine: Reports: polyuria. Denies: bruising, bleeding, polydipsia. Immunologic/Allergic: Denies: splenectomy. All Other Systems: Reviewed and Negative (DENISE HOUGH MD) Physical Exam Physical Exam General Appearance: well developed/nourished, alert, awake, mild distress Head: atraumatic, normal appearance Eyes: Bilateral: normal appearance, PERRL, EOMI. Ears, Nose, Throat, Mouth: hearing grossly normal, moist mucous membrane Neck: normal inspection, supple, full range of motion Respiratory: normal breath sounds, chest non-tender, no respiratory distress Cardiovascular: regular rate/rhythm Peripheral Pulses: 2+ radial (R), 2+ radial (L) Gastrointestinal: normal bowel sounds, soft, tenderness (EPIGASTRIUM/LEFT UPPER QUADRAN) Back: normal inspection, normal range of motion Extremities: normal range of motion, evidence of injury Neurologic/Psych: no motor/sensory deficits, awake, alert, oriented x 3 Skin: intact, normal color, warm/dry Core Measures ACS in differential dx? No Severe Sepsis Present: No Septic Shock Present: No (DENISE HOUGH MD) Progress Differential Diagnosis: gastritis, hepatitis, pancreatitis, PUD/GERD, perforated viscous Plan of Care: Orders Procedure Date/time Status Regular Diet 06/29 B Active Continuous Observation Monitor 06/29 340 Active ED CRISIS PSYCH CONSULT 06/29 340 Active Patient Safety Monitor 06/29 010 Active MIXED VENOUS BLOOD GAS (GEN) 06/28 1940 Active URINE DRUGS OF ABUSE 06/28 1940 Complete PARTIAL THROMBOPLASTIN TIME 06/28 1940 Complete PROTHROMBIN TIME 06/28 1940 Complete LIPASE 06/28 1940 Complete ETHANOL 06/28 1940 Complete COMPREHENSIVE METABOLIC PANEL 06/28 1940 Complete CBC WITHOUT DIFFERENTIAL 06/28 1940 Complete ACETONE 06/28 1940 Complete Laboratory Tests 06/28/16 2000: Anion Gap 20 H, Estimated GFR > 60, BUN/Creatinine Ratio 15.7, Glucose 305 H, Calcium 9.6, Total Bilirubin 0.6, AST 62 H, ALT 62, Alkaline Phosphatase 69, Total Protein 7.3, Albumin 4.7, Globulin 2.6, Albumin/Globulin Ratio 1.8, Lipase 18 L, PT 10.0, INR 0.95, APTT 26, CBC w Diff NO MAN DIFF REQ, RBC 5.11, MCV 87.2, MCH 28.8, RDW 13.9, MPV 9.2, Gran % 64.4, Lymphocytes % 30.3, Monocytes % 4.2, Eosinophils % 0.7, Basophils % 0.4, Absolute Granulocytes 6.9 H, Absolute Lymphocytes 3.2, Absolute Monocytes 0.4, Absolute Eosinophils 0.1, Absolute Basophils 0, PUBS MCHC 33.0, Serum Alcohol 250.0, Acetone Level NEGATIVE 06/28/161953: Urine Opiates Screen < 100.00, Methadone Screen < 40, Barbiturate Screen < 60, Ur Phencyclidine Scrn < 6.00, Amphetamines Screen 104, U Benzodiazepines Scrn < 85, Urine Cocaine Screen < 50, Urine Cannabis Screen < 5.00 REFUSING TO EAT OR DRINK. D5W ORDERED. REFUSING GI COCKTAIL FOR PAIN. Patient orders have crisis consult. I asked him why he was refusing liquids or food and he close his eyes and refused to speak. I asked him if he was feeling suicidal and he states that Epifanio say about that. (DENISE HOUGH MD) Initial ED EKG: none Hand-Off Endorsed To: ROBERTO LOPEZ,ROBINSON De Souza Endorsed Time: 0700 Pending: consult (CRISIS) (DENISE HOUGH MD) Comments: 06/29/2016 9:09:34 AM patient signed out to me by Dr. 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 Patient's blood glucose is reading less than 50 on retesting. pt is Awake and alert and not diaphoretic. An amp of dextrose ordered and patient will be given more to eat. 06/29/2016 12:09:53 PM patient's blood sugar has stabilized but he is now requesting Imodium for stomach upset and feeling of impending diarrhea. (ROBERTO LOPEZ,ROBINSON De Souza) Departure Departure Condition: Stable Referrals: CAROL MCCORMICK MD Departure Forms: Customer Survey General Discharge Information (DENISE HOUGH MD) Departure Disposition: HOME OR SELF CARE Clinical Impression Primary Impression: Alcohol abuse Secondary Impressions: Brittle diabetes, Hyperglycemia, Hypoglycemia Additional Instructions: Monitor your blood sugar levels every 2 hours until you see your professor of pathology in follow-up this week. Maintain a good nutritional intake. Notify your primary care doctor of this emergency department visit and treatment plan. Follow-up as outlined by the senior procurement specialist for outpatient counseling. Return if any concerns or sudden worsening. Please note that there might be incidental findings in your evaluation that are unrelated to the current emergency department visit. Please notify your primary care doctor about this emergency department visit in order to obtain and review all of the testing performed so that these incidental findings can be monitored as needed. If you had an x-ray performed, please understand that some fractures may not be seen on the initial set of x-rays. If your symptoms persist you might need a repeat set of x-rays to check for such a fracture. If you had a laceration evaluated, please understand that foreign bodies such as glass or wood may not be visible to the naked eye or on plain x-rays. If the wound becomes red, swollen, increasingly more painful or if there is any drainage from the wound, please have it reevaluated by a physician for the possibility of a retained foreign body. (ROBINSON MEJIA MD) Critical Care Note Critical Care Note Critical Care Time: 30-74 min (ROBINSON MEJIA MD) Critical Care Time: 30-74 min (ROBINSON MEJIA MD) possibility of a retained foreign body. (ROBINSON MEJIA MD)
[2016-06-28 20:22] LABS: ABSOLUTE BASOPHIL COUNT 0 /CUMM (0.0-0.2); ABSOLUTE EOSINOPHIL COUNT 0.1 /CUMM (0.0-0.7); ABSOLUTE GRANULOCYTE CT 6.9 /CUMM (1.4-6.5); ABSOLUTE LYMPH COUNT 3.2 /CUMM (1.2-3.4); ABSOLUTE MONOCYTE COUNT 0.4 /CUMM (0.10-0.60); BASOPHIL % 0.4 % (0.0-2.0); EOSINOPHIL % 0.7 % (0-5); GRANULOCYTE % 64.4 % (42.2-75.2); HEMATOCRIT 44.6 % (42-52); MEAN CORPUSCULAR HGB 28.8 PG (27.0-31.0); MEAN CORPUSCULAR VOLUME 87.2 FL (80.0-94.0); MEAN PLATELET VOLUME 9.2 FL (7.4-10.4); PLATELET COUNT 295 /CUMM (130-400); RBC DISTRIBUTION WIDTH 13.9 % (11.5-14.5); RED BLOOD CELL CT 5.11 /CUMM (4.70-6.10); WHITE BLOOD CELL COUNT 10.7 /CUMM (4.8-10.8)
[2016-06-28 20:44] LABS: PTT 26 SEC (25-37)
--- NOTE | 2016-06-29 12:11 | ED PSYCH CRISIS CONSULTATION ---
Crisis Consult Basic Assessment Date of Consult: 06/29/16 Responsible Person/Accompanied By: self Insurance Authorization: Insurance #1: Insurance name: JEANCARLOS STAFFORD Phone number: Policy number: [id number] Group number: Authorization number: ED Provider: Patient's ED Provider: ROBINSON MEJIA MD Primary Care Physician: Patient's PCP: PATIENT HAS NO PRIMARY CARE DR PCP's Phone Number: Current Psychiatrist: none Chief Complaint: Abdominal Pain/Flank Pain Patient's Quote: "I'm not suicidal. I just wanted medication for my pain." Present Illness: Pt is a 35yo male who who self presented to the ED due to stomach pain. Pt is well known to ED and Psychiatry with multiple prior admits (last CPS admit was Apr 2016). Pt was requesting pain meds for his stomach pain and due to hx alcohol use he was told he could not have the narcotic pain meds (BAL WAS 250 at 20:00). Pt admits that he drinks 15-20 beers daily. Pt then refused to drink juice to stabilize his blood sugar and there was concern that he may be doing that due to SI. Upon crisis eval, pt admits that eh did that because he wanted pain meds and adamantly denies that he is suicidal. "I just got out of [facility]. I don't need to go back. If I did I would reach out for help." Pt denies that he has followed up with out pt tx, but states that he would like a list of alcohol tx programs and rehabs to follow-up with. Pt is forward thinking and states that he plans top go meet with Judy Royal for employment assistance and has potential employment set up at [employer]. Pt reports that he currently works at [employer]. Crisis also spoke to pt's girlfriend Courtney Joyner who denied having any concerns for pt's safety, but did express concern about his drinking. Case reviewed with Dr. Jean of Psychiatry who approved pt's d/ c with resources. Pt was provided with multiple lists of resources. Patient's Address: [address] [place] [address] Other Phone Number: Who Do You Live With? Other (see notes) (currently stays in a tent) Family/Informants Interviewed: Girlfriend Allergies - Coded Allergies: adhesive tape (UNKNOWN REACTION TO SURGICAL TAPE 05/13/15) tramadol (Mild, DIZZY 05/13/15) ketorolac (From TORADOL) (MUSCLE CRAMPING 01/12/16) Current Medications - Scheduled Medications Fluoxetine HCl 20 MG CAPSULE 40 MG PO 0800 depression/anxiety #28 CAP Prescribed by TIN CULLEN APRN on 05/03/16 Last Taken: At an unknown date and time Folic Acid 1 MG TABLET 1 MG PO DAILY nutrition 30 Days Prescribed by NAE SKY on 04/23/16 Last Taken: At an unknown date and time Insulin Detemir (Levemir Flextouch) 100 UNIT/ML (3 ML) INSULN.PEN 10 UNIT SC BID DM #5 (Reported) Entered as Reported by TIN CULLEN APRN on 05/03/16 1216 Lipase/Protease/Amylase (Sudheer Tavarez 5,000 Units Capsule) [id number] CAPSULE. 7 CAP PO WM pancreatic insufficiency #98 Prescribed by TIN CULLEN APRN on 05/03/16 Lipase/Protease/Amylase (Sudheer Tavarez 5,000 Units Capsule) [id number] CAPSULE. 7 CAP PO WM pancreatic insufficiency #98 Prescribed by TIN CULLEN APRN on 05/03/16 Last Taken: At an unknown date and time Omeprazole 20 MG CAPSULE. 40 MG PO DAILY AC GERD #28 Prescribed by TIN CULLEN APRN on 05/03/16 Last Taken: At an unknown date and time Scheduled PRN Medications Nicotine Polacrilex (Nicorelief) 4 MG GUM 4 MG PO Q2 HRS NEEDED PRN Tobacco cessation #30 GUM Prescribed by TIN CULLEN APRN on 05/03/16 Last Taken: At an unknown date and time Miscellaneous Medications Insulin Aspart, Recombinant (Novolog Flexpen) 100 UNIT/ML INSULN.PEN diabetes ( Reported) Entered as Reported by TIN CULLEN APRN on 05/03/16 1219 Laboratory Results: Laboratory Tests 06/28/16 2000: Anion Gap 20 H, Estimated GFR > 60, BUN/Creatinine Ratio 15.7, Glucose 305 H, Calcium 9.6, Total Bilirubin 0.6, AST 62 H, ALT 62, Alkaline Phosphatase 69, Total Protein 7.3, Albumin 4.7, Globulin 2.6, Albumin/Globulin Ratio 1.8, Lipase 18 L, PT 10.0, INR 0.95, APTT 26, CBC w Diff NO MAN DIFF REQ, RBC 5.11, MCV 87.2, MCH 28.8, RDW 13.9, MPV 9.2, Gran % 64.4, Lymphocytes % 30.3, Monocytes % 4.2, Eosinophils % 0.7, Basophils % 0.4, Absolute Granulocytes 6.9 H, Absolute Lymphocytes 3.2, Absolute Monocytes 0.4, Absolute Eosinophils 0.1, Absolute Basophils 0, PUBS MCHC 33.0, Serum Alcohol 250.0, Acetone Level NEGATIVE 06/28/161953: Urine Opiates Screen < 100.00, Methadone Screen < 40, Barbiturate Screen < 60, Ur Phencyclidine Scrn < 6.00, Amphetamines Screen 104, U Benzodiazepines Scrn < 85, Urine Cocaine Screen < 50, Urine Cannabis Screen < 5.00 Past History Past Medical History Neurological: history of TBI EENT: NONE Cardiovascular: NONE Respiratory: pulmonary embolism Gastrointestinal: pancreatitis (complicated by pseudocyst), upper GI bleed, GEOVANNY-LEMA TEAR Hepatic: NONE Renal: NONE Musculoskeletal: NONE Psychiatric: depression, substance abuse, PTSD benzodiazepine dependence suicide attempts Endocrine: diabetes Blood Disorders: PE Cancer(s): NONE 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 Psychiatric Treatment History Psych Treatment Psychiatric Treatment Yes Inpatient Treatment Yes Outpatient Treatment No Location of Treatment [place] Reason for Treatment Depression Dates of Treatment multiple Response to Treatment variable Diagnosis by History: Alcohol dependence, benzodiazepine dependence, mood disorder NOS, suicidal ideation, rule out bipolar disorder NOS, personality disorder NOS, with narcissistic traits, rule out antisocial traits. Substance Use/Abuse History Drug Use/Abuse Substances Used/Abused Yes Substance Used/Abused Alcohol First Use teens Last Used last night How much used/taken 20 beers How often daily For how long since teens Route of use po Substance Abuse Treatment Substance Abuse Treatment Past Substance Abuse TX Yes Inpatient Treatment Yes Outpatient Treatment No Location of Treatment [facility] Reason for Treatment alcohol Dates of Treatment multiple Response to Treatment variable Current Mental Status Mental Status Orientation: Person, Place, Situation Affect: WNL Speech: WNL Neuro-vegetative: WNL Appearance Appearance- Dress/Hygiene: well groomed, good eye contact Behaviors Thought Process: WNL Thought Content: WNL Memory: WNL Insight: WNL SI/HI Risk Assessment Past Suicidal Ideation/Attempts Yes Current Suicidal Ideation/Att No Past Homicidal Ideation/Att: No Current Homicidal Ideation/Attempts No Degree of Intent: None Risk Factors: SA/MH hospitalized, substance abuse, male, limited support Lethality Ratin (mild) PTSD Checklist PTSD Done? patient declined ED Management Sitter: Yes Restraints: No DSM5/PS Stressors/Medical Prob Diagnosis' (DSM 5, Stressors, Medical): unspecified Depression f32.9, alc use d/of10.20 Current GAF: 45 Departure Disposition Psych Medical Clearance Date: 06/29/16 Medically Cleared at: 1130 Time Started: 1130 Time Ended: 1200 Psychiatrist Consulted: Miranda LOPEZ,Edward Date Disposition Established: 06/29/16 Time Disposition Established: 1200 Plan for Disposition - Modality: List of resources Facility: Patient to Arrange Rationale for Disposition: pt denies SI Referrals PATIENT HAS NO PRIMARY CARE DR (PCP/Family)
[2016-06-29 12:22] VITALS: BP 116/65
== END 2016-06-29 12:48 ==
LOC: ERH 19:36
PROVIDERS: Emergency Medicine
DX: F10.10 Alcohol abuse, uncomplicated (principal); E10.65 Type 1 diabetes mellitus with hyperglycemia; E10.649 Type 1 diabetes mellitus with hypoglycemia without coma
CPT/HCPCS: 80307; 96361; 96374; 96375; G0463; G0480; J0131; J7060

== ENCOUNTER 2016-06-29 18:49 | Emergency (ER) | payer OTHER ==
[~2016-06-29] VITALS: Ht 172.7 cm; Wt 65.8 kg
[2016-06-29 20:07] LABS: ABSOLUTE BASOPHIL COUNT 0 /CUMM (0.0-0.2); ABSOLUTE EOSINOPHIL COUNT 0.1 /CUMM (0.0-0.7); ABSOLUTE LYMPH COUNT 2.3 /CUMM (1.2-3.4); ABSOLUTE MONOCYTE COUNT 0.3 /CUMM (0.10-0.60); BASOPHIL % 0.3 % (0.0-2.0); EOSINOPHIL % 1.2 % (0-5); GRANULOCYTE % 68.5 % (42.2-75.2); HEMATOCRIT 41.7 % (42-52); MEAN CORPUSCULAR HGB CONC 32.9 G/DL (33.0-37.0); MEAN CORPUSCULAR VOLUME 88.1 FL (80.0-94.0); PLATELET COUNT 236 /CUMM (130-400); RBC DISTRIBUTION WIDTH 13.5 % (11.5-14.5); RED BLOOD CELL CT 4.73 /CUMM (4.70-6.10); WHITE BLOOD CELL COUNT 8.8 /CUMM (4.8-10.8)
--- NOTE | 2016-06-29 20:07 | ED GENERAL ADULT ---
History of Present Illness General Chief Complaint: General Adult Stated Complaint: BIBA FOR HYPOGLYCEMIA, ETOH Source: patient, EMS Exam Limitations: no limitations Vital Signs & Intake/Output Vital Signs & Intake/Output Vital Signs Date Time Temp Pulse Resp B/P Pulse O2 O2 Flow FiO2 Ox Delivery Rate 06/30 2255 98.0 89 15 124/74 100 Room Air 06/30 1999 98.3 74 15 110/74 100 Room Air 06/29 1910 99 Room Air 06/29 1909 98.0 72 16 113/74 100 Room Air Allergies Coded Allergies: adhesive tape (UNKNOWN REACTION TO SURGICAL TAPE 05/13/15) tramadol (Mild, DIZZY 05/13/15) ketorolac (From TORADOL) (MUSCLE CRAMPING 01/12/16) Reconcile Medications Fluoxetine HCl 20 MG CAPSULE 40 MG PO 0800 depression/anxiety Take 2 capsules (40mg) by mouth every morning. Folic Acid 1 MG TABLET 1 MG PO DAILY nutrition Insulin Aspart, Recombinant (Novolog Flexpen) 100 UNIT/ML INSULN.PEN diabetes ( Reported) Novolog Sliding Scale Before Meals (Three times a day): 80-150 mg/dl: 6 units 151-200 mg/dl: 7 units 201-250 mg/dl: 8 units 251-300 mg/dl: 9 units 301-350 mg/dl: 10 units 351-400 mg/dl: 11 units More than 400 mg/dl: 12 units and call Novolog Sliding Scale at Bedtime: 251-300 mg/dl: 2 units 301-350 mg/dl: 3 units 351-400 mg/dl: 4 units More than 400 mg/dl: 5 units and call Insulin Detemir (Levemir Flextouch) 100 UNIT/ML (3 ML) INSULN.PEN 10 UNIT SC BID DM (Reported) Lipase/Protease/Amylase (Zenisaura Tavarez 5,000 Units Capsule) [id number] CAPSULE. 7 CAP PO WM pancreatic insufficiency Nicotine Polacrilex (Nicorelief) 4 MG GUM 4 MG PO Q2 HRS NEEDED PRN Tobacco cessation Omeprazole 20 MG CAPSULE. 40 MG PO DAILY AC GERD Triage Note: PT BIBA AFTER CALLING 911 FOR HIMSELF. PT REPORTING HE CALLED EMS "BECAUSE I WAS INTOXICATED" PT DISCHARGED FROM [facility] THIS MORNING FOR SAME. ON EMS ARRIVAL, PT'S BG 57, MEDICAETD WITH TWO TUBES ORAL GLUCOSE AND 200 CC D10 VIA 18G IN [place]ASS[place]. ON ARRIVAL TO ED, PT INTOXICATED, ALERT AND ORIENTED X4 AND BG 148. PT HAS NO MEDICAL COMPLAINTS OTHER THAN "IM INTOXICATED" Triage Nurses Notes Reviewed? yes HPI: Sotero Castellanos is a 35-year-old male with multiple medical problems including TBI, PE , and tenderness with pseudocyst formation, GI bleed, Piedad-Lema tear, PTSD/ depression/substance abuse and diabetes mellitus on insulin BIBA for hypoglycemia. Patient was just seen last night and discharged this morning for the same exact complaint. After discharge, the patient states he drank several beers as well as hard liquor. Patient states he took his insulin as prescribed. He later became diaphoretic and slightly confused so because EMS. On EMS arrival, his glucose was 57 degrees given one oral tube of glucose. Repeat glucose check was up to 65 so second tube of oral glucose was given. He then received approximately 200 mL of D10 IV. Last glucose check in route was 1:30. Patient states he did not inject any extra insulin. However, he has multiple previous presentations to this emergency department with previous witnessed injections of extra units of insulin as well as previous injections of the entire vile requiring ICU admission. Patient is currently homeless and states he has no place to stay. He would like some food at this point in time and would like to rest. Denies chest pain, shortness of breath, cough, fever chills , abdominal pain, vomiting or diarrhea. He does endorse nausea. (SHERLY LOPEZ,ANDREA) Past History Travel History Traveled to [place] past 21 day No Medical History Any Pertinent Medical History? 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 No (ANDREA DUBOIS MD) Review of Systems Review of Systems Constitutional: Reports: see HPI. EENTM: Reports: no symptoms. Respiratory: Reports: no symptoms. Cardiovascular: Reports: no symptoms. GI: Reports: no symptoms. Genitourinary: Reports: no symptoms. Musculoskeletal: Reports: no symptoms. Skin: Reports: no symptoms. Neurological/Psychological: Reports: no symptoms. Hematologic/Endocrine: Reports: no symptoms. Immunologic/Allergic: Reports: no symptoms. All Other Systems: Reviewed and Negative (ANDREA DUBOIS MD) Physical Exam Physical Exam General Appearance: well developed/nourished, no apparent distress, alert, awake , comfortable Head: atraumatic, normal appearance Eyes: Bilateral: normal appearance, PERRL, EOMI. Ears, Nose, Throat: normal pharynx, normal ENT inspection Neck: normal inspection, supple, full range of motion Respiratory: normal breath sounds, chest non-tender Cardiovascular: regular rate/rhythm, normal peripheral pulses Gastrointestinal: normal bowel sounds, soft, non-tender Back: normal inspection, normal range of motion Extremities: normal inspection, normal capillary refill, normal range of motion, no edema Neurologic/Psych: no motor/sensory deficits, awake, alert, oriented x 3, normal gait, normal mood/affect Skin: intact, normal color, warm/dry Core Measures ACS in differential dx? No CVA/TIA Diagnosis: No Severe Sepsis Present: No Septic Shock Present: No (ANDREA DUBOIS MD) Progress Differential Diagnoses I considered the following diagnoses in my evaluation of the patient: [ Intentional insulin overdose, hypoglycemia, alcoholic ketoacidosis, malingering] Plan of Care: Orders Procedure Date/time Status Add-on Test (ER Only) 06/30 1947 Active ETHANOL 06/29 1934 Complete C-PEPTIDE Ref$ 06/29 1934 Active COMPREHENSIVE METABOLIC PANEL 06/29 1934 Complete CBC WITHOUT DIFFERENTIAL 06/29 1934 Complete Laboratory Tests 06/29/161943: Serum Alcohol Cancelled 06/29/161941: C-Peptide Pending 06/29/161941: Anion Gap 12, Estimated GFR > 60, BUN/Creatinine Ratio 15.0, Glucose 179 H, Calcium 9.3, Total Bilirubin 0.5, AST 56, ALT 59, Alkaline Phosphatase 51, Total Protein 6.1 L, Albumin 3.8, Globulin 2.3, Albumin/Globulin Ratio 1.7, CBC w Diff NO MAN DIFF REQ, RBC 4.73, MCV 88.1, MCH 29.0, RDW 13.5, MPV 9.0, Gran % 68.5, Lymphocytes % 26.3, Monocytes % 3.7, Eosinophils % 1.2, Basophils % 0.3, Absolute Granulocytes 6.0, Absolute Lymphocytes 2.3, Absolute Monocytes 0.3, Absolute Eosinophils 0.1, Absolute Basophils 0, PUBS MCHC 32.9 L, Serum Alcohol 277.0 Patient is generally well-appearing. Has some mild slurred speech on examination. He endorses several beers as well as hard liquor. We'll obtain basic labs including a C-peptide to assess for injection of extra insulin. Initial glucose here in ED is within normal limits. Patient is taking juice and drinking. We will observe for several hours if blood work is within normal limits, we'll likely discharge. Labs otherwise unremarkable. Alcohol level is elevated to 277. Patient tolerated food by mouth without issues. He ate a turkey sandwich as well as some rice and juice. Repeat blood glucoses have all been normal here in the emergency department despite several hours of stay. Immediately prior to discharge, patient asked if he is being transferred to [place]. When he was told he was not, he stated "Well, what would happen if I said I was suicidal." Patient informed that the emergency Department is not a hotel to give him a place to stay while he is homeless. He is spent most the time here in ED sleeping eating and watching TV. Patient is clinically sober (ANDREA DUBOIS MD) Initial ED EKG: none (ANDREA DUBOIS MD) Departure Departure Time of Disposition: 2240 Disposition: HOME OR SELF CARE Condition: Stable Clinical Impression Primary Impression: Alcohol intoxication Qualifiers: Complication of substance-induced condition: uncomplicated Qualified Code: F10.120 - Alcohol abuse with intoxication, uncomplicated Secondary Impressions: Hypoglycemia, Malingering Referrals: PATIENT HAS NO PRIMARY CARE DR (PCP/Family) Additional Instructions: You can follow-up with her primary care doctor as needed. Do not injected extra insulin when is not indicated. Make sure you eat after you inject insulin. Departure Forms: Customer Survey General Discharge Information (SHERLY LOPEZ,ANDREA) PA/HAND RUG BRAIDER Co-Sign Statement Statement: ED Attending supervision documentation- [] I saw and evaluated the patient. I have also reviewed all the pertinent lab results and diagnostic results. I agree with the findings and the plan of care as documented in the PA's/HAND RUG BRAIDER's documentation. [X] I have reviewed the ED Record and agree with the PA's/HAND RUG BRAIDER's documentation. [] Additions or exceptions (if any) to the PAs/HAND RUG BRAIDER's note and plan are summarized below: [] (KUNAL LOPEZ,WENCESLAO Fernando) Critical Care Note Critical Care Note Critical Care Time: non-applicable (SHERLY LOPEZ,ANDREA)
[2016-06-29 22:56] VITALS: BP 124/74
== END 2016-06-29 22:57 ==
LOC: ERH 18:49
PROVIDERS: Emergency Medicine
DX: F10.129 Alcohol abuse with intoxication, unspecified (principal); E11.649 Type 2 diabetes mellitus with hypoglycemia without coma; Z79.4 Long term (current) use of insulin; Z76.5 Malingerer [conscious simulation]
CPT/HCPCS: G0480

== ENCOUNTER 2016-06-30 00:26 | Inpatient (IN) | payer OTHER ==
[~2016-06-30] VITALS: Ht 175.3 cm; Wt 67.3 kg
--- NOTE | 2016-06-30 00:39 | NUR ---
35YO MALE TO [place] [facility] BED VIA [facility] [place] SP FOUND W/COR AROUND HIS NECK STATING "I'M SUICIDAL" PT WAS PT HERE ON 06/28,06/29 AND WAS DCED AFTER CRISIS EVAL AT 0 ALSO STATES "HE NEEDS A RIDE TO [place] AND PLEASE TRANSFER ME TO [facility]" ON 06/29.
--- NOTE | 2016-06-30 00:40 | NUR ---
CHANGED INTO BLUE SCRUBS. COOPERATIVE AT THIS TIME. NO MARKINGS PRESENT ON NECK.
--- NOTE | 2016-06-30 00:41 | NUR ---
SECURITY AT BEDSIDE AND PT'S DUFFLE BAG CHECKED BY THEM AND ELIOT ZUÑIGA. NO INSULIN PEN OR MEDS FOUND. BAG LOCKED IN CLOSET.
--- NOTE | 2016-06-30 00:43 | ED PSYCHIATRIC COMPLAINT ---
History of Present Illness General Chief Complaint: Psychiatric Related Complaint Stated Complaint: BIBA +SI Source: patient, old records, EMS, police Exam Limitations: no limitations Vital Signs & Intake/Output Vital Signs & Intake/Output Vital Signs Date Time Temp Pulse Resp B/P Pulse O2 O2 Flow FiO2 Ox Delivery Rate 06/30 1155 96.9 80 18 111/65 96 Room Air 06/30 0815 97.1 80 18 110/69 97 Room Air 06/30 0610 97.2 81 18 113/58 97 Room Air 06/30 0043 98 Room Air 06/30 0040 96.6 84 16 103/62 98 Room Air Allergies Coded Allergies: adhesive tape (UNKNOWN REACTION TO SURGICAL TAPE 05/13/15) tramadol (Mild, DIZZY 05/13/15) ketorolac (From TORADOL) (MUSCLE CRAMPING 01/12/16) Reconcile Medications Fluoxetine HCl 20 MG CAPSULE 40 MG PO 0800 depression/anxiety Take 2 capsules (40mg) by mouth every morning. Folic Acid 1 MG TABLET 1 MG PO DAILY nutrition Insulin Aspart, Recombinant (Novolog Flexpen) 100 UNIT/ML INSULN.PEN diabetes ( Reported) Novolog Sliding Scale Before Meals (Three times a day): 80-150 mg/dl: 6 units 151-200 mg/dl: 7 units 201-250 mg/dl: 8 units 251-300 mg/dl: 9 units 301-350 mg/dl: 10 units 351-400 mg/dl: 11 units More than 400 mg/dl: 12 units and call Novolog Sliding Scale at Bedtime: 251-300 mg/dl: 2 units 301-350 mg/dl: 3 units 351-400 mg/dl: 4 units More than 400 mg/dl: 5 units and call Insulin Detemir (Levemir Flextouch) 100 UNIT/ML (3 ML) INSULN.PEN 10 UNIT SC BID DM (Reported) Lipase/Protease/Amylase (Zenpep 5,000 Units Capsule) [id number] CAPSULE. 7 CAP PO WM pancreatic insufficiency Nicotine Polacrilex (Nicorelief) 4 MG GUM 4 MG PO Q2 HRS NEEDED PRN Tobacco cessation Omeprazole 20 MG CAPSULE. 40 MG PO DAILY AC GERD Triage Note: 35YO MALE TO [facility] C BED VIA [facility] [place] W/COR AROUND HIS NECK STATING "I'M SUICIDAL" PT WAS PT HERE ON 06/28,06/29 AND WAS DCED AFTER CRISIS EVAL AT 2240 ALSO STATES "HE NEEDS A RIDE TO [facility] AND PLEASE TRANSFER ME TO [facility]" ON 06/29. Triage Nurses Notes Reviewed? yes HPI: This is patient's third visit here over the past 2 days. The patient was discharged approximately one half hour prior to the arrival to the emergency department. [place] was at [place] when he put a cord around his neck and threatened to hang himself. Police and EMS were called and patient was brought in. During his last visit patient wanted to be transferred [facility]. Patient blood work was normal except he was intoxicated. While the patient was being discharged he stated that he was, states that he wanted to kill himself so therefore we would have to keep him in transfer him [facility]. (KUNAL LOPEZ,WENCESLAO Fernando) Past History Travel History Traveled to [place] past 21 day No Medical History Any Pertinent Medical History? 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 No (KUNAL LOPEZ,WENCESLAO Fernando) Review of Systems Review of Systems Constitutional: Reports: no symptoms. EENTM: Reports: no symptoms. Respiratory: Reports: no symptoms. Cardiovascular: Reports: no symptoms. GI: Reports: no symptoms. Genitourinary: Reports: no symptoms. Musculoskeletal: Reports: no symptoms. Skin: Reports: no symptoms. Neurological/Psychological: Reports: see HPI, depressed. Hematologic/Endocrine: Reports: no symptoms. Immunologic/Allergic: Reports: no symptoms. All Other Systems: Reviewed and Negative (KUNAL LOPEZ,WENCESLAO Fernando) Physical Exam Physical Exam General Appearance: well developed/nourished, mild distress Head: atraumatic Eyes: Bilateral: PERRL, EOMI. Ears, Nose, Throat: normal pharynx, normal ENT inspection, hearing grossly normal Neck: normal inspection, supple, CORD ABRASION AROUND NECK Respiratory: normal breath sounds Cardiovascular: regular rate/rhythm Gastrointestinal: soft, non-tender Extremities: normal range of motion Neurological/Psychiatric: no motor/sensory deficits, awake, alert, calm, oriented x 3 Appearance/Memory/Insight: appropriate appearance, appropriate insight Behavoir/Eye Contact/Speech: cooperative, normal speech, good eye contact Thoughts/Hallucinations: normal thought pattern, no apparent hallucination Skin: intact, normal color, warm/dry SAD PERSONS Done? CRISIS CONSULT OBTAINED (KUNAL LOPEZ,WENCESLAO Fernando) Progress Differential Diagnosis: drug intoxication, drug overdose, drug withdrawal, electrolyte abnormality Plan of Care: Orders Procedure Date/time Status Consistent Carbohydrate 2 06/30 D Active Consistent Carbohydrate 1 06/30 B Complete Continuous Observation Monitor 06/30 1900 Active Continuous Observation Monitor 06/30 1500 Active Patient Data - inpatient psych 06/30 1102 Active Admit to inpatient psych 06/30 1102 Active Pathway - chart 06/30 1101 Active Continuous Observation Monitor 06/30 1100 Active CIWA 06/30 1024 Active Continuous Observation Monitor 06/30 0700 Active Continuous Observation Monitor 06/30 0145 Active ED CRISIS PSYCH CONSULT 06/30 0145 Active URINE DRUGS OF ABUSE 06/30 0042 Complete Vital Signs 06/30 UNK Active Nursing Misc 06/30 UNK Active CIWA 06/30 UNK Active Alternative Nursing Therapy 06/30 UNK Active Activity/Ambulation 06/30 UNK Active PHYSICIAN CONSULT 06/30 UNK Active Current Medications Sig/Alejandrina Start time Last Medication Dose Stop Time Status Admin Lorazepam 0.5 MG ONCE 07/05 0000 UNVr (Ativan) 07/05 0001 Lorazepam 0.5 MG Q6H 07/04 0000 UNVr (Ativan) 07/04 1801 Lorazepam 0.5 MG ONCE ONE 07/03 1800 UNVr (Ativan) 07/03 1801 Lorazepam 1 MG Q6H 07/03 0000 UNVr (Ativan) 07/03 1201 Lorazepam 1.5 MG Q12H 07/02 0600 UNVr (Ativan) 07/02 1801 Lorazepam 1 MG Q12H 07/02 0000 UNVr (Ativan) 07/02 1201 Omeprazole 20 MG DAILY AC 07/01 0700 UNVr (Prilosec) Lorazepam 1.5 MG Q6 07/01 0600 UNVr (Ativan) 07/01 1801 Melatonin 5 MG AT BEDTIME 06/30 2200 UNVr (Melatonin) Lorazepam 2 MG Q6 06/30 1200 UNVr (Ativan) 07/01 0001 Lorazepam 2 MG Q2P PRN 06/30 1100 UNVr (Ativan) Lorazepam 1 MG Q2P PRN 06/30 1100 UNVr (Ativan) Laboratory Tests 06/30/16 0047: Urine Opiates Screen < 100.00, Methadone Screen < 40, Barbiturate Screen < 60, Ur Phencyclidine Scrn < 6.00, Amphetamines Screen < 100, U Benzodiazepines Scrn < 85, Urine Cocaine Screen < 50, Urine Cannabis Screen < 5.00 Hand-Off Endorsed To: DELGADO WORTHINGTON MD Endorsed Time: 0700 Pending: consult (CRISIS) (KUNAL LOPEZ,WENCESLAO Fernando) Departure Departure Disposition: STILL A PATIENT Condition: Stable Clinical Impression Primary Impression: Depression Referrals: PATIENT HAS NO PRIMARY CARE DR (PCP/Family) Departure Forms: Customer Survey General Discharge Information (KUNAL LOPEZ,WENCESLAO Fernando) Psych Admission Note Psychiatric Admission: I have seen and evaluated MIRNAJOSE Ma. I have also reviewed all the pertinent lab results and diagnostic results. JOSE GUPTA will be admitted to our inpatient Psychiatric unit for treatment and care. (DELGADO WORTHINGTON MD)
--- NOTE | 2016-06-30 00:49 | NUR ---
BREATHLYZED 0.00 URINE SPEC OBTAINED AND SENT TO LAB.
--- NOTE | 2016-06-30 02:00 | NUR ---
SLEEPING IN [facility] D BED SITTER AT BEDSIDE.
--- NOTE | 2016-06-30 06:00 | NUR ---
AWAKENED FOR VS COOPERATIVE. FSBS = 337. VOICING HE "REALLY ISN'T SUICIDAL. I NEED HELP TO STOP MY DRINKING"
--- NOTE | 2016-06-30 07:50 | NUR ---
PT RESTING ON STRETCHER WITH EQUAL CHEST RISE AND FALL NOTED SITTER IN PLACE FOR SAFETY/OBSERVATION AWAITING CRISIS DISPO TODAY
--- NOTE | 2016-06-30 08:44 | NUR ---
C/O HEADACHE, AND "WOULD LIKE ATIVAN". MD WORTHINGTON INFORMED OF SAME
--- NOTE | 2016-06-30 09:15 | NUR ---
PT RESTING ON STRETCHER. NO ACUTE DISTRESS NOTED. SITTER AT BEDSIDE FOR PT SAFETY.
--- NOTE | 2016-06-30 10:29 | ED PSY CRISIS COLLATERAL NOTE ---
Collateral Note Collateral Note Family/Inform/Buzz Contacts: Evin Mcconnell Pt's ICM from [facility] called to collaborate for continuity of care. she is aware that this is pt's 3rd time in ED in 24 hours. she is also aware that he is at [facility] frequently. She informed that he does the same thing at [facility] and that they held a case conference on him and decided that if he returned there again that he would be probated to treatment. She reports that pt has poor follow through on his tx. He is very manipulative, He does not take responsibility. he is non-compliant with his diabetes tx and often uses it as a suicidal gesture. She expressed there is great concern for his safety and recommends that [facility] also consider probating him to tx. She would like to updated on pt's final dispo. (REBEKAH PASCUAL,GEOVANY) Collateral Note Family/Inform/Buzz Contacts: Crisis called Evin Lorenz from [facility] to update her on the dispo for pt. Informed her that pt would be admitted to [facility]. She is requesting that the inpatient social work associate contact her. (VICKY PASCUAL,WILMER)
--- NOTE | 2016-06-30 10:47 | ED PSYCH CRISIS CONSULTATION ---
Crisis Consult Basic Assessment Date of Consult: 06/30/16 Responsible Person/Accompanied By: self Insurance Authorization: Insurance #1: Insurance name: JEANCARLOS STAFFORD Phone number: Policy number: [id number] Group number: Authorization number: ED Provider: Patient's ED Provider: WENCESLAO SYED MD Primary Care Physician: Patient's PCP: PATIENT HAS NO PRIMARY CARE DR PCP's Phone Number: Current Psychiatrist: NONE Chief Complaint: Psychiatric Related Complaint Patient's Quote: "I need help" Present Illness: Pt is a 35 year old male who presents in the ED for the 3rd time in 24 hours. Pt was BIBA after he was found at [facility] with a cord wrapped around his neck. This was approximately 30 minutes after he was discharged from [facility]'s ED. Pt's first visit to the ED was on 06/28/16 at 10 p.m. He presented with a BAL of 250. He was seen by crisis on 06/29/16 and discharged with recommendations to follow through with alcohol detox/rehab services. Pt returned to the ED later in the day on 06/29/16 after he called 911 himself because he was intoxicated. Upon arrival to the ED he complained of stomach pain due to his alcohol consumption. His BAL was 277 and his blood sugar level was high. He was not seen by crisis this ED visit. Per chart, he was discharged after several hours with recommendations to follow up with his primary care physican and instructed to not inject more insulin than required based on his blood sugar levels. Pt has a long history of visits to [facility] and [facility] for medical and psychiatric related complaints. He has been hospitalized both medically and psychiatrically. He has reported 3 previouso suicide attempts prior to this most recent one. He reports he has cut his wrists, tried to hang himself and put a gun into his mouth. His last inpatient hospitalization was Apr 2016. Patient was discharged with referrals to [facility] for substance abuse treatment, Dr. Hansen (Endrocrinologist) and smoking cessation group. Patient did not follow through with any of these recommendations. Pt would not provide any answer as to why he did not follow up. He reported he did see his GI doctor, Dr. Day. He reports he had an MRI for his pancreatitis and "there's nothing new". Pt reports that he has been drinking daily for approximately 1 month. He reports he drinks approximately 1/5 of hard alochol on a daily basis. He reports he has been drinking for over 20 years. He denies any current illicit drug use. He reports a history of marijuana, cocaine, estacy, and acid use. He currently smoke 1/2 pack of cigarettes per day. He denies current legal involvement but was incarcerated in 2000. He reports he was on the mental health block the entire time. He reports he was in therapy while in [place] and was prescribed Seroquel, Prozac and something to help him sleep. He remembers they were all helpful. Pt reports he is currently unemployed and has been since 2016 when he left his job at [employer]. He reports hew as living off his tax refund but that is now gone. Pt is seeking admission because he does not feel safe out in the world. He believes that if he is discharged again, he will kill himself. Crisis consulted Dr. Sherwood. Patient will be admitted to [facility]. Patient's Address: [address] [place] [address] Other Phone Number: Who Do You Live With? Friend Family/Informants Interviewed: Crisis spoke to [facility] from [place], see note Allergies - Coded Allergies: adhesive tape (UNKNOWN REACTION TO SURGICAL TAPE 05/13/15) tramadol (Mild, DIZZY 05/13/15) ketorolac (From TORADOL) (MUSCLE CRAMPING 01/12/16) Current Medications - Scheduled Medications Fluoxetine HCl 20 MG CAPSULE 40 MG PO 0800 depression/anxiety #28 CAP Prescribed by TIN CULLEN APRN on 05/03/16 Folic Acid 1 MG TABLET 1 MG PO DAILY nutrition 30 Days Prescribed by NAE SKY on 04/23/16 Insulin Detemir (Levemir Flextouch) 100 UNIT/ML (3 ML) INSULN.PEN 10 UNIT SC BID DM #5 (Reported) Entered as Reported by TIN CULLEN APRN on 05/03/16 1216 Last Taken: At an unknown date and time Lipase/Protease/Amylase (Sudheer Tavarez 5,000 Units Capsule) 5K-17K-27K CAPSULE. 7 CAP PO WM pancreatic insufficiency #98 Prescribed by TIN CULLEN APRN on 05/03/16 Omeprazole 20 MG CAPSULE. 40 MG PO DAILY AC GERD #28 Prescribed by TIN CULLEN APRN on 05/03/16 Scheduled PRN Medications Nicotine Polacrilex (Nicorelief) 4 MG GUM 4 MG PO Q2 HRS NEEDED PRN Tobacco cessation #30 GUM Prescribed by TIN CULLEN APRN on 05/03/16 Miscellaneous Medications Insulin Aspart, Recombinant (Novolog Flexpen) 100 UNIT/ML INSULN.PEN diabetes ( Reported) Entered as Reported by TIN CULLEN APRN on 05/03/16 1219 Last Taken: At an unknown date and time Laboratory Results: Laboratory Tests 06/30/16 0047: Urine Opiates Screen < 100.00, Methadone Screen < 40, Barbiturate Screen < 60, Ur Phencyclidine Scrn < 6.00, Amphetamines Screen < 100, U Benzodiazepines Scrn < 85, Urine Cocaine Screen < 50, Urine Cannabis Screen < 5.00 Past History Past Medical History Neurological: history of TBI EENT: NONE Cardiovascular: NONE Respiratory: pulmonary embolism Gastrointestinal: pancreatitis (complicated by pseudocyst), upper GI bleed, PIEDAD-LEMA TEAR Hepatic: NONE Renal: NONE Musculoskeletal: NONE Psychiatric: alcohol dependence, depression Endocrine: diabetes Blood Disorders: PE Cancer(s): NONE MILLER KILN DRIED SALT/Reproductive: NONE Past Surgical History Surgical History: IVC filter placement GREY IN R LEG R SCAPULA REPAIR Psychosocial History Strengths/Capabilities: agrees to voluntary admission to [facility], wants treatment Physical Limitations (Interventions): Patient has several serious medical issues. Psychiatric Treatment History Psych Treatment 1 Psychiatric Treatment Yes Inpatient Treatment Yes Location of Treatment [facility], [facility] Reason for Treatment SI/ ETOH Abuse Dates of Treatment multiple, most recent 2016 @ Response to Treatment poor- relapses often does not follow through with discharge recommendations Psych Treatment 2 Psychiatric Treatment No Diagnosis by History: Alcohol dependence, benzodiazepine dependence, rule out bipolar disorder NOS, personality disorder NOS, with narcissistic traits, rule out antisocial traits. Substance Use/Abuse History Drug Use/Abuse 1 Substances Used/Abused Yes Substance Used/Abused Alcohol First Use 20+ years ago Last Used 06/29/16 How much used/taken a litte more than a fifth of hard alcohol How often daily For how long daily for the last month, but has been drinking for 20+ years Route of use oral Drug Use/Abuse 2 Substances Used/Abused Yes Substance Used/Abused Nicotine First Use unk Last Used 06/29/16 How much used/taken 1/2 pack per day How often daily For how long long time Route of use inhale Drug Use/Abuse 3 Substances Used/Abused Yes Substance Used/Abused Cocaine First Use unk Last Used long time ago How much used/taken unk How often unk For how long unk Route of use nasal Drug Use/Abuse 4 Substances Used/Abused Yes Substance Used/Abused Hallucinogens First Use unk Last Used unk How much used/taken not reported How often unk For how long unk Route of use oral Substance Abuse Treatment Substance Abuse Treatment Past Substance Abuse TX Yes Inpatient Treatment Yes Outpatient Treatment No Location of Treatment [facility] Reason for Treatment alcohol & benzo detox Dates of Treatment 2016, 2015, 2014, 2012, 2010 Response to Treatment poor, chronic relapse Current Mental Status Mental Status Orientation: Person, Place, Situation Affect: Appropriate Speech: Normal Neuro-vegetative: WNL Appearance Appearance- Dress/Hygiene: patient presents in hospital issued paper scrubs. He has some tattoos and a goatee. Behaviors Thought Process: WNL Thought Content: WNL Memory: WNL Insight: Fair SI/HI Risk Assessment Past Suicidal Ideation/Attempts Yes Current Suicidal Ideation/Att Yes Past Homicidal Ideation/Att: No Current Homicidal Ideation/Attempts No Degree of Intent: attempt made on 06/29/16 Danger To: Self Gravely Disabled: Poor Impulse Control, Poor Judgment Risk Factors: access to lethal means, chronic/serious med cond., history of suicide atmpts, SA/MH hospitalized, substance abuse, poor impulse control, male, limited support, poor follow through with discharge recommendations Lethality Ratin PTSD Checklist PTSD Done? patient declined ED Management Sitter: Yes Restraints: No DSM5/PS Stressors/Medical Prob Diagnosis' (DSM 5, Stressors, Medical): F32.9 Unspecified Depression F10.20 Alcohol Use Disorder, Severe Diabetes Pancreatitis Piedad-Lema Tear IVC Filter Replacement in Right Leg TBI, history Unemployed Current GAF: 20 Departure Disposition Psych Medical Clearance Date: 06/30/16 Medically Cleared at: 1000 Time Started: 1000 Time Ended: 1020 Psychiatrist Consulted: Kayode Sherwood MD Date Disposition Established: 06/30/16 Time Disposition Established: 1100 Plan for Disposition - Modality: Inpatient Psychiatry Facility: [facility] Rationale for Disposition: Pt presented in the ED 3x in the past 24 hours. Pt was BIBA after he was found at [facility] with a cord wrapped around his neck. Pt reports he doesn't feel safe discharging from ED. He has requested inpatient treatment. Type of IP Admission: Voluntary Referrals PATIENT HAS NO PRIMARY CARE DR (PCP/Family)
--- NOTE | 2016-06-30 11:38 | NUR ---
MED WITH TYLENOL PER MAR FOR C/O HEADACHE.
--- NOTE | 2016-06-30 11:56 | NUR ---
MED WITH 1000 MEDS, INCLUDING PRN DOSE NICOTINE GUM PER REQUEST PT NOT GIVEN ATIVAN HE IS NOT EXHIBITING ANY SIGNS WITHDRAWAL. DENIES ANY COMPLAINTS AND IS CALM/COOPERATIVE; DENIES ANXIETY; NO TREMOR NOTED SPOKE WITH MD WORTHINGTON - NO ATIVAN GIVEN AT THIS TIME PT AWARE OF PENDING ADMISSION AND REMAINS [facility]
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
--- NOTE | 2016-06-30 12:30 | NUR ---
REPORT GIVEN TO CPS NURSE. AWARE PTS FINGERSTICK 1115 WHICH DOES NOT REQUIRE SLIDING SCALE COVERAGE PT REMAINS AWAKE, ALERT AND PLEASANT WITH NO COMPLAINTS OFFERED POLITE IN CONVERSATION. 2 BELONGINGS BAGS, 1 DUFFEL BAG AND 1 VALUABLES BAG REMOVED FOR TRANSPORT TRANSPORT CALLED
[2016-06-30 12:41] VITALS: BP 123/69
--- NOTE | 2016-06-30 13:30 | NUR ---
PT REPORTS MOTIVATION FOR HELP, "I ALWAYS COME HERE AND JOKE AROUND BUT THIS TIME I REALLY WANT HELP" AND IS TEARFUL DURING THIS STATEMENT, WHEN ASKED DIRECTLY DENIES SI/HI/HALLUCINATIONS AND FEELS COMFORTABLE AND SAFE HERE, CALM, COOPERATIVE, PLEASANT AND RESPECTFUL. BLOOD SUGAR AT LUNCH TIME IN THE ED = 115 THEREFORE COVERAGE NOT PROVIDED, VSS, CIWA Q2ATC. DR. JIMÉNEZ JUST COMPLETED H&P AND ADVISED PER DR. REDDY FOR HOD TO ORDER CREAON, SLIDING SCALE AND DR. REDDY AWARE OF CONSULT. SKIN THAT IS VISIBLE IS CLEAN , DRY AND INTACT AND AREAS THAT ARE NOT VISIBLE PT DENIES ANY ALTERATIONS. MOOD IS OVERALL STABLE WITH FULL RANGE AFFECT.
--- NOTE | 2016-06-30 13:37 | History & Physical ---
General Information and HPI MD Statement: I have seen and personally examined JOSE GUPTA and documented this H&P. The patient is a 35 year old M who presented with a patient stated chief complaint of Suicide attempt. Source of Information: patient Exam Limitations: no limitations History of Present Illness: 35 y/o M with pmh sig for Ch pancreatitis, pseudocysyt, alcohol dependence, depression, diabetes, whois admitted to [facility] 04/22 to suicide attmept. patient claims that he was feeling very deprssed and just could not take it any more. He tried to wrap a cord around his neck. he has a hx of ch pancreatitis and ch abd pain.he still drinks alcohol he takes Creon. he has not been taking hi levemir and just taking his novolog. he currently denies any n/v/fevers, chills. he claims that he does not take any psychmedicatiosn on regular basis and does not see a psychiatrist on out patient basis. Allergies/Medications Allergies: Coded Allergies: adhesive tape (UNKNOWN REACTION TO SURGICAL TAPE 05/13/15) tramadol (Mild, DIZZY 05/13/15) ketorolac (From TORADOL) (MUSCLE CRAMPING 01/12/16) Home Med list Fluoxetine HCl 20 MG CAPSULE 40 MG PO 0800 depression/anxiety Take 2 capsules (40mg) by mouth every morning. Folic Acid 1 MG TABLET 1 MG PO DAILY nutrition Insulin Aspart, Recombinant (Novolog Flexpen) 100 UNIT/ML INSULN.PEN diabetes ( Reported) Novolog Sliding Scale Before Meals (Three times a day): 80-150 mg/dl: 6 units 151-200 mg/dl: 7 units 201-250 mg/dl: 8 units 251-300 mg/dl: 9 units 301-350 mg/dl: 10 units 351-400 mg/dl: 11 units More than 400 mg/dl: 12 units and call Novolog Sliding Scale at Bedtime: 251-300 mg/dl: 2 units 301-350 mg/dl: 3 units 351-400 mg/dl: 4 units More than 400 mg/dl: 5 units and call Insulin Detemir (Levemir Flextouch) 100 UNIT/ML (3 ML) INSULN.PEN 10 UNIT SC BID DM (Reported) Lipase/Protease/Amylase (Sudheer Tavarez 5,000 Units Capsule) [id number] CAPSULE. 7 CAP PO WM pancreatic insufficiency Nicotine Polacrilex (Nicorelief) 4 MG GUM 4 MG PO Q2 HRS NEEDED PRN Tobacco cessation Omeprazole 20 MG CAPSULE. 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 Home Who Do You Live With? friends Services at Home: None Primary Language: Belarusian ETOH Use: heavy use Illicit Drug Use: denies illicit drug use Functional Ability ADLs Independent: dressing, eating, toileting, bathing. Ambulation: independent IADLs Independent: shopping, housework, finances, food prep, telephone, transportation , medication admin. Review of Systems Review of Systems Constitutional: Reports: see HPI. EENTM: Reports: see HPI. Cardiovascular: Reports: see HPI. Respiratory: Reports: see HPI. GI: Reports: see HPI. Genitourinary: Reports: see HPI. Musculoskeletal: Reports: see HPI. Skin: Reports: see HPI. Neurological/Psychological: Reports: see HPI. Exam & Diagnostic Data Last 24 Hrs of Vital Signs/I&O Vital Signs Date Time Temp Pulse Resp B/P Pulse O2 O2 Flow FiO2 Ox Delivery Rate 06/30 1241 78 123/69 06/30 1155 96.9 80 18 111/65 96 Room Air 06/30 0815 97.1 80 18 110/69 97 Room Air 06/30 0610 97.2 81 18 113/58 97 Room Air 06/30 0043 98 Room Air 06/30 0040 96.6 84 16 103/62 98 Room Air Intake & Output 06/30 1600 06/30 0800 06/30 0000 Intake Total Output Total Balance Patient 148 lb 170 lb Weight Physical Exam General Appearance Alert, Oriented X3, Cooperative Skin No Rashes HEENT PERRLA Neck Supple Cardiovascular Regular Rate, Normal S1, Normal S2 Lungs Clear to Auscultation Abdomen Normal Bowel Sounds, Soft, Mildly tender in epigastric region Neurological Cranial Nerves II through XII: intact Last 24 Hrs of Labs/Judson: Laboratory Tests 06/30 0047 Toxicology Urine Opiates Screen (>2000 NG/ML) < 100.00 Methadone Screen (>300 NG/ML) < 40 Barbiturate Screen (>200 NG/ML) < 60 Ur Phencyclidine Scrn (>25 NG/ML) < 6.00 Amphetamines Screen (>1000 NG/ML) < 100 U Benzodiazepines Scrn (>200 NG/ML) < 85 Urine Cocaine Screen (>300 NG/ML) < 50 Urine Cannabis Screen (>50 NG/ML) < 5.00 Assessment/Plan Assessment: 35-year-old male with past medical history significant for depression, alcohol use, chronic pancreatitis and chronic abdominal pain, diabetes which is insulin- dependent who is admitted to Inpatient Psychiatry the suicide attempt. I will restart his insulin sliding scale. Endocrinology consult has been called. Patient should be started on Levemir per endocrinology recommendations and sliding scale insulin per Dr. Rojas's recommendations. I will resume his Creon. Psych management up to psychiatry. Patient is a current smoker therefore I would also order nicotine patch and nicotine gum for him. Patient is already on a PPI. As Ranked By This Provider Problem List: 1. Pancreatitis 2. Alcohol abuse 3. Suicide attempt 4. Epigastric pain Miscellaneous Miscellaneous Documentation Attending Case Discussed With: Linda Gomez MD. 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
--- NOTE | 2016-06-30 14:54 | NUR ---
COMPLAINING OF ANXIETY,JITTERS, DIAPHORETIC REQUESTING ATIVAN, TAPERING DOSE OF ATIVAN DUE AT 12 NOON WAS NOT GIVEN IN ED. NOON DOSE COULD NOT BE NOTED LATE SO CIWA DOSE USED TO CHART ATIVAN 2 MG GIVEN AT 245.
--- NOTE | 2016-06-30 15:03 | Cons- Endocrinology ---
General Information and HPI Consulting Request Date of Consult: 06/30/16 Requested By: Howard Reason for Consult: management of DM type 1 Source of Information: patient, old records Exam Limitations: no limitations History of Present Illness: This 35-year-old male with a known history of type 1 diabetes and depression, was admitted for major depression disorder and suicidal attempts. He lost 30 pounds because he has been having chronic abdominal pain due to chronic pancreatitis. However, in ER, his ETOH level was still > 200. I was asked to see him for management of DM. He stated that he was on Levemir 26 units daily and Novolog before meals. But he hasn't been eating well. This morning at 6 am, he received Levemir 14 units in ER. FSG before lunch was 115. Allergies/Medications Allergies: Coded Allergies: adhesive tape (UNKNOWN REACTION TO SURGICAL TAPE 05/13/15) tramadol (Mild, DIZZY 05/13/15) ketorolac (From TORADOL) (MUSCLE CRAMPING 01/12/16) Home Med List: Fluoxetine HCl 20 MG CAPSULE 40 MG PO 0800 depression/anxiety Take 2 capsules (40mg) by mouth every morning. Folic Acid 1 MG TABLET 1 MG PO DAILY nutrition Insulin Aspart, Recombinant (Novolog Flexpen) 100 UNIT/ML INSULN.PEN diabetes ( Reported) Novolog Sliding Scale Before Meals (Three times a day): 80-150 mg/dl: 6 units 151-200 mg/dl: 7 units 201-250 mg/dl: 8 units 251-300 mg/dl: 9 units 301-350 mg/dl: 10 units 351-400 mg/dl: 11 units More than 400 mg/dl: 12 units and call Novolog Sliding Scale at Bedtime: 251-300 mg/dl: 2 units 301-350 mg/dl: 3 units 351-400 mg/dl: 4 units More than 400 mg/dl: 5 units and call Insulin Detemir (Levemir Flextouch) 100 UNIT/ML (3 ML) INSULN.PEN 10 UNIT SC BID DM (Reported) Lipase/Protease/Amylase (Zenpep 5,000 Units Capsule) [id number]-27K CAPSULE. 7 CAP PO WM pancreatic insufficiency Nicotine Polacrilex (Nicorelief) 4 MG GUM 4 MG PO Q2 HRS NEEDED PRN Tobacco cessation Omeprazole 20 MG CAPSULE.DR 40 MG PO DAILY AC GERD Review of Systems Review of Systems Constitutional: Reports: see HPI. Cardiovascular: Denies: chest pain. Respiratory: Denies: short of breath. GI: Reports: abdominal pain. Hematologic/Endocrine: Denies: polyuria, polydipsia. 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 Home Who Do You Live With? friends Services at Home: None Primary Language: Sudanese ETOH Use: heavy use Illicit Drug Use: denies illicit drug use Functional Ability ADLs Independent: dressing, eating, toileting, bathing. Ambulation: independent IADLs Independent: shopping, housework, finances, food prep, telephone, transportation , medication admin. Exam & Diagnostic Data Last 24 Hrs of Vital Signs/I&O Vital Signs Date Time Temp Pulse Resp B/P Pulse O2 O2 Flow FiO2 Ox Delivery Rate 06/30 1241 78 123/69 06/30 1155 96.9 80 18 111/65 96 Room Air 06/30 0815 97.1 80 18 110/69 97 Room Air 06/30 0610 97.2 81 18 113/58 97 Room Air 06/30 0043 98 Room Air 06/30 0040 96.6 84 16 103/62 98 Room Air Intake & Output 06/30 1600 06/30 0800 06/30 0000 Intake Total Output Total Balance Patient 148 lb 170 lb Weight Physical Exam General Appearance: anxious Neck: normal inspection Respiratory: lungs clear Cardiovascular: tachycardia Gastrointestinal: tenderness (at epigastric area) Extremities: no edema Labs/Judson Results: Laboratory Tests 06/30 0047 Toxicology Urine Opiates Screen (>2000 NG/ML) < 100.00 Methadone Screen (>300 NG/ML) < 40 Barbiturate Screen (>200 NG/ML) < 60 Ur Phencyclidine Scrn (>25 NG/ML) < 6.00 Amphetamines Screen (>1000 NG/ML) < 100 U Benzodiazepines Scrn (>200 NG/ML) < 85 Urine Cocaine Screen (>300 NG/ML) < 50 Urine Cannabis Screen (>50 NG/ML) < 5.00 Assessment/Plan Assessment/Plan 35-year-old male with a known history of type 1 diabetes and depression, was admitted for major depression disorder and suicidal attempts. He lost 30 pounds because he has been having chronic abdominal pain due to chronic pancreatitis. However, in ER, his ETOH level was still > 200. I was asked to see him for management of DM. He received Levemir 14 units this am in ER. 1. Levemir 7 units twice a day starting tomorrow; 2. adjust Novolog coverage before meals and add Novolog coverage at bedtime-- detail see the inpatient insulin orders; 3. monitor FSGs; 4. check TFT; will follow. Inpatient Diabetes Orders Before Each Meal: Bolus Insulin: Novolog < 80 mg/dl: no coverage 80-100 mg/dl: 3 units 101-120 mg/dl: 3 units 121-150 mg/dl: 3 units 151-200 mg/dl: 4 units 201-250 mg/dl: 5 units 251-300 mg/dl: 6 units 301-350 mg/dl: 7 units 351-400 mg/dl: 8 units > 400 mg/dl: 9 units Bedtime: Bolus Insulin: Novolog < 80 mg/dl: no coverage 80-100 mg/dl: no coverage 101-120 mg/dl: no coverage 121-150 mg/dl: no coverage 151-200 mg/dl: no coverage 201-250 mg/dl: no coverage 251-300 mg/dl: 2 units 301-350 mg/dl: 3 units 351-400 mg/dl: 4 units > 400 mg/dl: 5 units Consult Acknowledgment - Thank you for your consult request.
[2016-06-30 16:12] VITALS: BP 114/62
[2016-06-30 16:13] VITALS: BP 114/62
[2016-06-30 19:48] VITALS: BP 135/72
[2016-06-30 19:49] VITALS: BP 135/72
--- NOTE | 2016-06-30 20:09 | NUR ---
PT ADMITTED AT 1211 WITH ONE VALUABLES BAG. BAG REPACKAGED UPON COMING ONTO UNIT REPLACED WITH BAG [id number]. PAPERWORK FOR THIS BAG IS CONTAINED IN PT CHART. AT 1957 ANOTHER PT WAS ADMITTED TO UNIT, AND A VALUABLES FORM FOR THE INITIAL BAG FROM ER WITH TWO VALUABLE BAG RECEIPTS STAPLED TO IT WAS ALSO BROUGHT DOWN AT 1957, ALONG WITH PEER PAPER. THE RECIEPTS FOR TWO BAGS WERE BOTH STAPLED TO VALUABLES FORM [id number] - THE TWO RECEIPTS READING [id number] AND [id number]. THOUGH ONLY ONE BAG WAS INITIALLY RECEIVED WITH PT UPON ADMISSION. PER KINDRA IN CRISIS BAG [id number] WAS REPLACED BY BAG [id number] SIMPLY WITHOUT FILLING OUT ANOTHER VALUABLES SHEET, AND JUST STAPLING A SECOND RECIEPT TO THE SAME FORM. THOUGH THIS HAS NOT BEEN CONFIRMED AND THUS DOCUMENTED.
--- NOTE | 2016-06-30 21:16 | NUR ---
PT IS CALM, COOPERATIVE WITH STAFF AND PEERS, AND COMPLIANT WITH UNIT RULES. PT SPENDS THE MAJORITY OF TIME IN [place], INTERACTING WELL WITH OTHERS. MOOD IS STABLE, AFFECT IS EUTHYMIC TO FULL RANGE, COMMUNICATION IS ORGANIZED AND APPEARS NORMAL IN ALL RESPECTS, AND APPETITE IS NORMAL. BLOOD GLUCOSE RECORDED AT 1630 WAS 402. PT DENIES SI AT THIS TIME.
[2016-07-01] VITALS (7 sets, daily range): BP systolic 101–123; BP diastolic 51–74
--- NOTE | 2016-07-01 07:18 | NUR ---
PT SLEPT WELL LAST NIGHT. PT WOULD LIKE TO GET INTO A 30 DAY REHAB. PT DID NOT RECEIVE 0000 ATIVAN BECAUSE HE WAS ASLEEP.
--- NOTE | 2016-07-01 08:51 | PN- Diabetes ---
Assessment/Plan Assessment: 35-year-old male with a known history of type 1 diabetes and depression, was admitted for major depression disorder and suicidal attempts. He lost 30 pounds because he has been having chronic abdominal pain due to chronic pancreatitis. However, in ER, his ETOH level was still > 200. I was asked to see him for management of DM. He received Levemir 14 units this am in ER. He was put on Levemir 7 units twice a day, Novolog coverage before meals and Novolog coverage at bedtime. His FSGs were 115, 402, 245 and 274. Repeat TSH 0.262 and free T4 1.59. Plan: 1. increase Levemir to 10 units twice a day; 2. continue the current Novolog coverage before meals and Nocvolog coverage at bedtime; 3. monitor FSGs; 4. abnormal TFT could be sick euthyroid changes; I will recommend repeating TFT in 2-3 days. will follow. Subjective Subjective: He is sleeping. Objective Last 24 Hrs of Vital Signs/I&O Vital Signs Date Time Temp Pulse Resp B/P Pulse O2 O2 Flow FiO2 Ox Delivery Rate 07/01 0813 97.2 66 101/61 07/01 0802 97.2 66 101/61 06/30 1949 97.8 77 135/72 06/30 1948 97.9 77 135/72 06/30 1613 71 114/62 06/30 1612 71 114/62 06/30 1241 78 123/69 06/30 1155 96.9 80 18 111/65 96 Room Air
--- NOTE | 2016-07-01 13:22 | NUR ---
PT IS COMPLIANT AND COOPERATIVE. MOOD IS STABLE WITH A CONSTRICTED AFFECT. PT DENIES SI AT THIS TIME, NO COMPLAINTS OFFERED. PT HAS BEEN A BIT WITHDRAWN- IN BED A LOT DURING DAY. PT INTERACTING WELL WITH OTHERS WHEN PRESENT ON THE UNIT. PT IS ATTENDING SOME GROUPS. BS WAS 274 @0800 AND 178 @1200. VITALS ARE STABLE, APPETITE IS GOOD.
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
--- NOTE | 2016-07-01 15:23 | SOCIAL WORKER PROG NOTE PSYCH ---
Social Work Progress Note Progress Note Met with patient for initial session along with Caroline Carrasco, treating MANAGER [employer]. Patient appeared to be forthcoming, and seemed to have gained some level of maturity or insight since previous admissions to [facility]. Patient reports that he has been drining about one fifth Brigida per day, and blames self for adversely affecting his girlfriends sobriety. Patient insists that he wants to really stop and "get right" this time, as opposed to going thrugh the motions as he had done in the past. He admitted he did not stay on his medicine after leaving unit the last time that he was here. Patient cited Joie from [facility] as a primary influence, and possile ally to get him into rehab or sober housing. Patient emphasized his desire to get and stay on therapeutic medications. Caroline will be working on that with patient.
--- NOTE | 2016-07-01 17:40 | IP INCIDENTAL NOTE PSYCH ---
Incidental Note Notation: Patient requested that nicotine patch be discontinued due to adhesive sensitivity. Requested 4mg nicotine gum be ordered. Prn order entered for nicotine craving.
--- NOTE | 2016-07-01 21:12 | NUR ---
PT IS VISIBLE ON UNIT, VERY SOCIAL WITH PEERS AND STAFF. ATTENDED AA THIS EVENING. COOPERATIVE AND COMPLIANT WITH STAFF. NO COMPLAINTS OR SI REPORTED. PT HAS A STABLE MOOD AND FULL RANGE AFFECT.
[2016-07-02] VITALS (8 sets, daily range): BP systolic 100–122; BP diastolic 58–70
--- NOTE | 2016-07-02 05:01 | NUR ---
PT ASLEEP AT 0000 AND DID NOT GET ATIVAN. PT APPEARED TO SLEEP WELL.
--- NOTE | 2016-07-02 10:46 | NUR ---
PT IS STABLE WITH BRIGHT, FULL RANGE OF AFFECT. CURRENTLY IN PT ROOM SLEEPING PT DID NOT ATTEND FOCUS GROUP. PT DID ATTEND PLANNING MEETING THIS MORNING AND REPORTED THAT HIS GOAL WAS TO "BE CHILL" AND "BE HELPFUL/GIVE HELP". VISIBLE WITHIN THE COMMUNITY FOR THE MOST PART OF THE DAY. VS ARE STABLE AND DENIES ANY SI/HI TO THIS [facility].
--- NOTE | 2016-07-02 11:48 | CP SOUTH PROGRESS NOTE PSYCH ---
See Addendum Psych (Inpt) Progress Note Progress Note Include the following elements, when applicable: Involvement in the active treatment of the patient with behavioral observations of the patient and the patient's response to the treatment. Review of the ongoing treatment process in the context of the treatment plan. Indication of how multi-disciplinary staff members are carrying out the treatment plan. Plans for future interventions and recommendations for revision of the treatment plan. Liaison with other physicians/providers. Progress Note: [I discussed this patient's progress to date, current mental status, treatment process in the context of the treatment plan, and discharge planning with staff/ team in the daily morning inpatient team meeting. I also met with the patient myself in individual session.] S: "That Ativan is making me so groggy." O: Current Medications Sig/Alejandrina Start time Last Medication Dose Route Stop Time Status Admin Acetaminophen 975 MG .STK-MED ONE 07/01 1446 DC PO 07/01 1447 Acetaminophen 975 MG Q6P PRN 06/30 2100 AC 07/01 PO 1452 Aripiprazole 5 MG 2000 07/01 2000 AC 07/01 PO 2008 [place] Butter/Shark 1 ARYAN FOUR TIMES A DAY PRN 07/01 2115 AC Liver Oil TOP Fluoxetine HCl 40 MG DAILY 06/30 1107 AC 07/02 PO 0833 Folic Acid 1 MG DAILY 06/30 1101 DC 07/02 PO 07/02 1001 0833 Insulin Aspart 0 TIDAC/HS 06/30 1700 AC 07/02 SC 0833 Insulin Detemir 10 UNITS BID 07/01 1000 AC 07/02 SC 0833 Lipase/Protease/ 1 CAP WM 06/30 1700 AC 07/02 Amylase PO 0832 Loperamide HCl 2 MG Q6P PRN 06/30 2215 AC 07/01 PO 1856 Lorazepam 0.5 MG ONCE 07/05 0000 AC PO 07/05 0001 Lorazepam 0.5 MG Q6H 07/04 0000 AC PO 07/04 1801 Lorazepam 0.5 MG ONCE ONE 07/03 1800 AC PO 07/03 1801 Lorazepam 1 MG Q6H 07/03 0000 AC PO 07/03 1201 Lorazepam 1.5 MG Q12H 07/02 0600 AC 07/02 PO 07/02 1801 0707 Lorazepam 1 MG Q12H 07/02 0000 AC PO 07/02 1201 Lorazepam 0.5 MG .STK-MED ONE 07/01 1712 DC PO 07/01 1713 Lorazepam 1.5 MG Q6 07/01 0600 DC 07/01 PO 07/01 1801 1718 Lorazepam 2 MG Q2P PRN 06/30 1100 AC 06/30 PO 1439 Lorazepam 1 MG Q2P PRN 06/30 1100 AC PO Melatonin 5 MG AT BEDTIME 06/30 2200 AC 07/01 PO 2133 Multivitamins 1 TAB DAILY 06/30 1101 AC 07/02 PO 0833 Nicotine 4 MG Q3P PRN 07/01 1500 AC 07/02 PO 1143 Nicotine 21 MG DAILY 06/30 1411 DC 07/01 TOP 0827 Nicotine 2 MG Q2P PRN 06/30 1115 DC 07/01 PO 1130 Omeprazole 20 MG DAILY AC 07/01 0700 AC 07/02 PO 0658 Ondansetron HCl 4 MG Q4P PRN 07/01 2045 CAN PO Thiamine HCl 100 MG DAILY 06/30 1100 DC 07/02 PO 07/02 1001 0834 Vital Signs Date Time Temp Pulse Resp B/P Pulse O2 O2 Flow FiO2 Ox Delivery Rate 07/02 08 97.2 68 101/65 07/02 08 97.2 68 101/65 07/01 2014 96.0 73 123/74 07/02 2007 96.0 73 123/74 07/01 1647 65 118/69 07/01 1644 65 118/69 07/01 1302 72 116/51 07/01 1302 72 116/51 A: Chart, progress notes, VS, labs, CIWA scores (not scoring), FS x last 24 hours ( [phone]), and medication list were reviewed. Vital signs within normal limits. No new lab results today. Met 1:1 with patient this afternoon. Presented pleasant and cooperative. He reported feeling "groggy" from ativan taper for etoh w/d. Provided education on reason for ativan taper; he verbalized understanding of taper, was willing to continue taking as ordered. Was very focused on obtaining medication information on Strattera and felt strongly about having ADHD. Per chart review, ADHD was listed by history. He described primary symptoms of distractability, impulsivity , impaired attention/concentration, feeling overstimulated at times, irritability, mood changes. C/o distractability, impaired attention/ concentration and overstimulation could be related to present alcohol withdrawal. History of these symptoms further make it difficult to assess for accuracy due to patient's chronic alcohol/substance abuse. These symptoms may also be compounded by a history of untreated depression based on his prior nonadherence to psychiatric medications/treatment. Reviewed the above possible causes for these symptoms. Screened patient for bipolar disorder who denied symptoms largely except for occasional mood swings, racing thoughts, impulsivity, disctractibility. No reported history of psychotic or manic/hypomanic symptoms. Again, these symptoms could be masked by underlying substance abuse. Patient nonetheless remained focused on trial of Strattera. I reviewed with patient that this medication is on-label for tx of ADHD and off- label for tx-resistant depression. Notable SEs include abd pain, GI distress, reduced appetite. Patient with history IDDM and chronic pancreatitis who recently lost approx 30lbs since last hospital admission in 04/2016, who continues to have poor appetite. Advised patient that given he has not given first-line antidepressant tx agents adequate trials, to give Prozac a fair trial. Abilify was additionally added yesterday for mood stabilization/ antidepressant adjunct. Patient willing to remain on Prozac for now in additional to Abilify. Also reinforced patient to complete Ativan taper before further considering Strattera for ? inattention problems, as alcohol detox may be a contributing factor. Patient was in agreement to plan. Pt denied passive and active SI, plans, intent. Anxiety: 3/10 (10 being the worst). Depression: 5/10 (10 being the worst). Denied HI, AH, VH. No evidence of PI/delusions. Speech was normal in rate, tone and volume. Affect calm, constricted, non-labile. Mood improving, "not bad." Thought process linear, goal -directed. Focused on obtaining placement in residential rehab. Thought content appropriate. Cognition grossly intact. Appetite slowly improving. Sleep "fine." Pt reported tolerating all medications well and denied untoward medication effects. P: 1. Continue monitoring patient on unit for safety, mood, suicidal ideation. 2. Continue monitoring FS as ordered. Dr. Bell from endocrinology to continue to follow for IDDM and thyroid management. 3. Continue current medications. 4. Initiate referrals for residential rehabs/[facility] per SELF DEFENSE INSTRUCTOR.
--- NOTE | 2016-07-02 13:28 | PN- Diabetes ---
Assessment/Plan Assessment: 35-year-old male with a known history of type 1 diabetes and depression, was admitted for major depression disorder and suicidal attempts. He lost 30 pounds because he has been having chronic abdominal pain due to chronic pancreatitis. However, in ER, his ETOH level was still > 200. I was asked to see him for management of DM. He received Levemir 14 units this am in ER. Levemir was increased to 10 units twice a day. He is Novolog coverage before meals and Novolog coverage at bedtime. His FSGs were 274, 178, 305, 290, 255 and 198. Repeat TSH 0.262 and free T4 1.59. Plan: 1. continue Levemir 10 units twice a day; 2. adjust Novolog coverage before meals-- detail see the inpatient DM order; 3. continue the current Novolog coverage at bedtime; 4. monitor FSGs. will follow; repeat TFT next week. Inpatient Diabetes Orders Before Each Meal: Bolus Insulin: Novolog < 80 mg/dl: no coverage 80-100 mg/dl: 5 units 101-120 mg/dl: 5 units 121-150 mg/dl: 5 units 151-200 mg/dl: 6 units 201-250 mg/dl: 7 units 251-300 mg/dl: 8 units 301-350 mg/dl: 9 units 351-400 mg/dl: 10 units > 400 mg/dl: 11 units Subjective Subjective: He didn't have special complaints. Objective Last 24 Hrs of Vital Signs/I&O Vital Signs Date Time Temp Pulse Resp B/P Pulse O2 O2 Flow FiO2 Ox Delivery Rate 07/02 1247 77 100/58 07/02 1242 77 100/58 07/02 0812 97.2 68 101/65 07/02 0805 97.2 68 10165 07/01 2014 96.0 73 123/74 07/02 2007 96.0 73 123/74 07/01 1647 65 118/69 07/01 1644 65 118/69
--- NOTE | 2016-07-02 14:40 | SOCIAL WORKER PROG NOTE PSYCH ---
Social Work Progress Note Progress Note Recieved a call from Evin from [facility] regarding Sotero, who had stated that he had wanted to get into a rehab. Apparently he had been set up to go to [facility], but "took off and wound up at [facility]", in order to avoid going. 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 He is authorized for admission and will be transported on Tuesday # [phone] [facility] to provide transport, but suggest that call number in order to arrange time. Spoke with Sotero, in an excited manner, telling him that we were missy to get the rehab bed he wanted. He made an attempt to sound pleased, but stayed in bed and appeared very unenthusiastic.
--- NOTE | 2016-07-02 16:18 | SOCIAL WORKER TX PLAN PSYCH ---
Treatment Plan - Please Document: - Evidence that there is ongoing collaboration between - the patient and the interdisciplinary team, - including the patient's active participation and - responsibility for engaging in the treatment regimen, - and that the treatment plan is individualized and - relevant to the patient's conditions. - Treatment plan should reflect documentation indicating - that all active therapeutic efforts are included. Strengths/Capabilities: agrees to voluntary admission to [facility], wants treatment Physical Limitations (Interventions): Patient has several serious medical issues. 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
--- NOTE | 2016-07-02 22:23 | NUR ---
PT IS CALM, COOPERATIVE WITH STAFF AND PEERS, AND COMPLIANT WITH UNIT RULES. PT IS OFTEN IN [place], INTERACTING WELL WITH OTHERS. MOOD IS STABLE, AFFECT IS FULL RANGE, COMMUNICATION IS ORGANIZED AND APPEARS NORMAL IN ALL RESPECTS, AND APPETITE IS NORMAL. PT DENIES SI AT THIS TIME. BLOOD GLUCOSE AT 1630 WAS 377 AND AT 2130 WAS 315.
[2016-07-03] VITALS (10 sets, daily range): BP systolic 100–119; BP diastolic 55–68
--- NOTE | 2016-07-03 06:30 | NUR ---
PATIENT SLEPT ALL NIGHT.
--- NOTE | 2016-07-03 10:38 | NUR ---
DR. REDDY MEETING WITH PT AT THIS TIME.
--- NOTE | 2016-07-03 11:38 | PN- Diabetes ---
Assessment/Plan Assessment: 35-year-old male with a known history of type 1 diabetes and depression, was admitted for major depression disorder and suicidal attempts. He lost 30 pounds because he has been having chronic abdominal pain due to chronic pancreatitis. However, in ER, his ETOH level was still > 200. At the present time the patient is on 10 units twice a day of Levemir. He is also on sliding scale NovoLog before meals starting with 80-150 give 5 units, 151-200 give 6 units. Fingerstick blood sugars yesterday were 235 before breakfast, 197 before lunch, 377 before dinner, and 313 at bedtime. This morning his fingerstick blood sugar is 279. Repeat TSH 0.262 and free T4 1.59. Plan: Suggest continue the same insulin for now. I have asked the patient to be more careful on his diet. After observing his blood sugars today we may need to make further changes. Subjective Subjective: Feels okay Review of Systems Constitutional: Denies: chills, fever. Cardiovascular: Denies: chest pain. Respiratory: Denies: short of breath. Gastrointestinal: Reports: abdominal pain (epigastric after eating which ). Genitourinary: Denies: dysuria. Skin: Reports: no symptoms. Objective Last 24 Hrs of Vital Signs/I&O Vital Signs Date Time Temp Pulse Resp B/P Pulse O2 O2 Flow FiO2 Ox Delivery Rate 07/03 0840 97.2 80 105/64 07/03 0822 97.2 80 105/64 07/03 0056 69 18 10007/02 96.7 95 122/07/02 96.7 95 122/07/02 1611 81 109/07/02 1555 81 109/07/02 1247 77 /07/02 1242 77 100/58 Vital Signs Date Time Temp Pulse Resp B/P Pulse O2 O2 Flow FiO2 Ox Delivery Rate 07/03 0840 97.2 80 105/64 07/03 0822 97.2 80 105/64 07/03 0056 69 18 100/07/02 96.7 95 122/70 07/02 2000 96.7 95 122/07/02 1611 81 109/66 07/02 1555 81 109/66 07/02 1247 77 100/07/02 1242 77 100/58 Physical Exam General Appearance: alert, awake, comfortable Head: normal appearance Neck: normal inspection Respiratory: normal breath sounds Cardiovascular: regular rate/rhythm Abdomen: normal bowel sounds Extremities: normal inspection Current Medications: Current Medications Sig/Alejandrina Start time Last Medication Dose Route Stop Time Status Admin Acetaminophen 975 MG Q6P PRN 06/30 2100 AC 07/01 PO 1452 Aripiprazole 5 MG 2000 07/02 1999 AC 07/02 PO 2013 [place] Butter/Shark 1 ARYAN FOUR TIMES A DAY PRN 07/01 2115 AC Liver Oil TOP Fluoxetine HCl 40 MG DAILY 06/30 1107 AC 07/03 PO 0842 Insulin Aspart 0 TIDAC/HS 06/30 1700 AC 07/03 SC 0844 Insulin Detemir 10 UNITS BID 07/01 1000 AC 07/03 SC 0846 Lipase/Protease/ 1 CAP WM 06/30 1700 AC 07/03 Amylase PO 0841 Loperamide HCl 2 MG Q6P PRN 06/30 2215 AC 07/01 PO 1856 Lorazepam 0.5 MG ONCE 07/05 0000 AC PO 07/05 0001 Lorazepam 0.5 MG Q6H 07/04 0000 AC PO 07/04 1801 Lorazepam 0.5 MG ONCE ONE 07/03 1800 AC PO 07/03 1801 Lorazepam 1 MG Q6H 07/03 0000 AC 07/03 PO 07/03 1201 0641 Lorazepam 0.5 MG .STK-MED ONE 07/02 1709 DC PO 07/02 1710 Lorazepam 1.5 MG Q12H 07/02 0600 DC 07/02 PO 07/02 1801 1715 Lorazepam 1 MG Q12H 07/02 0000 DC 07/02 PO 07/02 1201 1230 Lorazepam 2 MG Q2P PRN 06/30 1100 AC 06/30 PO 1439 Lorazepam 1 MG Q2P PRN 06/30 1100 AC PO Melatonin 5 MG AT BEDTIME 06/30 2200 AC 07/02 PO 2252 Multivitamins 1 TAB DAILY 06/30 1101 AC 07/03 PO 0842 Nicotine 4 MG Q3P PRN 07/01 1500 AC 07/03 PO 0842 Omeprazole 20 MG DAILY AC 07/01 0700 AC 07/03 PO 0641
--- NOTE | 2016-07-03 12:12 | CP SOUTH PROGRESS NOTE PSYCH ---
Psych (Inpt) Progress Note Progress Note Include the following elements, when applicable: Involvement in the active treatment of the patient with behavioral observations of the patient and the patient's response to the treatment. Review of the ongoing treatment process in the context of the treatment plan. Indication of how multi-disciplinary staff members are carrying out the treatment plan. Plans for future interventions and recommendations for revision of the treatment plan. Liaison with other physicians/providers. Progress Note: Pt notes that he is "well" but tired from the ativan. He requested slight increase in melatonin. Denies SI or HI. Plans for CVH tuesday. Current Medications Sig/Alejandrina Start time Last Medication Dose Route Stop Time Status Admin Acetaminophen 975 MG Q6P PRN 06/30 2100 AC 07/01 PO 145 Aripiprazole 5 MG 07/01 AC 07/02 PO 2013 [place] Butter/Shark 1 ARYAN FOUR TIMES A DAY PRN 07/01 2115 AC Liver Oil TOP Fluoxetine HCl 40 MG DAILY 06/30 1107 AC 07/03 PO 0842 Insulin Aspart 0 TIDAC/HS 06/30 1700 AC 07/03 SC 0844 Insulin Detemir 10 UNITS BID 07/01 1000 AC 07/03 SC 0846 Lipase/Protease/ 1 CAP WM 06/30 1700 AC 07/03 Amylase PO 0841 Loperamide HCl 2 MG Q6P PRN 06/30 2215 AC 07/01 PO 1856 Lorazepam 0.5 MG ONCE 07/05 0000 AC PO 07/05 0001 Lorazepam 0.5 MG Q6H 07/04 0000 AC PO 07/04 1801 Lorazepam 0.5 MG ONCE ONE 07/03 1800 AC PO 07/03 1801 Lorazepam 1 MG Q6H 07/03 0000 DC 07/03 PO 07/03 1201 0641 Lorazepam 0.5 MG .STK-MED ONE 07/02 1709 DC PO 07/02 1710 Lorazepam 1.5 MG Q12H 07/02 0600 DC 07/02 PO 07/02 1801 1715 Lorazepam 2 MG Q2P PRN 06/30 1100 AC 06/30 PO 1439 Lorazepam 1 MG Q2P PRN 06/30 1100 AC PO Melatonin 9 MG AT BEDTIME 07/03 2200 UNVr PO Melatonin 5 MG AT BEDTIME 06/30 2200 DC 07/02 PO 2252 Multivitamins 1 TAB DAILY 06/30 1101 AC 07/03 PO 0842 Nicotine 4 MG Q3P PRN 07/01 1500 AC 07/03 PO 0842 Omeprazole 20 MG DAILY AC 07/01 0700 AC 07/03 PO 0641 Vital Signs Date Time Temp Pulse Resp B/P Pulse O2 O2 Flow FiO2 Ox Delivery Rate 07/03 0840 97.2 80 105/64 07/03 0822 97.2 80 105/64 07/03 0056 69 18 100/55 07/03 2007 96.7 95 122/70 07/02 2000 96.7 95 122/70 07/02 1611 81 109/66 07/02 1555 81 109/66 07/02 1247 77 100/58 07/02 1242 77 /58 MSE Appears as stated age. Cooperative behavior, good, appropriate eye contact. Nl speech rate and prosody. No psychomotor retardation or agitation. Mood fine Affect euthymic, constricted, appropriate, non-liable. Linear and goal directed thought process. Denies SI or HI. Does not appear to be responding to internal stimuli. Denies AVHs, paranoia, or delusions. I/J: limited A/P: Pt with TBI, MDD, AUD now awaiting placement at [facility]. - Increase melatonin to 9mg nightly - Otherwise continue current medication regiman.
--- NOTE | 2016-07-03 13:20 | NUR ---
PT IS COMPLIANT AND COOPERATIVE WITH UNIT RULES. PT IS OUT IN COMMUNITY INTERACTING WITH STAFF AND PEERS AT TIMES. PT WAS A LITTLE ISOALTIVE IN ROOM THIS MORNING SLEEPING. PT DID NOT ATTEND GROUPS THIS MORNING. PT MOOD IS STABLE WITH A CONSTRICTED AFFECT. PT DENIES SI THOUGHTS.
--- NOTE | 2016-07-03 18:47 | NUR ---
DR. REDDY NOTIFIED RE: PT'S DINNER TIME BLLOD SUGAR OF 459, NO NEW ORDERS JUST FOR THE MED RN TO FOLLOW THE CURRENT SLIDING SCALE PER EMAR.
--- NOTE | 2016-07-03 22:25 | NUR ---
PATIENT OUT IN COMMUNITY, ALERT AND ORIENTED X3, DENIES S/I; PATIENT ATTENDING GROUPS; INTERACTING WITH PEERS AND STAFF NORMALLY.
[2016-07-04] VITALS (8 sets, daily range): BP systolic 108–122; BP diastolic 62–69
--- NOTE | 2016-07-04 06:27 | NUR ---
PATIENT SLEPT ALL NIGHT.
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
--- NOTE | 2016-07-04 12:08 | PN- Diabetes ---
Assessment/Plan Assessment: 35-year-old male with a known history of type 1 diabetes and depression, was admitted for major depression disorder and suicidal attempts. He lost 30 pounds because he has been having chronic abdominal pain due to chronic pancreatitis. However, in ER, his ETOH level was still > 200. At the present time the patient is on 10 units twice a day of Levemir. He is also on sliding scale NovoLog before meals starting with 80-150 give 5 units, 151-200 give 6 units. Fingerstick blood sugars yesterday were to 279 before breakfast, 134 before lunch. His sugar then became high at 459 before dinner. In speaking with the patient he states he ate a lot of candy. This morning his fingerstick blood sugar is 259. Repeat TSH 0.262 and free T4 1.59. Plan: Suggest continue the present insulin. I have cautioned the patient with regard to his carbohydrate intake. We'll repeat thyroid function tests tomorrow. Subjective Subjective: Feels okay. Has occasional abdominal pain. Review of Systems Constitutional: Denies: chills, fever. Cardiovascular: Denies: chest pain. Respiratory: Denies: cough, short of breath. Gastrointestinal: Reports: abdominal pain (epigastric after eating). Skin: Reports: no symptoms. Objective Last 24 Hrs of Vital Signs/I&O Vital Signs Date Time Temp Pulse Resp B/P Pulse O2 O2 Flow FiO2 Ox Delivery Rate 07/04 1148 80 112/62 07/04 1147 80 11207/04 0816 97.2 71 108/65 07/04 0815 97.2 71 108/65 07/03 2353 65 18 102/57 07/04 1951 87 07/03 96.4 87 07/03 1612 79 119/68 07/03 1608 79 119/68 07/03 1216 87 109/63 07/03 1215 87 109/63 Vital Signs Date Time Temp Pulse Resp B/P Pulse O2 O2 Flow FiO2 Ox Delivery Rate 07/04 1148 80 112/62 07/04 1147 80 112/62 07/04 0816 97.2 71 108/65 07/04 0815 97.2 71 108/65 07/03 2353 65 18 102/57 07/032 87 10107/03 96.4 87 101/61 07/03 1612 79 119/68 07/03 1608 79 119/68 07/03 1216 87 109/63 07/03 1215 87 109/63 Physical Exam General Appearance: alert, awake, comfortable Head: normal appearance Neck: normal inspection Abdomen: not distended Extremities: normal inspection Current Medications: Current Medications Sig/Alejandrina Start time Last Medication Dose Route Stop Time Status Admin Acetaminophen 975 MG .STK-MED ONE 07/03 1248 DC PO 07/03 1249 Acetaminophen 975 MG Q6P PRN 06/30 2100 AC 07/03 PO 1254 Aripiprazole 5 MG 07/01 AC 07/03 PO 2009 [place] Butter/Shark 1 ARYAN FOUR TIMES A DAY PRN 07/01 2115 AC Liver Oil TOP Fluoxetine HCl 40 MG DAILY 06/30 1107 AC 07/04 PO 0816 Hydroxyzine HCl 50 MG Q6P PRN 07/03 1330 AC 07/03 PO 1402 Insulin Aspart 0 TIDAC/HS 06/30 1700 AC 07/04 SC 0814 Insulin Detemir 10 UNITS BID 07/01 1000 AC 07/04 SC 0816 Lipase/Protease/ 1 CAP WM 06/30 1700 AC 07/04 Amylase PO 0815 Loperamide HCl 2 MG Q6P PRN 06/30 2215 AC 07/01 PO 1856 Lorazepam 0.5 MG ONCE 07/05 0000 AC PO 07/05 0001 Lorazepam 0.5 MG Q6H 07/04 0000 AC 07/04 PO 07/04 1801 0703 Lorazepam 0.5 MG ONCE ONE 07/03 1800 DC 07/03 PO 07/03 1801 1731 Lorazepam 2 MG Q2P PRN 06/30 1100 AC 06/30 PO 1439 Lorazepam 1 MG Q2P PRN 06/30 1100 AC PO Melatonin 9 MG AT BEDTIME 07/03 2200 AC 07/03 PO 2150 Multivitamins 1 TAB DAILY 06/30 1101 AC 07/04 PO 0816 Nicotine 4 MG Q3P PRN 07/01 1500 AC 07/04 PO 0837 Omeprazole 20 MG DAILY AC 07/01 0700 AC 07/04 PO 0703 Prazosin HCl 1 MG AT BEDTIME 07/04 2200 AC PO Quetiapine Fumarate 25 MG Q6P PRN 07/04 1000 AC 07/04 PO 1009
--- NOTE | 2016-07-04 13:38 | NUR ---
out in community most of the morning interacting with his peers and the staff. Mood is stable full range of affect, denied thoughts of self harm when asked. Overheard discussing employment possibilities and strategies with staff at one point. Blood sugar remains variable.
--- NOTE | 2016-07-04 19:54 | NUR ---
PT IS STABLE WITH FULL RANGE OF AFFECT, VISIBLE WITHIN THE COMMUNITY, INTERACTING WITH PEERS/STAFF MEMBERS, APPROPRIATE, CALM, COOPERATIVE, COMPLIANT. NO SCORING ON CIWA, VS ARE STABLE, DENIES ANY SI/HI TO THIS MHW.
[2016-07-05] VITALS (7 sets, daily range): BP systolic 108–145; BP diastolic 61–77
--- NOTE | 2016-07-05 07:24 | NUR ---
PATIENT UP TO BATHROOM ONCE, OTHERWISE SLEPT ALL NIGHT.
--- NOTE | 2016-07-05 08:20 | PN- Diabetes ---
Assessment/Plan Assessment: 35-year-old male with a known history of type 1 diabetes and depression, was admitted for major depression disorder and suicidal attempts. He lost 30 pounds because he has been having chronic abdominal pain due to chronic pancreatitis. However, in ER, his ETOH level was still > 200. At the present time the patient is on 10 units twice a day of Levemir. He is also on sliding scale NovoLog before meals starting with 80-150 give 5 units, 151-200 give 6 units. FSGs were 259, 207, 381, 378 and 259. Repeat TFT is pending. Plan: 1. increase Levemir to 12 units twice a day; 2. adjust Novolog coverage before meals---detail see the inpatient DM order; 3. Novolog coverage at bedtime; 4. monitor FSGs; 5. f/u TFT. 6. discharge plan for DM will be the same insulin regimen as inpatient. Inpatient Diabetes Orders Before Each Meal: Bolus Insulin: Novolog < 80 mg/dl: no coverage 80-100 mg/dl: 7 units 101-120 mg/dl: 7 units 121-150 mg/dl: 7 units 151-200 mg/dl: 8 units 201-250 mg/dl: 9 units 251-300 mg/dl: 10 units 301-350 mg/dl: 11 units 351-400 mg/dl: 12 units > 400 mg/dl: 13 units Subjective Subjective: He will be discharged today. Objective Last 24 Hrs of Vital Signs/I&O Vital Signs Date Time Temp Pulse Resp B/P Pulse O2 O2 Flow FiO2 Ox Delivery Rate 07/05 0811 97.2 80 108/63 07/05 0804 97.2 80 108/63 07/04 2146 97.8 91 18 110/64 07/04 1931 97.8 91 110/64 07/04 1917 97.8 91 110/64 07/04 1559 90 122/69 07/04 1556 90 122/69 07/04 1148 80 112/62 07/04 1147 80 112 Findings Pertinent Lab/Judson Results: Laboratory Tests 07/05 06 Chemistry TSH Pending Free T4 Pending
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
--- NOTE | 2016-07-05 11:15 | SOCIAL WORKER TX PLAN PSYCH ---
Treatment Plan - Please Document: - Evidence that there is ongoing collaboration between - the patient and the interdisciplinary team, - including the patient's active participation and - responsibility for engaging in the treatment regimen, - and that the treatment plan is individualized and - relevant to the patient's conditions. - Treatment plan should reflect documentation indicating - that all active therapeutic efforts are included. Strengths/Capabilities: agrees to voluntary admission to [facility], wants treatment Physical Limitations (Interventions): Patient has several serious medical issues. Patient Identified Trmt Goals: " I want to be more stable." Discharge Plan: rehab Problem/Goals #1 Problem #1: suicidal ideation Goal (Short Term): Today I will attend 2 groups Today I will identify 2 stressors Today I will identify 2 positive supports Today I will work on recognizing 3 emotions I am feeling Goal (Fpc): Be free of suicidal thoughts/attempts Develop 3 coping skills to deal with depression Identify 3 positive support systems to call in crisis Develop a crisis plan with 3 huber people Identify 2 positive traits per week about myself Identify 2 things I have to look forward to Identify 2 positive people in my life and 1 thing I appreciate about them Interventions: Learn ways to manage depressive symptoms accordingly and identify positive supports to manage life stressors and mood fluctuations. Modalities: Encourage groups, education on depression, provide CBT treatment, family meeting. Problem/Goals #2 Problem #2: polysubstance abuse Goal (Short Term): 1) Refrain from all substance use 2) Identify 3 triggers for use 3) Identify 3 sober supports 4) Identify 3 coping skills Goal (Fpc): I will have family meeting on unit during my hospitalization I will attend all AA groups on unit I will Identify 3 coping skills for cravings to use I will set up aftercare for dual diagnosis program to address both mental health and substance abuse concerns Interventions: Learn ways to manage cravings to use substances accordingly and identify coping skills to prevent relapse from occurring due to anxious/depressed feelings. Modalities: Encourage groups, education on addiction, provide CBT treatment, family meeting. 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
--- NOTE | 2016-07-05 11:15 | SOCIAL WORKER PROG NOTE PSYCH ---
Social Work Progress Note Progress Note This field underwriter called and spoke to [facility] today, [facility] and their [facility] , and they reported no information on patient and patient is not on their waiting list. This field underwriter confirmed with Evin at [facility] that [facility] is planning to come to visit patient today on the unit and complete in person interview for their program. Patient will not be discharging today but did express interest to wait at either [facility] or [facility]. Patient reported no issues with remaining in the hospital until bed becomes available at a program. Patient attending groups on the unit today and presents with normal mood and affect. He is cooperative with this current plan and treatment goals.
--- NOTE | 2016-07-05 13:50 | NUR ---
out in community going to groups. discharge plan has changed and and will require anew plan. mood is stable, full range of affect. blood sugars have been good today. denied thoughts of self harm when asked. interacts with peers and staff.
--- NOTE | 2016-07-05 21:13 | NUR ---
PT IS VISIBLE ON UNIT, SOCIAL WITH PEERS AND COOPERATIVE/COMPLIANT WITH STAFF. ATTENDED WRAP UP MEETING AND PARTICIPATED. NO COMPLAINTS OR SI REPORTED. PT HAS A STABLE MOOD AND FULL RANGE AFFECT.
--- NOTE | 2016-07-06 06:37 | NUR ---
PT IN BED EARLY. PT UP X 1. PT APPEARED TO SLEEP WELL.
[2016-07-06 08:12] VITALS: BP 102/64
--- NOTE | 2016-07-06 09:32 | PN- Diabetes ---
Assessment/Plan Assessment: 35-year-old male with a known history of type 1 diabetes and depression, was admitted for major depression disorder and suicidal attempts. He lost 30 pounds because he has been having chronic abdominal pain due to chronic pancreatitis. However, in ER, his ETOH level was still > 200. At the present time the patient is on 12 units twice a day of Levemir. He is also on sliding scale NovoLog before meals starting with 80-150 give 7 units, 151-200 give 8 units. FSGs were 259, 146, 402, 338 and 269. Repeat TFT-- TSH 1.45, free T4 0.88. Plan: FSGs have been up and down most likely due to diet; will continue the current insulin regimen for now; monitor FSGs. will follow. Subjective Subjective: Patient is still in [facility] today. Objective Last 24 Hrs of Vital Signs/I&O Vital Signs Date Time Temp Pulse Resp B/P Pulse O2 O2 Flow FiO2 Ox Delivery Rate 07/06 0812 96.2 72 102/64 07/05 2137 89 145/77 07/05 1938 96.4 89 145/77 07/05 1628 72 109/61 07/05 1625 72 109/61 07/05 1224 75 109/65 07/05 1204 75 109/65
--- NOTE | 2016-07-06 11:40 | NUR ---
PT WAS VISIBLE IN THE [place] MOST OF THE DAY. HIS GOAL TODAY WAS TO MAKE IMPORTANT PHONE CALLS. PT HAS BEEN GOING TO MOST GROUPS TODAY, WITH THE EXCEPTION OF [facility]. HE HAS SOME INTERACTIONS WITH HIS PEERS, AND COOPERATIVE WITH STAFF DIRECTION. PT HAS BEEN CALM, AND PLEASANT, HE DENIES THOUGHTS OF HURTING HIMSELF WHEN ASKED.
[2016-07-06 12:12] VITALS: BP 105/65
--- NOTE | 2016-07-06 14:01 | CP SOUTH PROGRESS NOTE PSYCH ---
Psych (Inpt) Progress Note Progress Note Include the following elements, when applicable: Involvement in the active treatment of the patient with behavioral observations of the patient and the patient's response to the treatment. Review of the ongoing treatment process in the context of the treatment plan. Indication of how multi-disciplinary staff members are carrying out the treatment plan. Plans for future interventions and recommendations for revision of the treatment plan. Liaison with other physicians/providers. Progress Note: I discussed this patient's progress to date, current mental status, treatment process in the context of the treatment plan, and discharge planning with staff/ team in the daily morning inpatient team meeting. I also met with the patient myself in individual session. S: "Is there a way for me to discharge soon?" Patient continued to express motivation today to go to a residential 30-day program for alcohol dependence, whether he were to be admitted directly from hospital or from home. He reported speaking to his girlfriend recently who he said she was willing to have him return home. He stated she is in recovery herself, attends and has a strong recovery support system. He denied urges and craving to use alcohol. Was not willing to start Naltrexone today, given no alcohol cravings. Provided education on the benefits of Naltrexone long-term when he is not in a protected environment. Pt verbalized understanding and will consider further. Reported tolerating scheduled seroquel and prn gabapentin well. Denied untoward medication effects. Denied suicidal ideation, plans and intent. Denied homicidal ideation, auditory and visual hallucinations. O: Current Medications Sig/Alejandrina Start time Last Medication Dose Route Stop Time Status Admin Acetaminophen 975 MG .STK-MED ONE 07/05 1426 DC PO 07/05 1427 Acetaminophen 975 MG Q6P PRN 06/30 2100 AC 07/06 PO 1223 [place] Butter/Shark 1 ARYAN FOUR TIMES A DAY PRN 07/01 2115 AC Liver Oil TOP Fluoxetine HCl 40 MG DAILY 06/30 1107 AC 07/06 PO 0902 Gabapentin 300 MG Q8P PRN 07/05 1430 AC 07/06 PO 1254 Hydroxyzine HCl 50 MG Q6P PRN 07/03 1330 DC 07/03 PO 1402 Insulin Aspart 0 TIDAC/HS 06/30 1700 AC 07/06 SC 1220 Insulin Detemir 12 UNITS BID 07/05 1000 AC 07/06 SC 0904 Lipase/Protease/ 1 CAP WM 06/30 1700 AC 07/06 Amylase PO 1220 Loperamide HCl 2 MG Q6P PRN 06/30 2215 AC 07/01 PO 1856 Lorazepam 2 MG Q2P PRN 06/30 1100 DC 06/30 PO 1439 Lorazepam 1 MG Q2P PRN 06/30 1100 DC PO Melatonin 9 MG AT BEDTIME 07/03 2200 AC 07/05 PO 2137 Multivitamins 1 TAB DAILY 06/30 1101 AC 07/06 PO 0801 Nicotine 4 MG Q3P PRN 07/01 1500 AC 07/06 PO 1254 Omeprazole 20 MG DAILY AC 07/01 0700 AC 07/06 PO 0800 Prazosin HCl 1 MG AT BEDTIME 07/04 2200 AC 07/05 PO 2137 Quetiapine Fumarate 50 MG 0800,1400 07/06 0800 AC 07/06 PO 0800 Quetiapine Fumarate 25 MG Q6P PRN 07/04 1000 DC 07/05 PO 1352 Vital Signs Date Time Temp Pulse Resp B/P Pulse O2 O2 Flow FiO2 Ox Delivery Rate 07/06 1212 76 105/65 07/06 0812 96.2 72 102/64 07/05 2137 89 145/77 07/05 1938 96.4 89 145/77 07/05 1628 72 109/61 07/05 1625 72 109/61 A: Chart, progress notes, labs, VS, FS and medication list were reviewed. Vital signs within normal limits. There were no new labs results today. Patients mood appeared euthymic and improved. Pleasant and cooperative. Affect full-range, non-labile. Ox3. Eye contact was appropriate. Speech normal in rate, tone and volume. Sleep and appetite stable. Denied further recurrence of nightmares. Thought process linear, goal-directed. Anxiety: 3/10 (10 being worst ). Depression: 1/10 (10 being worst). Denied SI/HI/AVH. Denied PI. No evidence of delusions. Insight and judgement slowly improving. No evidence of abnormal involuntary movements. AIMS=0. P: 1. Continue current medications. 2. Continue monitoring patient on unit for safety and mood. 3. Consider trial of Naltrexone for alcohol cravings inpt versus outpt. 4. Dispo planning per primary team - likely discharge tomorrow or .
[2016-07-06 15:50] VITALS: BP 118/62
--- NOTE | 2016-07-06 15:52 | SOCIAL WORKER PROG NOTE PSYCH ---
Social Work Progress Note Progress Note This administrative underwriter spoke with Whitney from [facility] today who explained that together [facility] and [facility] had recently developed a plan with [facility] when patient was at [facility] the last time to probate him to substance abuse rehab. Patient ended up leaving [facility] but was under the impression that if he returned they would start the probate process to rehab. Whitney asked if we would continue with this plan at [facility] since patient has hx of not following through with rehab post discharge from the hospital. I discussed this thoroughly with the team today and the overall consesus and decision was that if patient is willing to voluntarily go to rehab then it is not legal for us to file a probate hearing and ultimately the horse show judge will not commit him if he is voluntarily willing to go. Patient continues to state that he is willing to go. I relayed this information back to Whitney and she understood and said that patient will have to go on the community waiting list for [facility] vs the probate waiting list if this is the route we choose to go. We can also look at other rehabs in the area if patient is willing to be flexible which he states he is. Patient did share today that he is able to temporarily stay with his girlfriend who resides in [place] and can wait with her until a bed becomes available at rehab. He states that he will attend [facility] in the meantime while waiting for rehab. His girlfriend, Ramona, plans to come in for a family meeting and we will tentatively discuss discharge at this meeting.
[2016-07-06 20:07] VITALS: BP 112/81
--- NOTE | 2016-07-06 21:57 | NUR ---
PT IS CALM, COOPERATIVE WITH STAFF AND PEERS, AND COMPLIANT WITH UNIT RULES. PT IS OFTEN IN [place], INTERACTING WELL WITH OTHERS. MOOD IS STABLE, AFFECT IS FULL RANGE, COMMUNICATION IS ORGANIZED AND APPEARS NORMAL IN ALL RESPECTS, AND APPETITE IS NORMAL. PT DENIES SI AT THIS TIME. BLOOD GLUCOSE AT 1630 WAS 301, AND AT 2130 WAS 232.
--- NOTE | 2016-07-07 03:02 | NUR ---
Slept well, no complaints offered.
[2016-07-07 07:58] VITALS: BP 108/69
--- NOTE | 2016-07-07 10:56 | NUR ---
PT IS COMPLIANT AND COOPERATIVE WITH UNIT RULES. PT IS OUT IN COMMUNITY INTERACTING WELL WITH STAFF AND PEERS. PT IS ACTIVE IN GROUPS. PT MOOD IS STABLE WITH A FULL RANGE AFFECT. PT IS LOOKING FORWARD TO DISCHARGE SOON AND FEELS READY. PT DENIES SI ABDULKADIROGUHTS.
[2016-07-07 12:23] VITALS: BP 116/68
--- NOTE | 2016-07-07 13:49 | SOCIAL WORKER PROG NOTE PSYCH ---
Social Work Progress Note Progress Note Patient had family meeting today with this designer writer and his significant other, Ramona. Ramona resides in [place], [place] and states that patient is able to reside with her post discharge from the hospital. Patient plans to continue to seek residential treatment from home and this designer writer will make referrals today to [facility], [facility] and [facility]. In the meantime, patient plans to attend [facility] in [place] while residing at Ramona's house, Rah states that her house is drug and alcohol free and if patient is to use he will no longer be welcome in the house. Patient is able to contract for safety today and is requesting discharge from the hospital tomorrow.
--- NOTE | 2016-07-07 14:19 | CP SOUTH PROGRESS NOTE PSYCH ---
Psych (Inpt) Progress Note Progress Note Include the following elements, when applicable: Involvement in the active treatment of the patient with behavioral observations of the patient and the patient's response to the treatment. Review of the ongoing treatment process in the context of the treatment plan. Indication of how multi-disciplinary staff members are carrying out the treatment plan. Plans for future interventions and recommendations for revision of the treatment plan. Liaison with other physicians/providers. Progress Note: Case and treatment plan discussed in team meeting. The patient is a 35-year-old white male known to me from his prior treatment on [facility]. He was admitted on 06/30/16 after having become angry and hopeless and tying a cord around his neck in a suicide attempt. He apparently was intoxicated at the time. The patient carries the diagnosis major depression, recurrent, severe, alcohol use disorder, severe and rule out unspecified bipolar disorder. Medication list reviewed. Staff reports that the patient's girlfriend visited last night. Patient seen at 12:28 PM. He is an ambulatory, casually dressed white male, noted to have a north with 4 prominent ariel in his north. He is sitting in a chair in no acute distress. He is calm, polite and cooperative. There is no psychomotor agitation or retardation. Speech is normal in volume, rate and tone. Affect is calm and euthymic. Patient reports feeling good for the most part. Reports he is anxious this morning because he had hoped to go today. Reports he has to wait for a rehab. States he is motivated for treatment. Plans to stay at his girlfriend's home in [place]. Rates mood 10/10 with 10 being best, stating "I'm pretty good." Rates sad mood maybe at 2/10 with 10 being worst, sad because he is not out of here. Rates anxiety about 3/10 with 10 being worst. Denies feeling hopeless, helpless or worthless. Reports feeling a little guilty but he does not know why. Denies active and passive suicidal ideation. Denies homicidal ideation. Denies auditory and visual hallucinations. Denies paranoid ideation. Reports sleep has been pretty good while he has been here, but he had a nightmare the other night. Reports appetite is excellent. Energy is described as decent; the patient reports he has been walking around the unit and has been trying to do some pushups. Reports tolerating current medications well, without complaint. IMPRESSION: Slow progress. Continue present treatment plan. Anticipate likely discharge tomorrow.
[2016-07-07 15:46] VITALS: BP 111/67
[2016-07-07 19:37] VITALS: BP 119/62
--- NOTE | 2016-07-07 21:45 | NUR ---
PT IS VISIBLE ON UNIT, SOCIAL WITH PEERS AND COOPERATIVE/COMPLIANT WITH STAFF. ATTENDED WRAP UP MEETING. NO COMPLAINTS OR SI REPORTED. PT HAS A STABLE MOOD AND FULL RANGE AFFECT.
--- NOTE | 2016-07-08 07:22 | NUR ---
PATIENT SLEPT ALL NIGHT.
[2016-07-08 08:21] VITALS: BP 106/59
--- NOTE | 2016-07-08 08:29 | NUR ---
SPOKE WITH DR HERBERT WHO STATED SHE WOULD LIKE PT TO BE DISCHARGED ON THE CURRENT INSULIN SCHEDULE
--- NOTE | 2016-07-08 08:30 | NUR ---
PT [place]ED[place] [facility] [place] HE WILL RESIDE WITH HIS GIRLFRIEN AND ATTEND IOP AT [facility]. HE WILL CONTINUE TO SEEK [facility]. HE REPORTS AN IMPROVED MOOD AND ORGANIZED THOUGHTS. HE DENIES ANY THOUGHTS OF SUICIDE OR SELF HARM..HE HAS FULL RANGE OF AFFECT. HE VERBALIZES A GOOD UNDERSTNADING OF HIS MED REGIME AND TREATMENT PLAN. PT IS GIVEN EDUCATION ON MANAGING HIS DEPRESSION AND ON PREVENTING SUICIDE
--- NOTE | 2016-07-08 09:28 | PN- Diabetes ---
Assessment/Plan Assessment: 35-year-old male with a known history of type 1 diabetes and depression, was admitted for major depression disorder and suicidal attempts. He lost 30 pounds because he has been having chronic abdominal pain due to chronic pancreatitis. However, in ER, his ETOH level was still > 200. At the present time the patient is on 12 units twice a day of Levemir. He is also on sliding scale NovoLog before meals starting with 80-150 give 7 units, 151-200 give 8 units. FSGs were 378, 159, 336, 363 and 281. Plan: He is going to be discharged today; the discharge plan for DM will be the same insulin regimen as inpatient. I have sent in Rx of free style lite test strips to his pharmacy as per his request. Subjective Subjective: He is going to be discharged today. Objective Last 24 Hrs of Vital Signs/I&O Vital Signs Date Time Temp Pulse Resp B/P B/P Pulse O2 O2 Flow FiO2 Mean Ox Delivery Rate 07/08 0821 96.0 81 106/59 07/07 2215 97.7 83 18 119/62 07/07 1937 97.7 83 119/62 07/07 1546 73 111/67 07/07 1223 69 116/68
--- NOTE | 2016-07-08 10:49 | SOCIAL WORKER PROG NOTE PSYCH ---
Social Work Progress Note Progress Note Patient to discharge home today. Patient reports feeling ready to return home and is able to contract for safety today. Patient will stay with his girlfriend, Ramona, while seeking residential treatment. Patient will attend IOP at [facility] in [place] and is to attend a walk in evaluation next 07/13/16 @ 9AM. Patient denies SI/HI/AH/VH at present. Patients girlfriend will be picking him up from the hospital today.
[2016-07-08] MEDS ORDERED: SEROQUEL50 M1 PO (11:13)
[2016-07-08] MEDS ORDERED: NOVOLOG FL100 UNIT/1 SC ×2 (11:13→12:43)
[2016-07-08] MEDS ORDERED: MELATONIN3 M4 PO (11:13)
[2016-07-08] MEDS ORDERED: LEVEMIR FL100 UNIT/1 SC ×2 (11:13→12:43)
[2016-07-08] MEDS ORDERED: MINIPRESS1 MG PO (11:13)
[2016-07-08] MEDS ORDERED: ONE DAILY MULT1 EAC2 PO (11:13)
[2016-07-08] MEDS ORDERED: GABAPENTIN300 M2 PO (11:13)
[2016-07-08] MEDS ORDERED: FLUOXETINE HCL20 M2 PO (11:13)
--- NOTE | 2016-07-08 11:18 | CP SOUTH PROGRESS NOTE PSYCH ---
Psych (Inpt) Progress Note Progress Note Include the following elements, when applicable: Involvement in the active treatment of the patient with behavioral observations of the patient and the patient's response to the treatment. Review of the ongoing treatment process in the context of the treatment plan. Indication of how multi-disciplinary staff members are carrying out the treatment plan. Plans for future interventions and recommendations for revision of the treatment plan. Liaison with other physicians/providers. Progress Note: I discussed this patient's progress to date, current mental status, treatment process in the context of the treatment plan, and discharge planning with staff/ team in the daily morning inpatient team meeting. I also met with the patient myself in individual session. S: "I feel a lot better!" O: Current Medications Sig/Alejandrina Start time Last Medication Dose Route Stop Time Status Admin Acetaminophen 975 MG Q6P PRN 06/30 2100 DCD 07/08 PO 1011 [place] Butter/Shark 1 ARYAN FOUR TIMES A DAY PRN 07/01 2115 DCD Liver Oil TOP Fluoxetine HCl 40 MG DAILY 06/30 1107 DCD 07/08 PO 0826 Gabapentin 300 MG .STK-MED ONE 07/07 1833 DC PO 07/07 1834 Gabapentin 300 MG Q8P PRN 07/05 1430 DCD 07/08 PO 1010 Insulin Aspart 0 TIDAC/HS 06/30 1700 DCD 07/08 SC 1218 Insulin Detemir 12 UNITS BID 07/05 1000 DCD 07/08 SC 0942 Lipase/Protease/ 1 CAP WM 06/30 1700 DCD 07/08 Amylase PO 1126 Loperamide HCl 2 MG Q6P PRN 06/30 2215 DCD 07/06 PO 1836 Melatonin 9 MG AT BEDTIME 07/03 2200 DCD 07/07 PO 2215 Multivitamins 1 TAB DAILY 06/30 1101 DCD 07/08 PO 0826 Nicotine 4 MG .STK-MED ONE 07/07 1940 DC PO 07/07 194 Nicotine 4 MG Q3P PRN 07/01 1500 DCD 07/08 PO 1126 Omeprazole 20 MG DAILY AC 07/01 0700 DCD 07/08 PO 0737 Prazosin HCl 1 MG AT BEDTIME 07/04 2200 DCD 07/07 PO 2215 Quetiapine Fumarate 50 MG 0800,1400 07/06 0800 DCD 07/08 PO 1304 Vital Signs Date Time Temp Pulse Resp B/P B/P Pulse O2 O2 Flow FiO2 Mean Ox Delivery Rate 07/08 1216 76 114/59 07/08 0821 96.0 81 106/59 07/07 2215 97.7 83 18 119/62 07/07 1937 97.7 83 11907/07 1546 73 111/67 A: Chart, progress notes, FS, labs, VS and medication list were reviewed. Met with patient today on the date of discharge. He presented alert and oriented to person, place, time and situation. He was pleasant and cooperative on encounter. Eye contact was appropriate. Speech was normal in rate, tone and volume. Affect was full-range, non-labile. Mood was euthymic. He denied feeling hopeless, helpless, worthless and guilty. He reported his sleep and appetite were good. He denied further episodes of nightmares. Thought process was linear and goal-directed. Patient expressed motivation for sobriety and to follow-up with residential rehabs post-discharge. He denied urges/cravings to use alcohol. He expressed willingness to attend daily AA/NA meetings and attend [facility] for dual IOP. He reported his "girlfriend" as a protective factor and expressed she is a positive and sober support. He denied passive and active suicidal ideation, plans and intent. He denied homicidal ideation, auditory and visual hallucinations. He stated and also believed he will not harm himself or others. There was nor evidence of paranoia or delusions. He reported tolerating medications well and denied untoward medication effects. He reported feeling safe and ready for discharge. P: 1. Discharge today to girlfriend's home. 2. F/u at [facility] for IOP intake on 07/13/16 at 9AM. Patient verbalized understanding of appointment. 3. Patient was advised to abstain from all substances; to attend daily AA/NA meetings and to obtain a sponsor for support in sobriety. 4. Discharge prescriptions printed, reviewed and given to patient on discharge. 5. In the event of an emergency, call 911/go to nearest emergency department. Patient verbalized understanding of instructions.
--- NOTE | 2016-07-08 11:18 | DISCHARGE SUMMARY REPORT-PSYCH ---
Visit Information Visit Dates/Diagnosis' Admission Date: 06/30/16 Discharge Date: 07/08/16 Reason for Admission: Suicide attempt by self-strangulation while intoxicated. Treatment and medication nonadherence. Psy Discharge Primary Diag: MDD, recurrent, severe s/p suicide attempt Psy Discharge Secondary Diag: Alcohol use disorder, severe; R/O Unspecified bipolar disorder; pancreatic insufficiency. Diabetes. Hospital Course Significant Lab Findings: Lab Free T4 0.88 ng/dL 07/05/16 0625 Glucose 179 mg/dL H 06/29/161941 HDL Cholesterol 63 mg/dL H 06/29/161941 LDL Cholesterol, Calc 22 mg/dL L 06/29/161941 TSH 1.450 uIU/mL 07/05/16624 Serum Alcohol 277.0 MG/DL 06/29/161941 Course Complications: None. Consultations: The patient was seen for admission history and physical by car installations supervisor Dr. Linda Gomez. Please see her note for additional information. The patient was further consulted by endocrinologists Dr. Redd Rojas and Dr. Sebastian Bell for inpatient diabetes management. Given the patient's reported weight loss of approximately 30lbs, his insulin regimen was adjusted. Levemir was adjusted to 12 units twice a day and Novolog was adjusted as follows per endocrinology: Novolog Sliding Scale Before Meals (Three times a day): Less than 80mg/dl: initiate hypoglycemia protocol 80-150 mg/dl: 7 units 151-200 mg/dl: 8 units 201-250 mg/dl: 9 units 251-300 mg/dl: 10 units 301-350 mg/dl: 11 units 351-400 mg/dl: 12 units More than 400 mg/dl: 13 units and call Novolog Sliding Scale at Bedtime: 251-300 mg/dl: 2 units 301-350 mg/dl: 3 units 351-400 mg/dl: 4 units More than 400 mg/dl: 5 units and call MD Allergies: Coded Allergies: adhesive tape (UNKNOWN REACTION TO SURGICAL TAPE 05/13/15) tramadol (Mild, DIZZY 05/13/15) ketorolac (From TORADOL) (MUSCLE CRAMPING 01/12/16) Hospital Course/TX Response: The patient was monitored on the unit for safety, mood, suicidal ideation and alcohol withdrawal. He participated in multimodal treatments on the unit. He was monitored on CIWA protocol and was started on an Ativan taper for alcohol withdrawal. He successfully completed Ativan taper without complications. He was restarted on Prozac 40mg every morning for depression/anxiety. He was briefly trialed on Abilify 5mg nightly for mood stabilization, however experienced akathesia; this was immediately discontinued. Shortly after, Seroquel 25mg was started as needed for anxiety/mood stability. He tolerated Seroquel well and dosing was adjusted to 50mg twice daily. Gabapentin 300mg every 8 hours as needed was started for break-through anxiety. Prazosin 1mg was started at bedtime for nightmares. Melatonin 9mg was started for sleep induction. The patient reported tolerating all medications well and denied untoward medication effects. During the course of hospitalization, the patient's mood and affect improved. Suicidal ideation remitted. He expressed motivation for sobriety and was in agreement to eventual admission to residential rehabs. Referrals were sent to [facility], [facility] and [facility] during the hospital course. The patient was agreeable to following-up with these referrals post-discharge regarding bed availability. A family meeting was held with the patient, his significant other and Dena Dickinson LCSW. The patient's treatment progress, level of safety and discharge planning were reviewed and discussed. The patient's significant other was agreeable to having the patient return to her home and follow-up with Dual IOP and residential programs. The patient was also in favor of this treatment plan. The patient's significant other expressed no safety concerns regarding the patient's discharge from hospital. On the date of discharge, 07/08/16, the patient presented alert and oriented to person, place, time and situation. He was pleasant and cooperative on encounter. He had no complaints. Eye contact was appropriate. Speech was normal in rate, tone and volume. Affect was full-range, non-labile. Mood was euthymic. He denied feeling hopeless, helpless, worthless and guilty. He reported his sleep and appetite were good. He denied further episodes of nightmares. Thought process was linear and goal-directed. Patient expressed motivation for sobriety and to follow-up with residential rehabs post-discharge. He denied urges/cravings to use alcohol. He expressed willingness to attend daily AA/NA meetings and attend [facility] for dual IOP. He reported his "girlfriend" as a protective factor and expressed she is a positive and sober support. He denied passive and active suicidal ideation, plans and intent. He denied homicidal ideation, auditory and visual hallucinations. He stated and also believed he will not harm himself or others. There was no evidence of paranoia or delusions. He reported tolerating medications well and denied untoward medication effects. He reported feeling safe and ready for discharge. Discharge HBIPS - Tobacco Use Treatment Offered Post DC Medications Offered: Script Given-See Med List Post DC Tobacco Treatment Plan: Refused Tobcco Tx Pgm - EtOH/Drug Use D/O Treatment Offered Post DC Medications Offered: Ref Med EtOH/Drug Use D/O Post DC EtOH/SubAbuse TX Plan: Other SubAbuse/Dual Pgm Program Appt Date: 07/13/16 Program Appt Time: 0900 Metabolic Screening - Screen if on a Neuroleptic Medication - Metabolic screening should include: - Blood Pressure, BMI, Glucose or Hgb A1c, & a - Lipid profile from within the past 365 days. Metabolic Screening () Not Applicable, patient not on a neuroleptic. OR ([X]) Patient on a neuroleptic(s) . Enter below results for Glucose or Hemoglobin A1C, and lipid panel if obtained during the last 365 days. BMI: 21.900 Blood Pressure: 114/59 Laboratory Results (If applicable): Lab Cholesterol 98 MG/DL 06/29/161941 Cholesterol/HDL Ratio 1.6 % 06/29/161941 Glucose 179 mg/dL H 06/29/161941 HDL Cholesterol 63 mg/dL H 06/29/161941 LDL Cholesterol, Calc 22 mg/dL L 06/29/161941 Triglycerides 68 mg/dL 06/29/161941 Discharge Instructions General Discharge Information Discharge Medications: Discharge Medications- (Dose, route, freq, indication): HOME MEDICATION LIST START taking these NEW Home Medications: Prazosin Dose: ORAL, AT BEDTIME for Qty: 14 Printed Hydrochloride 1 Milligram nightmares Refills: 0 (Minipress) 1 MG Take 1 cap by mouth at CAPSULE bedtime. Last Taken:07/07/16 Time:2214 Gabapentin Dose: ORAL, EVERY 8 HOURS Qty: 42 Printed (Gabapentin) 300 MG 300 Milligram NEEDED as needed for Refills: 0 CAPSULE ANXIETY Take 1 cap by mouth every 8 hours as needed for anxiety. Fluoxetine HCl Dose: ORAL, DAILY for Qty: 28 Printed (Fluoxetine HCl) 20 40 Milligram depression/anxiety Refills: 0 MG CAPSULE Take 2 caps (40mg) by mouth every morning. Last Taken:07/08/16 Time:0830 Quetiapine Fumarate Dose: ORAL, 0800,1400 for Qty: 28 Printed (Seroquel) 50 MG 50 Milligram anxiety Refills: 0 TABLET Take 1 tablet by mouth twice daily. Last Taken:07/08/16 Time:829 Multivitamin (One Dose: ORAL, DAILY for VITAMIN Qty: 14 Printed Daily Multivitamin) 1 Tablet SUPPORT Refills: 0 1 EACH TABLET Take 1 tab by mouth daily. Last Taken:07/08/16 Time:829 Melatonin Dose: ORAL, AT BEDTIME for Qty: 42 Printed (Melatonin) 3 MG 9 Milligram sleep induction Refills: 0 TABLET Take 3 tabs by mouth at bedtime. Last Taken:07/07/16 Time:2214 Nicotine Polacrilex Dose: ORAL, EVERY 3 HOURS Qty: 30 Printed (Nicorelief) 4 MG 4 Milligram NEEDED as needed for Refills: 0 GUM nicotine craving Insulin Aspart, Dose: Inject into fatty Qty: 5 Printed Recombinant (Novolog 0-13 Units tissue, SEE INSTRUCTIONS Refills: 0 Flexpen) 100 UNIT/ML for diabetes INSULN.PEN Novolog Sliding Scale Before Meals (Three times a day): Less than 80mg/dl: initiate hypoglycemia protocol 80-150 mg/dl: 7 units 151-200 mg/dl: 8 units 201-250 mg/dl: 9 units 251-300 mg/dl: 10 units 301-350 mg/dl: 11 units 351-400 mg/dl: 12 units More than 400 mg/dl: 13 units and call Novolog Sliding Scale at Bedtime: 251-300 mg/dl: 2 units 301-350 mg/dl: 3 units 351-400 mg/dl: 4 units More than 400 mg/dl: 5 units and call Last Taken:07/08/16 Time:0830 CONTINUE taking these Home Medications: Folic Acid (Folic Acid) Dose: ORAL, DAILY for 1 MG TABLET 1 Milligram nutrition Lipase/Protease/Amylase Dose: ORAL, WITH MEALS for (Zensaimap 5,000 Units 7 Capsule pancreatic insufficiency Capsule) [id number] Last Taken:07/08/16 KIRILL. Time:829 Omeprazole (Omeprazole) Dose: ORAL, DAILY BEFORE 20 MG CAPSULE. 40 Milligram BREAKFAST for GERD Last Taken:07/08/16 Time:07 Insulin Detemir (Levemir Dose: Inject into fatty Renewed Flextouch) 100 UNIT/ML 12 Unit tissue, TWICE DAILY for Printed (3 ML) INSULN.PEN Diabetes Take 12 units SC twice daily. Last Taken:07/08/16 Time:09 Your Preferred Pharmacy [id number] [place], [place] [id number] Multiple Neuroleptics: ([X]) Not Applicable OR Document below three failed attempts at monotherapy, or a plan to taper to monotherapy, or augmentation of Clozapine. () Patient's Diet: Regular. Patient's Activity: No restrictions. DC Disposition: The patient to return to the home of his girlfriend in [place], [place]. Recommendations: The patient was advised to please take his medications as prescribed. He was advised to abstain from all substances, attend daily AA/NA meetings and to obtain a sponsor for support in sobriety. He was advised to follow-up with aftercare plans. He was advised that in the event of an emergency, call 911/go to nearest emergency department. Patient verbalized understanding of all instructions. *Recommend considering an outpatient trial of alcohol deterrant medications such as Naltrexone or Vivitrol due to the patient's chronic relapse history. Patient had an intolerance to Campral in the past. Referred To: Provider Referral Service Date: 07/13/16 Referred To: [LUISITO] Notes: LUISITO [address] [place] [address] [address] [place] [address] (t)[phone] Walk in 07/13/16 @ 9AM. Copies To: LUISITO
[2016-07-08 12:16] VITALS: BP 114/59
--- NOTE | 2016-07-08 12:41 | NUR ---
Blood sugar before lunch 417. 13 units of Novolog given as per order and Dr. Bell was notified of findings. Awaiting call back from . Will continue to monitor.
[2016-07-08] MEDS ORDERED: NICORELIEF4 MG PO (12:43)
== END 2016-07-08 13:30 | DRG 751 ==
LOC: ENRESERVTM → ENRESERVDT → ERH 00:26 → CP SOUTH 11:02 → ENPENDDIS 11:02 → ERHI 11:02 → DELPENDDIS 11:02 → CP SOUTH 12:31
PROVIDERS: ADMIT Psychiatry & Neurology Addiction Medicine
DX: F33.2 Major depressive disorder, recurrent severe without psychotic features (principal); F10.20 Alcohol dependence, uncomplicated; K86.89 Other specified diseases of pancreas; E11.9 Type 2 diabetes mellitus without complications
CPT/HCPCS: 36415; 80307; 96361; 96372; 96374; 96375; G0463; G0480; J0131; J3101; J3490; J7060

== ENCOUNTER 2016-07-27 11:01 | Emergency (ER) | payer OTHER ==
[~2016-07-27] VITALS: Ht 175.3 cm; Wt 66.7 kg
[~2016-07-27 11:01] MED LIST changes: +GABAPENTIN300 M2 PO; +MELATONIN3 M4 PO; +MINIPRESS1 MG PO; +SEROQUEL50 M1 PO
--- NOTE | 2016-07-27 11:31 | ED GENERAL ADULT ---
History of Present Illness General Chief Complaint: General Adult Stated Complaint: ABD PAIN, HIGH BLOOD SUGAR Source: patient Exam Limitations: no limitations Vital Signs & Intake/Output Vital Signs & Intake/Output Vital Signs Date Time Temp Pulse Resp B/P B/P Pulse O2 O2 Flow FiO2 Mean Ox Delivery Rate 07/27 1259 97.5 80 20 104/58 95 Room Air 07/27 1252 97.7 07/27 1222 97.7 07/27 1110 97.7 82 20 118/74 98 Room Air Allergies Coded Allergies: adhesive tape (UNKNOWN REACTION TO SURGICAL TAPE 05/13/15) tramadol (Mild, DIZZY 05/13/15) ketorolac (From TORADOL) (MUSCLE CRAMPING 01/12/16) Reconcile Medications Fluoxetine HCl 20 MG CAPSULE 40 MG PO DAILY depression/anxiety Take 2 caps (40mg) by mouth every morning. Gabapentin 300 MG CAPSULE 300 MG PO Q8P PRN ANXIETY Take 1 cap by mouth every 8 hours as needed for anxiety. Insulin Aspart, Recombinant (Novolog Flexpen) 100 UNIT/ML INSULN.PEN 0-13 UNITS SC SEE ADMIN CRITERIA diabetes Novolog Sliding Scale Before Meals (Three times a day): Less than 80mg/dl: initiate hypoglycemia protocol 80-150 mg/dl: 7 units 151-200 mg/dl: 8 units 201-250 mg/dl: 9 units 251-300 mg/dl: 10 units 301-350 mg/dl: 11 units 351-400 mg/dl: 12 units More than 400 mg/dl: 13 units and call Novolog Sliding Scale at Bedtime: 251-300 mg/dl: 2 units 301-350 mg/dl: 3 units 351-400 mg/dl: 4 units More than 400 mg/dl: 5 units and call Insulin Detemir (Levemir Flextouch) 100 UNIT/ML (3 ML) INSULN.PEN 12 UNIT SC BID Diabetes Take 12 units SC twice daily. Lipase/Protease/Amylase (Zenisaura Tavarez 5,000 Units Capsule) [id number] CAPSULE. 7 CAP PO WM pancreatic insufficiency Metoclopramide HCl (Reglan) 10 MG TABLET 1 TAB PO BID PRN NAUSEA 30 minutes before meals and bedtime Prazosin Hydrochloride (Minipress) 1 MG CAPSULE 1 MG PO AT BEDTIME nightmares Take 1 cap by mouth at bedtime. Quetiapine Fumarate (Seroquel) 50 MG TABLET 50 MG PO 0800,1400 anxiety Take 1 tablet by mouth twice daily. Triage Note: PT TO ED C/O ABD PAIN AND HIGH BLOOD SUGAR. PT SENT IN BY MD. TAVERA [address]. C/O ABD PAIN, N/V/D SINCE YESTERDAY. Triage Nurses Notes Reviewed? yes Onset: Abrupt Duration: day(s): Timing: recent history HPI: 07/27/16 11:14 35-year-old man presents to the emergency department complaining of epigastric abdominal pain and elevated blood sugar. The patient saw his primary care doctor Dr. Sylvain hurtado who referred him to the emergency department for care. He was concerned about acute pancreatitis and diabetic ketoacidosis. The patient admits to one episode of vomiting yesterday. No fever. The onset of the symptoms were abrupt, the duration has been approximately 48 hours, the severity is significant; as his symptoms required him to come to the emergency department for care he has associated abdominal pain and vomiting AM Past History Travel History Traveled to [place] past 21 day No Medical History Any Pertinent Medical History? 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 No Review of Systems Review of Systems Constitutional: Denies: fever. EENTM: Reports: no symptoms. Respiratory: Denies: short of breath. Cardiovascular: Denies: chest pain. GI: Reports: abdominal pain. Genitourinary: Reports: no symptoms. Musculoskeletal: Reports: no symptoms. Skin: Denies: rash. Neurological/Psychological: Reports: see HPI. Hematologic/Endocrine: Denies: bruising, bleeding. Physical Exam Physical Exam General Appearance: alert, awake, anxious, mild distress Head: atraumatic, normal appearance Eyes: Bilateral: normal appearance, PERRL, EOMI. Ears, Nose, Throat: normal pharynx, normal ENT inspection Neck: normal inspection, supple, full range of motion Respiratory: normal breath sounds, chest non-tender, no respiratory distress Cardiovascular: regular rate/rhythm Peripheral Pulses: 4+ radial (R), 4+ radial (L) Gastrointestinal: soft, tenderness, epigastric, no rebound or guarding Back: normal inspection, normal range of motion Extremities: normal inspection, normal range of motion, no edema Neurologic/Psych: no motor/sensory deficits, awake, alert, oriented x 3, normal gait Skin: intact, normal color, warm/dry Core Measures ACS in differential dx? No CVA/TIA Diagnosis: No Severe Sepsis Present: No Septic Shock Present: No Progress Differential Diagnoses I considered the following diagnoses in my evaluation of the patient: Gastroparesis, diabetic ketoacidosis, cholecystitis, gastritis, pancreatitis Plan of Care: Orders Procedure Date/time Status FingerStick- Glucose 07/27 1325 Active LIPASE 07/27 1220 Complete AMYLASE 07/27 1220 Complete COMPREHENSIVE METABOLIC PANEL 07/27 1143 Complete CBC WITHOUT DIFFERENTIAL 07/27 1143 Complete ACETONE 07/27 1143 Complete Laboratory Tests 07/27/16 1220: Anion Gap 15, Estimated GFR > 60, BUN/Creatinine Ratio 27.5 H, Glucose 419 H, Calcium 9.4, Total Bilirubin 0.6, AST 38, ALT 79 H, Alkaline Phosphatase 80, Total Protein 7.0, Albumin 4.4, Globulin 2.6, Albumin/Globulin Ratio 1.7, Amylase < 30 L, Lipase 11 L, CBC w Diff NO MAN DIFF REQ, RBC 5.21, MCV 85.2, MCH 29.1, RDW 13.8, MPV 10.4, Gran % 73.2, Lymphocytes % 23.3, Monocytes % 2.2, Eosinophils % 0.9, Basophils % 0.4, Absolute Granulocytes 6.3, Absolute Lymphocytes 2.0, Absolute Monocytes 0.2, Absolute Eosinophils 0.1, Absolute Basophils 0, PUBS MCHC 34.2, Acetone Level POSITIVE : UNDILUTED 05/09/17 1144: Amylase Cancelled, Lipase Cancelled Initial ED EKG: none Departure Departure Disposition: HOME OR SELF CARE Condition: Stable Clinical Impression Primary Impression: Abdominal pain Secondary Impressions: Hyperglycemia Referrals: CAROL MCCORMICK MD (PCP/Family) Departure Forms: Customer Survey General Discharge Information Prescriptions: Current Visit Scripts Metoclopramide HCl (Reglan) 1 TAB PO BID PRN NAUSEA #10 TAB 30 minutes before meals and bedtime Comments 07/27/16 2 PM Labs essentially unremarkable. Glucose was 419. Fingerstick was repeated after fluids and insulin it came down to 226. Amylase and lipase are normal. The patient has had intermittent episodes of pancreatitis in the past. He is requesting to leave. The patient was instructed to take his medications as directed and to follow-up with his doctor in the next 48 hours or return to the emergency department if worse. Reglan was given for possible gastroparesis. The patient declined imaging studies and I think this was reasonable and shared decision-making was utilized in his care. Critical Care Note Critical Care Note Critical Care Time: non-applicable
[2016-07-27 12:29] LABS: ABSOLUTE BASOPHIL COUNT 0 /CUMM (0.0-0.2); ABSOLUTE EOSINOPHIL COUNT 0.1 /CUMM (0.0-0.7); ABSOLUTE GRANULOCYTE CT 6.3 /CUMM (1.4-6.5); ABSOLUTE MONOCYTE COUNT 0.2 /CUMM (0.10-0.60); BASOPHIL % 0.4 % (0.0-2.0); EOSINOPHIL % 0.9 % (0-5); GRANULOCYTE % 73.2 % (42.2-75.2); HEMATOCRIT 44.4 % (42-52); MEAN CORPUSCULAR HGB 29.1 PG (27.0-31.0); MEAN CORPUSCULAR HGB CONC 34.2 G/DL (33.0-37.0); MEAN CORPUSCULAR VOLUME 85.2 FL (80.0-94.0); MEAN PLATELET VOLUME 10.4 FL (7.4-10.4); PLATELET COUNT 228 /CUMM (130-400); RBC DISTRIBUTION WIDTH 13.8 % (11.5-14.5); RED BLOOD CELL CT 5.21 /CUMM (4.70-6.10); WHITE BLOOD CELL COUNT 8.6 /CUMM (4.8-10.8)
[2016-07-27 12:59] VITALS: BP 104/58
[2016-07-27] MEDS ORDERED: REGLAN10 M1 PO (14:02)
== END 2016-07-27 14:14 ==
LOC: ERH 11:01
PROVIDERS: Emergency Medicine
DX: R10.13 Epigastric pain (principal); E11.65 Type 2 diabetes mellitus with hyperglycemia
CPT/HCPCS: 96361; 96374; 96375; J0131